=== PATIENT | male | born 1965 ===

== ENCOUNTER 2024-09-28 10:34 | Inpatient (IN) | payer OTHER, SELFPAY ==
[2024-09-28] VITALS (69 sets, daily range): BP systolic 51–220; BP diastolic 39–133; BMI 29.9
[2024-09-28 07:50] LABS: Glucose - Point of Care 97 mg/dl (70-99)
--- NOTE | 2024-09-28 07:51 | ED.GENMED ---
History of Present Illness
General
Chief Complaint: Blood Pressure Problem
Source: ambulance crew and other (alf guards)
Exam Limitations: altered mental status
Time Seen by Provider: 09/28/24 07:47
Nursing documentation reviewed up to this point in time: agreed with
History of Present Illness
History of Present Illness:
59-year-old male presents emergency department due to altered mental status. He was last seen last night. Upon arrival he had a seizure, and bit his tongue.
Past History
Social History
Living: alf
Review of Systems
Review of Systems
Allergies reviewed?: Yes
Unable to obtain full review of systems at this time due to: other (Altered mental status)
All Other Systems: Not applicable
EENT: Reports other (Tongue bleeding)
Neurological: Reports other (Altered mental status, seizures)
Phy Exam
Physical Exam
Physical Exam:
Physical Exam
General: Hypertensive 220/110
Neck: supple. no meningeal signs. normal posterior pharynx
Heart: s1/s2 regular rate and rhythm, no murmur. equal radial
pulses.
HEENT: Pupils equal round reactive to light, EOMI, tongue bleeding
Lungs: no acute respiratory distress. clear bilaterally
Abdomen: normal bowel sounds. not tender. no CVAT
Neuro: Eyes open spontaneously, not following command, moving all extremities
Skin: no rash
Psychiatric: well kept. interactive and cooperative
Extremities: no edema. no calf tenderness. negative homans. good distal pulses
Course
Orders/Labs/Results
Orders:
Orders
09/28/24 Breakfast
NPO
Allow oral meds: No
Allow clear liquids: No
NPO with Ice Chips: No
09/28/24 07:40
Lorazepam [Ativan] 0.5 mg IV NOW STA
09/28/24 07:41
Lorazepam [Ativan] 2 mg .ROUTE .STK-MED ONE
09/28/24 07:43
Electrocardiogram (*1) Urgent
Reason for Study: Hypertension, Benign
09/28/24 07:44
EKG- Treatment ONCE
09/28/24 07:47
CT Head & Neck Angio W/wo IV Urgent
Comment:
Reason For Exam: altered mental status, seizure
CT Head W/o Iv Contrast Urgent
Comment:
Reason For Exam: altered mental status, seizure
Bedside Glucose- Treatment ONCE
Cardiac Monitoring- Treatment ONCE
Pulse Ox/cont/shift [RESP] Stat
Quantity: 1
09/28/24 07:52
Levetiracetam Injectable [Keppra] 1,000 mg IV NOW STA
09/28/24 07:53
Urine Drug Abuse Screen Urgent
09/28/24 07:57
Alcohol Urgent
CPK [Creatine Phosphokinase] Urgent
Complete Blood Count/With Diff Urgent
Comprehensive Metabolic Panel Urgent
Cortisol, Random Urgent
Comment: ADD ON
Folate Urgent
Comment: ADD ON
Magnesium Urgent
PTT Urgent
Prolactin Urgent
Prothrombin Time Urgent
Serum Osmolality Urgent
Comment: ADD ON
TSH Reflex To Free T4 Urgent
Comment: ADD ON
Troponin I Urgent
Vitamin B12 Urgent
Comment: ADD ON
09/28/24 08:43
EEG Routine Routine
Reason for Exam: seizure
09/28/24 08:44
Urine Drug Abuse Screen Routine
MR Brain Without Contrast Routine
Comment:
Reason For Exam: seizure
OK for patient to be off Cardiac Monitoring for MRI: No
Recent pill cam endoscopy?: No
09/28/24 08:56
Add On- LAB Urgent
Tests Added?: TSH with reflex T4, serum osmolality
Urine Sodium Urgent
09/28/24 08:57
CR Chest Portable - 1 View Urgent
Comment:
Reason For Exam: altered mental status
Reason Study Needs to be Portable: Patient Unstable
09/28/24 09:08
3% Sodium Chloride 50 ml [Sodium Chloride 3%] 50 ml IV NOW
09/28/24 09:10
Alcohol Routine
Magnesium Routine
Blood Culture Q30M
SALLY Source: Blood/Venous
Specimen Description:
Blood Culture Q30M
SALLY Source: Blood/Venous
Specimen Description:
09/28/24 09:11
Lactic Acid Q4H
Comment: CANCEL 2nd LACTIC ACID IF 1st LACTIC ACID IS LESS THAN 2
09/28/24 09:20
Basic Metabolic Panel Urgent
09/28/24 09:29
Urine Creatinine Stat
Urine Culture Reflexed from UA [Urinalysis Reflex To Culture] Stat
Urine Sodium Stat
Urine Uric Acid Stat
09/28/24 09:30
Add On- LAB Stat
Tests Added?: cortisol random
09/28/24 09:34
Longoria Catheter [Catheter- Indwelling] As Directed
Reason for insertion: I&O's Critical Care
Assess insertion reason daily.Remove if no longer applicable: Yes
09/28/24 09:37
Naloxone [Narcan] 0.4 mg IV NOW STA
09/28/24 09:43
Naloxone [Narcan] 0.4 mg .ROUTE .STK-MED ONE
Propofol 1,000,000 Mcg/100 ml [Diprivan] 1,000,000 mcg in 100 ml .ROUTE .STK-MED
09/28/24 10:07
Admit/Transfer Patient As Directed
Co-Sign Provider:
Level of Care: Inpatient admission
Assign to:: ICU
Physician / Group: Hospitalist
Diagnosis: hyponatremia seizures
Reason for Hospitalization: hyponatremia seizures
Expected length of stay greater than two midnights?: Yes
ELOS- Estimated Length of Stay in days: 5
I certify the patient meets the requirements for IP care: Yes
PRN Pain Medication Management As Directed
May give lesser potent ordered pain med per pt: Yes
preference::
Protocol:: Medication orders for pain may be administered in a
manner that supports deferring to patient preference
when the pt is:
- Requesting an ordered lesser potent pain medication.
Least to most potent pain medications are defined
as: acetaminophen < NSAID < tramadol < opioids
(morphine, oxycodone, hydromorphone).
- Requesting a lesser dose of the same medication IF
ORDERED.
- Requesting a less intrusive route of administration
if both routes are prescribed by the provider (PO <
IV).
09/28/24 10:08
Code Status As Directed
Resuscitation Status: Full Code
09/28/24 10:12
Add On- LAB Urgent
Tests Added?: B12, Folate, B1 serul level
COVID-19 Antigen Stat
Source: Nasal Swab
Drug Screen, Urine [Urine Drug Abuse Screen] Stat
Date Specimen was Collected: 09/28/24
Time Specimen was Collected: 10:11
Osmolality, Random Urine Stat
Date Specimen was Collected: 09/28/24
Time Specimen was Collected: 10:11
Urinalysis Reflex To Culture Urgent
Date Specimen was Collected: 09/28/24
Time Specimen was Collected: 10:11
Urine Microscopic Reflex Cult Urgent
Influenza A+B Rapid Molecular Stat
SALLY Source: Nasal Swab
Specimen Description:
Precautions As Directed
Type of Precautions: Seizure
09/28/24 10:13
NEPHROLOGY CONSULT Routine
Consulting Provider: Augustin Hartman
Was physician already notified: Yes
Reason for consult: hyponatremia
NEUROLOGY CONSULT Routine
Consulting Provider: Monique Rice
Was physician already notified: Yes
Reason for consult: seizures
09/28/24 10:15
PSYCHIATRY CONSULT Routine
Consulting Provider: Ander Alfonso
Was physician already notified: Yes
Reason for consult: concern for psych-meds induced hyponatremia
09/28/24 10:19
Labetalol HCl [Trandate] 10 mg IV Q6HPRN PRN
09/28/24 10:51
BMP [Basic Metabolic Panel] Stat
Procalcitonin Stat
PCT Algorithmm Indication: Respiratory
09/28/24 11:58
BMP [Basic Metabolic Panel] Q4H
Acetaminophen [Tylenol] 650 mg PO Q4HPRN PRN
Bisacodyl [Dulcolax] 10 mg RECTAL [id number] PRN
Dextrose 5%/Lactringers 1000ML [D5lr] 1,000 ml IV 1,000 mls/hr
Docusate W/Senna [Senokot-S] 1 tablet PO BIDPRN PRN
Ondansetron Injectable [Zofran] 4 mg IV Q8HPRN PRN
Polyethylene Glycol Powder [Miralax] 17 grams PO DAILYPRN PRN
09/28/24 11:58
Activity As Directed
Activity Level: Out of Bed-Early Mobility
Pneumatic Compression Sleeves As Directed
Type: Knee high
Vital Signs As Directed
Frequency: Per unit guidelines
DX Deep Vein Thrombosis Video Routine
09/28/24 12:00
Ampicillin/Sulbactam 3 G [Unasyn] 3 gm 0.9% Sodium Chloride 100 ml [Nss] 100 ml IV Q6H
09/28/24 13:00
Lactic Acid Q4H
Comment: CANCEL 2nd LACTIC ACID IF 1st LACTIC ACID IS LESS THAN 2
09/28/24 15:58
BMP [Basic Metabolic Panel] Q4H
09/28/24 16:00
Thiamine Injection 500 mg 0.9% Sodium Chloride 250 ml [Nss] 250 ml IV Q8
09/28/24 19:58
BMP [Basic Metabolic Panel] Q4H
09/28/24 20:00
Levetiracetam Injectable [Keppra] 500 mg IV Q12
09/28/24 23:58
BMP [Basic Metabolic Panel] Q4H
09/29/24 03:58
BMP [Basic Metabolic Panel] Q4H
09/29/24 06:00
Complete Blood Count/With Diff IN AM
Comprehensive Metabolic Panel IN AM
09/29/24 07:58
BMP [Basic Metabolic Panel] Q4H
09/29/24 11:58
BMP [Basic Metabolic Panel] Q4H
09/29/24 15:58
BMP [Basic Metabolic Panel] Q4H
Abnormal Lab Results
09/28/24 09/28/24 09/28/24
07:57 09:11 10:12
MPV 11.0 H fL
(7.4-10.4)
Abs Immat Gran (auto) 0.1 H 10^3/uL
(0-0.05)
Absolute Neuts (auto) 7.9 H 10^3/uL
(1.4-6.5)
Neutrophils % 77.7 H %
(42.2-75.2)
Lymphocytes % 15.5 L %
(20.5-51.1)
Sodium 115 L* mmol/L
(135-145)
Chloride 75 L mmol/L
(98-107)
BUN 21 H mg/dl
(9-20)
Serum Osmolality 240 L mOsm/kg
(275-300)
Lactic Acid 2.3 H mmol/L
(0.7-2.0)
Creatine Kinase 860 H U/L
(55-170)
Ur Occult Blood Reflex 4+ A
(Negative)
Leukocyte Esterase Rfl Trace A
(Negative)
Urine RBC 16-20 A /HPF
(0-2)
Urine Osmolality 192 L mOsm/kg
(300-900)
09/28/24 07:57
09/28/24 07:57
Vital Signs
Initial and Last Documented VS:
Initial Vital Signs
BP
220/133
09/28/24 07:40
Last Documented Vital Signs
Temp Pulse Resp BP Pulse Ox
94.4 F L 69 17 141/99 94
09/28/24 12:00 09/28/24 11:45 09/28/24 11:45 09/28/24 11:30 09/28/24 11:30
MDM/Problems Addressed
Differential Diagnosis Includes:
Intracranial hemorrhage, CVA, hypertensive emergency, hyponatremia, epileptic seizure disorder
MDM/Problems Addressed:
59-year-old male with seizures induced by hyponatremia. Respiratory status stable. CT head no acute findings. 50 mL bolus of 3% normal saline given in consultation with nephrology, Dr. Hartman. Tongue laceration bleeding controlled. Blood
pressure improved. Admit to ICU. Patient seen by neurology, recommended Eli.
Chronic conditions affecting care: HTN and Other (Sickle cell)
Acute Exacerbation and/or Progression of Chronic Illness: HTN
*Radiology
Radiology exam reviewed: radiology read reviewed (CT head no acute findings, CTA no acute findings, except acute airway aspiration)
*Pulse Oximetry
Patient hypoxic: no
*EKG
Interpreted by ED Provider?: Yes
EKG Intrepretation Date: 09/28/24
EKG Intrepretation Time: 07:45
Interpretation: abnormal
Comparison EKG: no comparison EKG present
Heart Rate: 68
Rate: normal
Rhythm: sinus
Isabella: normal axis
Interval: normal interval
QRS Pattern: left vent hypertrophy
Ischemia: no ischemia
*Preschool Aide Interpretation
Rate: normal
Interpretation: normal
Heart Rate: 78
Rhythm: sinus
*Critical Care Note
Total Time (30-74mins, 75-104mins- exclusive of procedures): 45
comment:
Critical care statement: A total of 45 minutes of critical care time was provided for this patient. This includes management of unstable vital signs, evaluation of the patient at bedside, reviewing the patient's pertinent medical records, discussion
with consultants, review of old EKGs and review of pertinent medical records. This time with separate from time utilized to perform the aforementioned documented procedures
Patient Management
Social determinants of health affecting care: Living situation, Poor outpatient follow-up and Poor social support
Discussion with other providers: Hospitalist and Taker Down (Nephrology, neurology)
Escalation/DeEscalation of care consider admission/obs:
ICU admission indicated
ED Attending Note
-
Portions of this chart may have been created with voice recognition software.� Occasional wrong word or��sound alike� substitutions may have occurred due to the inherent limitations of voice recognition software.
Discharge Plan
Departure
Patient Disposition: Admit
Date of Disposition: 09/28/24
Time of Disposition: 08:58
Admit to: ICU
Presentation/result/management discussed w/ accepting MD/DO: Hospitalist
Patient with high blood pressure during this ER visit?: Yes
Condition: Serious
Discharge Problem:
Acute hyponatremia, Seizure, Acute metabolic encephalopathy, Hypothermia
Interventions
Interventions:
*Risk Screen - Suicide Last Done: 09/28/24 08:43
*General Assessment Last Done: 09/28/24 08:43
*Neglect/Abuse Screening Last Done: 09/28/24 08:43
ED- Fall Risk Assessment Last Done: 09/28/24 08:43
*ED COVID-19 Vaccine History Last Done: 09/28/24 08:43
*Nursing Disposition Last Done: 09/28/24 12:00
ED- Cardiac Assessment Last Done: 09/28/24 08:43
ED- Neurological Assessment Last Done: 09/28/24 08:43
ED- Pulmonary Assessment Last Done: 09/28/24 08:43
Discharge Date and Time
Discharge Date/Time: 09/28/24 12:00
[2024-09-28] MEDS: KEPPRA 1000 MG IV (08:24)
[2024-09-28] MEDS: ATIVAN 0.5 MG IV (08:30)
[2024-09-28 08:31] LABS: % Basophils 0.1 % (0-2); % Eosinophils 0.2 % (0-6); % Immature Granulocytes 0.5 % (0-0.5); % Lymphocytes 15.5 % (20.5-51.1); % Neutrophils 77.7 % (42.2-75.2); Absolute Immature Granulocytes 0.1 10^3/uL (0-0.05); Absolute Lymphocytes 1.6 10^3/uL (1.2-3.4); Absolute Monocytes 0.6 10^3/uL (0.1-0.6); Absolute Neutrophils 7.9 10^3/uL (1.4-6.5); Hematocrit 39.6 % (39.0-52.0); Hemoglobin 13.9 g/dL (13.0-18.0); Mean Corp Hgb Conc. 35.1 g/dL (33.0-37.0); Mean Corpuscular Volume 82.5 fL (80.0-94.0); Nucleated Red Blood Cells % 0 % (-); Platelet Count 133 10^3/uL (130-400); Red Cell Dist. Width 12.9 % (11.5-14.5); White Blood Cell Count 10.1 10^3/uL (4.8-10.8)
[2024-09-28 08:37] LABS: INR 1.08; PT 14.3 Sec (11.4-14.6)
[2024-09-28 08:38] LABS: APTT 29.3 Sec (23.4-35.0)
--- NOTE | 2024-09-28 08:38 | CON.NEURO ---
Consultation
Order
Date of Consultation: 09/28/24
Requesting Provider: Ander Crump DO
Reason for Consult: Seizure
Neurology Consultation Note.
HPI: This is a 59-year-old man who presented to [facility] from [facility] on 09/28/2024 with seizure.
ER VS: 220/133, 78, 14, 33.8 C
EKG: NSR, QTc Int : 448 ms
PDMP: None
Labs: Glucose�97, sodium�115, CK 860
CT head wo contrast-moderate white matter leukoaraiosis in the right parietal lobe.
mar: Lorazepam 0.5 mg iv GIVEN ON 09/28/24 AT 08:30 am.
PMH: Polysubstance addiction, psychotic DO, NOS
PSH: Unknown
SH: Active inmate at [facility]
FH: Unknown
All: Haloperidol
Medications: Abilify 300 mg every 4 weeks IM, Seroquel 100 mg nightly, lisinopril 40 mg daily, benztropine 0.5 mg nightly, amlodipine 10 mg daily
ROS: Left lip laceration
General: In no acute distress. Restrained
Cardio: Regular rate and rhythm. Extremities are without cyanosis or edema.
Neuro:
Mental Status: stuporous, grimaces to does not follow requests. Guards the face on the left but not on the right
Cranial Nerves: Orthophoric primary gaze pupils 2 mm, nonreactive. Corneals�positive bilaterally. No facial weakness.
Motor: Flaccid quadriplegia.
Reflexes: Trace throughout
Sensory: Does not localize or grimace to noxious stimuli
Coordination: No tremors myoclonic movements
Gait: deferred
Assessment and Plan:
I. Likely provoked seizure (hyponatremia)
II. Hypertensive emergency
III. Multifactorial encephalopathy (postictal, vascular, metabolic, toxic)
IV. Severe hypothermia (infectious versus medication induced, less likely ictal).
-Aspiration and seizure precautions.
-please check TSH, free T4, ua, ua cx, ua tox.
-Avoid medications known to lower seizure threshold (antipsychotics)
-avoid NS overcorrection greater than 4-6 mill equivalents in first 24 hours to prevent osmotic demyelination syndrome
-Thiamine 100mg QD IV
-Brain MRI wo riaida
-Routine EEG
-DVT prophylaxis.
I personally reviewed all radiology and labs along with past medical records pertinent to current medical problems. Total time spent in patient care is 60 minutes.
Thank you for allowing us to participate in the care of this patient. We will continue to follow. Please do not hesitate to contact us with any questions or concerns.
Subjective/Objective
Subjective Data
Date of Service: September 28, 2024
Objective Data
Vital Signs
Temp Pulse Resp BP Pulse Ox
33.8 C L 72 13 162/98 100
09/28/24 07:46 09/28/24 08:16 09/28/24 08:16 09/28/24 08:16 09/28/24 08:15
Lab Results
09/28/24 07:57
Patient Allergies
haloperidol [From Haldol] Allergy (Verified 09/28/24 07:45)
Unknown
Vital Signs and Labs
-
Vital Signs and Labs:
Vital Signs
Temp Pulse Resp BP Pulse Ox
33.8 C L 63 12 116/78 99
09/28/24 07:46 09/28/24 08:45 09/28/24 08:45 09/28/24 08:45 09/28/24 08:30
Lab Results
09/28/24 07:57
PT 14.3 Sec (11.4-14.6) 09/28/24 07:57
INR 1.08 09/28/24 07:57
APTT 29.3 Sec (23.4-35.0) 09/28/24 07:57
Sodium 115 mmol/L (135-145) L* 09/28/24 07:57
Potassium 4.0 mmol/L (3.5-5.1) 09/28/24 07:57
BUN 21 mg/dl (9-20) H 09/28/24 07:57
Glucose 70 mg/dl (70-99) 09/28/24 07:57
Calcium 8.5 mg/dl (8.4-10.2) 09/28/24 07:57
Home Medications
-
Home Medications
acetaminophen 325 mg tablet 325 mg PO BIDPRN PRN mild pain 09/28/24
amlodipine 10 mg tablet (Norvasc) 10 mg PO HS 09/28/24
aripiprazole 300 mg suspension, extended rel. intramuscular syringe (Maria Elena Cano) 300 mg IM QMONTH 09/28/24
benztropine 0.5 mg tablet 0.5 mg PO HS 09/28/24
lisinopril 40 mg tablet 40 mg PO HS 09/28/24
quetiapine 100 mg tablet (Seroquel) 100 mg PO HS 09/28/24
therapeutic multivitamin 1 tab PO HS 09/28/24
[2024-09-28 08:39] LABS: ALT (SGPT) 28 U/L (0-50); AST (SGOT) 50 U/L (17-59); Albumin 4.4 g/dl (3.5-5.0); Alcohol < 10 mg/dl; Alkaline Phosphatase 80 U/L (38-126); Blood Urea Nitrogen 21 mg/dl (9-20); Calcium 8.5 mg/dl (8.4-10.2); Carbon Dioxide 26 mmol/L (22-30); Chloride 75 mmol/L (98-107); Creatine Phosphokinase 860 U/L (55-170); Estimated Creatinine Clearance 73 ml/min; Glucose 70 mg/dl (70-99); Magnesium 1.6 mg/dl (1.6-2.3); Sodium 115 mmol/L (135-145); Total Bilirubin 0.8 mg/dl (0.2-1.3); Total Protein 6.9 g/dl (6.3-8.2); eGFR > 60.00
[2024-09-28 08:42] LABS: Troponin I 0.024 ng/ml
--- NOTE | 2024-09-28 09:17 | W.CON.NEPH ---
Consultation
-
Date/Time Consultation Requested: September 28, 2024 9 AM
Date/Time Consultation Performed: September 28, 2024 9:15 AM
Requesting Provider: Dr. Crump
Performing Provider: Dr. Augustin Hartman
Reason for Consultation: Hyponatremia
Medical History
-
Chief Complaint: Altered mental status hyponatremia
History of Present Illness:
59-year-old male presents emergency department due to altered mental status. He was last seen last night. Upon arrival he had a seizure In the emergency room. He is arriving from the group home. Patient is verbally unresponsive does respond to
tactile stimuli as he is likely postictal. Unable to get history secondary to patient's mental status although he is on multiple antipsychotic medications including Seroquel and Abilify.
History is obtained in discussing with the ER nurse, group home guards and chart review.
Patient was seen around 9:20 AM and had a seizure in the ER around 730 to 7:40 AM was treated with Ativan. Is also hypothermic
Past Medical History
As per HPI
Social History
Currently in group home Otherwise unobtainable but according to group home guards no access to alcohol
Family History
Unobtainable as per clinical status
Allergies / Home Medications
Allergy/AdvReac Type Severity Reaction Status Date / Time
haloperidol [From Haldol] Allergy Unknown Verified 09/28/24 07:45
�Medication �Instructions �Recorded �Confirmed �Type
acetaminophen 325 mg tablet 325 mg PO BIDPRN PRN mild pain 09/28/24 09/28/24 History
amlodipine 10 mg tablet (Norvasc) 10 mg PO HS 09/28/24 09/28/24 History
aripiprazole 300 mg suspension, 300 mg IM QMONTH 09/28/24 09/28/24 History
extended rel. intramuscular
syringe (Abilify Maintena)
benztropine 0.5 mg tablet 0.5 mg PO HS 09/28/24 09/28/24 History
lisinopril 40 mg tablet 40 mg PO HS 09/28/24 09/28/24 History
quetiapine 100 mg tablet (Seroquel) 100 mg PO HS 09/28/24 09/28/24 History
therapeutic multivitamin 1 tab PO HS 09/28/24 09/28/24 History
Review of Systems
-
Minimal responsiveness unobtainable with altered mental status
Physical Exam
Vital Signs
Vital Signs
Temp Pulse Resp BP Pulse Ox
92.8 F L 63 12 116/78 99
09/28/24 07:46 09/28/24 08:45 09/28/24 08:45 09/28/24 08:45 09/28/24 08:30
Lab Results
WBC 10.1 10^3/uL (4.8-10.8) 09/28/24 07:57
RBC 4.80 10^6/uL (4.70-6.10) 09/28/24 07:57
Hgb 13.9 g/dL (13.0-18.0) 09/28/24 07:57
Hct 39.6 % (39.0-52.0) 09/28/24 07:57
Plt Count 133 10^3/uL (130-400) 09/28/24 07:57
Sodium 115 mmol/L (135-145) L* 09/28/24 07:57
Potassium 4.0 mmol/L (3.5-5.1) 09/28/24 07:57
Chloride 75 mmol/L (98-107) L 09/28/24 07:57
Carbon Dioxide 26 mmol/L (22-30) 09/28/24 07:57
BUN 21 mg/dl (9-20) H 09/28/24 07:57
Creatinine 1.1 mg/dL (0.7-1.3) 09/28/24 07:57
eGFR > 60.00 09/28/24 07:57
Glucose 70 mg/dl (70-99) 09/28/24 07:57
Calcium 8.5 mg/dl (8.4-10.2) 09/28/24 07:57
Albumin 4.4 g/dl (3.5-5.0) 09/28/24 07:57
Physical Exam
General no acute distress
HEENT no cephalic atraumatic extraocular muscle intact no scleral icterus no JVD neck supple
lungs clear to auscultation bilateral
heart regular S1-S2 positive
abdomen soft nontender positive bowel sounds
extremities no edema pulses present bilateral
Neurologically Responsive to tactile stimulus only
Skin no lesions no abrasions no petechiae
Psych no bizarre behavior
Data Reviewed
-
Radiology: Image Personally Visualized and interpreted
Labs: Labs Reviewed by me
Critical Care Time (in minutes): 31 minutes
Assessment/Plan
-
59-year-old male presents emergency department due to altered mental status. He was last seen last night. Upon arrival he had a seizure In the emergency room. He is arriving from the group home. Patient is verbally unresponsive does respond to
tactile stimuli as he is likely postictal. Unable to get history secondary to patient's mental status although he is on multiple antipsychotic medications including Seroquel and Abilify
Found to have a sodium of 115 renal consult for sodium of 115
Impression:
Hyponatremia 115 on admission
Status post seizure
Psychiatric history
Hypothermic
Plan:
With active seizure on arrival will give 50 mL of 3% saline.
Insert Longoria catheter.
Repeat basic metabolic panel after bolus.
Every 4 BMP.
Strict monitoring of urine output to avoid overcorrection greater than 4-6 mill equivalents in first 24 hours.
Fluid restrict/n.p.o.
Total Time Spent with Patient (in minutes): 31 minutes Critical care time
[2024-09-28 09:41] LABS: Magnesium 1.6 mg/dl (1.6-2.3)
[2024-09-28 09:42] LABS: Lactic Acid 2.3 mmol/L (0.7-2.0)
[2024-09-28 09:43] LABS: Alcohol None Detected
[2024-09-28] MEDS: NARCAN 0.4 MG IV (09:46)
[2024-09-28] MEDS: SODIUM CHLORIDE 3% 50 IV (09:48)
--- NOTE | 2024-09-28 10:16 | HPS.HSE ---
Addendum entered and electronically signed by Kenneth Nguyen MD 09/28/24 15:50:
#Mild R to L mediastinal shift
without signs of pneumothorax on XR
Original Note:
Family Physician
-
Family Physician: Facility [facility]
Chief Complaint
-
seizures
History of Present Illness
59yo M with HTN, psychiatric d/o, incarcerated in [facility] brought 2/2 significant sedation, poor responsiveness and seizures with tongue biting. Found severe hyponatremia. GIven 3% saline. Narcan given in ED- no significant effect but would also be
masked by post-ictal state.
Medical History
Past Medical History
Past Medical History: Reports Other (see HPI)
Past Surgical History: Reports None
Social History
Tobacco: Non-smoker
Alcohol: None
Drug: None
Living: Half-Way
Family History
Family History: Not pertinent
Allergies / Home Medications
Allergies reflects when Allergies were last updated in [facility].
Home Medications with original date entered in [facility]
Allergy/Medication List:
Allergies
Allergy/AdvReac Type Severity Reaction Status Date / Time
haloperidol [From Haldol] Allergy Unknown Verified 09/28/24 07:45
Home Medications
acetaminophen 325 mg tablet 325 mg PO BIDPRN PRN mild pain 09/28/24
amlodipine 10 mg tablet (Norvasc) 10 mg PO HS 09/28/24
aripiprazole 300 mg suspension, extended rel. intramuscular syringe (Abilify Maintena) 300 mg IM QMONTH 09/28/24
benztropine 0.5 mg tablet 0.5 mg PO HS 09/28/24
lisinopril 40 mg tablet 40 mg PO HS 09/28/24
quetiapine 100 mg tablet (Seroquel) 100 mg PO HS 09/28/24
therapeutic multivitamin 1 tab PO HS 09/28/24
Review of Systems
-
Unable to obtain full review of systems at this time due to: Acuity
Physical Exam
Vital Signs
Vital Signs
Temp Pulse Resp BP Pulse Ox
92.8 F L 63 12 116/78 99
09/28/24 07:46 09/28/24 08:45 09/28/24 08:45 09/28/24 08:45 09/28/24 08:30
Physical Exam
General: No Apparent Distress, Comfortable and Other (lethargic)
HEENT: Anicteric, Moist mucous membranes and Other (pinpoint pupils)
Respiratory: Crackles; No Wheezes or Rales
Cardiac: Regular Rhythm; No Bradycardia or Murmur
GI: Soft, Non Tender and Non Distended
Musculoskeletal: No Clubbing, No Cyanosis and No Edema
Skin: Warm; No Dry or Jaundice
Neuro: Nonfocal/grossly intact and Other (lethargic); No Facial Droop
Laboratory Results
-
09/28/24 07:57
Laboratory Results
PT 14.3 Sec (11.4-14.6) 09/28/24 07:57
INR 1.08 09/28/24 07:57
APTT 29.3 Sec (23.4-35.0) 09/28/24 07:57
Lactic Acid 2.3 mmol/L (0.7-2.0) H 09/28/24 09:11
Total Bilirubin 0.8 mg/dl (0.2-1.3) 09/28/24 07:57
AST 50 U/L (17-59) 09/28/24 07:57
ALT 28 U/L (0-50) 09/28/24 07:57
Alkaline Phosphatase 80 U/L (38-126) 09/28/24 07:57
Troponin I 0.024 ng/ml 09/28/24 07:57
Data Reviewed
-
CT Scan: Report Reviewed by me
Lab Data: Labs Reviewed by me
Impression/Plan
-
A/P
#Hyponatremia, severe with seizures
most likely 2/2 psychiatric meds - hold
3%NS and follow BMP q4h
Nephrology follow up
Keppra loaded in ED - will continue
Urine NA, Cr, Osm, Uric acid, UA
seizure precautions
Neprhology consult
#Acute metabolic encephalopathy
significant sedation
most likely post-ictal
watch for respiratory distress and CTA noted acute airway aspiration
CT head without acute hemorrhage or stroke
MRI brain
neurology
Keppra
CTA head without LVO or carotid stenosis
check UDS
NPO
check B12, folate, start thiamine Wernicke protocol
#Hypothermia
#Aspiration, cannot r/o early pneumonia
With no hypoglycemia and no hypotension - unlikely mixedema coma or severe adrenal insufficiency. Complete w/u with TSH and Cortisol
2/2 seizures
Start Unasyn for now
Warming blanket
#Psychiatric d/o
hold meds
Psych consult for further mgmt when patient more awake
#Essential HTN with HTN emergency on admission
labetalol PRN
DVT ppx SCDs
Full code
I have spent at least 78min of critical care time reviewing chart, test results, communication with cosnultants and direct patient care
[2024-09-28 10:22] LABS: Cortisol, Random 52.8 ug/dl; TSH Reflex To Free T4 2.85 uIU/ml (0.47-4.68)
[2024-09-28 10:28] LABS: Osmolality Serum 240 mOsm/kg (275-300)
[2024-09-28 10:32] LABS: Urine Albumin Trace (Neg - Trace); Urine Bilirubin Negative (Negative); Urine Character Slightly Cloudy (Clear); Urine Color Yellow; Urine Glucose Negative (Negative); Urine Ketone Negative (Negative); Urine Leukocyte Trace (Negative); Urine Nitrite Negative (Negative); Urine Occult Blood 4+ (Negative); Urine Specific Gravity 1.005 (<1.030); Urine Urobilinogen Negative (Neg - 1+)
[2024-09-28 10:36] LABS: Osmolality Urine 192 mOsm/kg (300-900)
[2024-09-28 10:39] LABS: COVID-19 Antigen Negative (Negative)
[2024-09-28 10:53] LABS: Amphetamines Negative (Negative); Barbiturates Negative (Negative); Benzodiazepines Negative (Negative); Buprenorphine Negative (Negative); Cocaine Negative (Negative); Marijuana Negative (Negative); Methadone Negative (Negative); Methamphetamines Negative (Negative); Opiates Negative (Negative); Phencyclidine Negative (Negative); Tricyclic Antidepressants Negative (Negative)
--- NOTE | 2024-09-28 11:08 | CON.INTV ---
Consultation
Consultation Request
Date/Time Consultation Requested: 09/28/2024-11 AM
Date/Time Consultation Performed: 09/28/2019 5-12 noon
Requesting Provider: Hospitalist
Performing Provider: Dr. Dobbins
Reason for Consultation: Severe hyponatremia/seizures/critical care management
Medical History
-
Chief Complaint: Mental status changes
History of Present Illness:
59-year-old non-smoking incarcerated male with a history of hypertension and psychiatric disorder presented after seizure with mental status changes found to have severe hyponatremia given 3% saline-supervisor claims consulted for severe hyponatremia,
seizures, critical care management 09/28/2024. Patient has significant mental status changes and review of systems was unreliable.
Past Medical History
Past Medical History: None (Hypertension. Psychiatric disorder. Polysubstance abuse. Incarcerated.)
Social History
Tobacco: Non-smoker
Alcohol: None
Drug: None
Personal: Single
Living: Half-Way
Occupational Exposures: No known asbestos exposure
Environmental Exposures: No known tuberculosis exposure
Family History
Family History: Reviewed & Not Pertinent
Allergies / Home Medications
Allergies
Allergy/AdvReac Type Severity Reaction Status Date / Time
haloperidol [From Haldol] Allergy Unknown Verified 09/28/24 07:45
Home Medications
�Medication �Instructions �Recorded �Confirmed �Last Taken �Type
acetaminophen 325 mg tablet 325 mg PO BIDPRN PRN mild pain 09/28/24 09/28/24 Unknown History
amlodipine 10 mg tablet (Norvasc) 10 mg PO HS 09/28/24 09/28/24 Unknown History
aripiprazole 300 mg suspension, 300 mg IM QMONTH 09/28/24 09/28/24 09/23/24 History
extended rel. intramuscular
syringe (Maria Elena Terrella)
benztropine 0.5 mg tablet 0.5 mg PO HS 09/28/24 09/28/24 Unknown History
lisinopril 40 mg tablet 40 mg PO HS 09/28/24 09/28/24 Unknown History
quetiapine 100 mg tablet (Seroquel) 100 mg PO HS 09/28/24 09/28/24 Unknown History
therapeutic multivitamin 1 tab PO HS 09/28/24 09/28/24 Unknown History
Review of Systems
-
Unable to Obtain full review of systems at this time due to: Other (Per HPI)
Vitals / Labs / Diagnostic Testing
Vital Signs
Temp Pulse Resp BP Pulse Ox
92.8 F L 63 12 116/78 99
09/28/24 07:46 09/28/24 08:45 09/28/24 08:45 09/28/24 08:45 09/28/24 08:30
Lab Data
09/28/24 07:57
Laboratory Results
09/28/24
07:57
PT 14.3
INR 1.08
APTT 29.3
Microbiology
09/28/24 10:12 Nasal Swab Influenza Types A & B (MARY ALICE) - Final
Negative for Influenza A & B, NAAT
Negative results must be combined with clinical observations
and patient history.
Nucleic Acid Amplification test (NAAT)performed on the
[employer] platform.
Diagnostic Testing:
Physical Exam
-
Exam:
Well-nourished and well-developed in no apparent distress
HEENT-atraumatic, normocephalic
Neck-supple, no JVD, no bruit, significant oral secretions
Heart-regular rate and rhythm-no murmurs, rubs or gallops
Chest-clear to auscultation, no wheezes, crackles
Back-no tenderness
Abdomen-soft, nontender, nondistended, no hepatosplenomegaly
Extremities-no cyanosis, clubbing, edema and good peripheral pulses
Integument-intact, no rashes, lesions or ecchymosis
Neurologically not alert, not oriented not moving extremities
Assessment
-
59-year-old non-smoking incarcerated male with a history of hypertension and psychiatric disorder presented after seizure with mental status changes found to have severe hyponatremia given 3% saline-supervisor claims consulted for severe hyponatremia,
seizures, critical care management 09/28/2024.
Severe hyponatremia with subsequent seizures on psychiatric medications-serum sodium 115
Status post seizure-provoked from hyponatremia
Metabolic encephalopathy
Hypothermia
Aspiration-possible pneumonia related to it-CT chest with mild secretions right side of the trachea layering dependent portion right mainstem bronchus and moderate secretions bronchus intermedius
Hypertensive emergency-blood pressure 220/133
Lactic acidosis
Right hemidiaphragm elevation-mild
Conditions present prior to admission:
Hypertension.
Psychiatric [id number] Abilify, Seroquel
Polysubstance abuse
Incarcerated.
Plan
Patient will be admitted to medical intensive care unit with severe symptomatic hyponatremia
Supplemental oxygen as needed
Monitor end-tidal CO2
Monitor for respiratory depression and need for intubation
Intubated mechanically ventilated if necessary
Aspiration precautions
Nebulizers if needed-currently not bronchospastic
Aspiration precautions-suspect aspiration event-note CT head and neck angiogram-CT chest portion with retained secretions
Follow serum sodium level closely
3% saline-cautious administration
Goal correction 8 mEq/liter in the first 24 hours
Monitor neurologic status closely-rapid correction can rarely leads to osmotic demyelination syndrome
Nephrology evaluation ongoing-correspondence reviewed
Diuretics and potential use of Samsca per nephrology
Check TSH
Check cortisol
Check urine osmolarity and sodium
Neurology evaluation-correspondence reviewed
Thiamine initiated
Brain MRI with gadolinium pending
EEG pending
Keppra provided
Ativan as needed
Check cultures
Follow chest x-ray
Empiric antibiotics-Unasyn initiated
Monitor blood pressure closely
Antihypertensives per nephrology
Nicardipine if needed
DVT prophylaxis recommended
Early nutrition once mental status improves
Early mobilization
Critical care statement: A total of 65 minutes of critical care time was provided for this patient today. This includes management of unstable vital signs, evaluation of the patient at bedside, reviewing the patient's pertinent medical records
including radiographs, microbiology, laboratory evaluations, and discussion with primary team, consultants, pharmacy, charge nurse, critical care nursing, and respiratory therapy.
Diagnostic data:
Chest x-ray 09/28/2024-mild right to left mediastinal shift, moderate elevation right hemidiaphragm
CT head 09/28/2024-no acute intracranial hemorrhage or transcortical infarct, moderate white matter leukoaraiosis in the right parietal lobe
CT head neck angiogram 09/28/2024-acute airway aspiration, no evidence for vertebral artery occlusion or dissection, no evidence for large vessel intracranial stenosis or occlusion
Data Reviewed
-
EKG: Report reviewed by me
Radiology: Report reviewed by me
CT Scan: Image personally visualized and interpreted and Report reviewed by me
Medical Tests (Nuc Med, Echo etc): Report reviewed by me
Labs: Labs reviewed by me
Old Records: Reviewed
Critical Care Time (in minutes): 65
[2024-09-28 11:13] LABS: Blood Urea Nitrogen 20 mg/dl (9-20); Calcium 7.9 mg/dl (8.4-10.2); Carbon Dioxide 26 mmol/L (22-30); Chloride 78 mmol/L (98-107); Estimated Creatinine Clearance 89 ml/min; Glucose 68 mg/dl (70-99); Potassium 3.7 mmol/L (3.5-5.1); Sodium 111 mmol/L (135-145); eGFR > 60.00
[2024-09-28 11:25] LABS: Urine Amorphous Seen
[2024-09-28 11:26] LABS: Urine Red Blood Cell 16-20 /HPF (0-2)
[2024-09-28 11:46] LABS: Procalcitonin < 0.05 ng/ml (0.0-0.25)
--- NOTE | 2024-09-28 12:10 | PTCARENOTE ---
Pt arrived from ED shackled to [facility] (formerly [facility]3] with 2 guards, RN, Monitored. Eyes opened, moaning, non-verbal, not following commands. Pupils pinpoint and reactive. Drooling blood tinged oral secretions. Pt with blood in his mouth from laceration on his
tongue seen near the tip of his tongue and on the left side. Good peripheral pulses, no edema. Left AC#20g protective catheter and right FA#20g protective catheter both flushed and patent with blood return. CHG bath given. Breath sounds coarse
posteriorly, gurgly intermittently. RA pulse ox 97%. +BSX4. NPO. Tongue swollen. Warming blanket as ordered for Core temp 95.6. Indwelling albarran catheter with punch colored urine with clots noted. Stat lock changed to prevent tugging. Upon
completing admission assessment he was noted to have a seizure @ approximately 1233 lasting about 30 seconds. He had rhythmic right facial twitching, upward gaze, HR as high as 107, then ventricular bigeminy in the 70's, desaturated to 50% on RA, 6
liters ETCO2 nasal cannula applied. He was postictal, sonorous with no gag & flaccid. Dr. Dobbins, Dr. Nguyen and Dr. Hartman notified. Ativan administered. Multiple 3% sodium Chloride orders in the NOV. Awaiting further clarification from
Patrick and Dr. Hartman. Safe environment maintained. Aspiration precautions maintained.
[2024-09-28 12:16] LABS: Folate 12.7 ng/ml (2.76-20); Vitamin B12 556 pg/ml (239-931)
[2024-09-28] MEDS: SODIUM CHLORIDE 3% 250 IV (12:25)
[2024-09-28] MEDS: ATIVAN 2 MG IV (12:40)
[2024-09-28] MEDS: UNASYN IV ×3 (12:54→23:31)
--- NOTE | 2024-09-28 13:09 | PTCARENOTE ---
Clarification on sodium chloride bags and drip rates with pharmacy, Dr. Hartman & Dr. Nguyen. Verified IVF to be infusing. Currently D5LR @ 1000ml/hr ordered, will hold as ordered form Dr. Nguyen. Size 32 righ5t nare nasal trumpet inserted
for airway protection, ETCO2 19-25, Dr. Dobbins aware. Sonorous since seizure @ 1233 w/ Right facial twitching, groaning, drooling bloody secretions, diminished respirations with desaturation 50% on RA, HR 107, lasting for no more than 30 seconds.
Remains unresponsive & sonorous at this time. Pharmacy obtaining correct sodium chloride infusion/bolus. Left FA#18 protective catheter placed.
[2024-09-28 13:12] LABS: Glucose - Point of Care 76 mg/dl (70-99)
--- NOTE | 2024-09-28 13:15 | W.PN.UPDATE ---
Addendum entered and electronically signed by Kenneth Nguyen MD 09/28/24 15:57:
Urine sodium and osmolarity low - suspect that patient has polydipsia-induced hyponatremia
Original Note:
Update Note
Progress Note Update
with worsening hyponatremia- switch thiamine to IM injections to avoid dilution with NS
[2024-09-28 13:28] LABS: Lactic Acid 2.4 mmol/L (0.7-2.0)
[2024-09-28] MEDS: SODIUM CHLORIDE 3% 100 IV (13:28)
--- NOTE | 2024-09-28 13:30 | CON.INTV ---
Consultation
Consultation Request
Date/Time Consultation Requested: 09/28/2024,10:41
Date/Time Consultation Performed: 09/28/2024,13:32
Requesting Provider: Kenneth Nguyen
Performing Provider: Alin Nicole
Reason for Consultation: Severe hyponatremia with Seizures
Medical History
-
Chief Complaint: Seizures and change in mental status
History of Present Illness:
Patient is a 59-year-old male coming from skilled nursing, past medical history of polysubstance use disorder, essential hypertension, and psychiatric disorder who was brought to the emergency after seizures associated with tongue bite and change in mental
status.He did not respond to naloxone in ER, and his blood sugar level was 70. His workup showed severe hyponatremia of 115, received 3% hypertonic saline boluses in the ER, fresh BMP pending.Patient unconscious and unable to provide any history.
[employer] consultation for severe hyponatremia, seizures and declining mental status on 09/28/2024
Past Medical History
Past Medical History: HTN, Psychiatric and Other (Substance)
Social History
Tobacco: Non-smoker
Alcohol: None
Drug: None
Personal: Single
Living: Care Home
Employment: Other (Patient unable to provide history)
Family History
Family History: Unable to Obtain
Allergies / Home Medications
Allergies
Allergy/AdvReac Type Severity Reaction Status Date / Time
haloperidol [From Haldol] Allergy Unknown Verified 09/28/24 07:45
Home Medications
�Medication �Instructions �Recorded �Confirmed �Last Taken �Type
acetaminophen 325 mg tablet 325 mg PO BIDPRN PRN mild pain 09/28/24 09/28/24 Unknown History
amlodipine 10 mg tablet (Norvasc) 10 mg PO HS 09/28/24 09/28/24 Unknown History
aripiprazole 300 mg suspension, 300 mg IM QMONTH 09/28/24 09/28/24 09/23/24 History
extended rel. intramuscular
syringe (Abilify Maintena)
benztropine 0.5 mg tablet 0.5 mg PO 09/28/24 09/28/24 Unknown History
lisinopril 40 mg tablet 40 mg PO HS 09/28/24 09/28/24 Unknown History
quetiapine 100 mg tablet (Seroquel) 100 mg PO HS 09/28/24 09/28/24 Unknown History
therapeutic multivitamin 1 tab PO HS 09/28/24 09/28/24 Unknown History
Review of Systems
-
Unable to Obtain full review of systems at this time due to: Other (Patient unconscious)
Vitals / Labs / Diagnostic Testing
Vital Signs
Temp Pulse Resp BP Pulse Ox
94.4 F L 69 17 141/99 94
09/28/24 12:00 09/28/24 11:45 09/28/24 11:45 09/28/24 11:30 09/28/24 11:30
Lab Data
09/28/24 07:57
Laboratory Results
09/28/24
07:57
PT 14.3
INR 1.08
APTT 29.3
Microbiology
09/28/24 10:12 Nasal Swab Influenza Types A & B (MARY ALICE) - Final
Negative for Influenza A & B, NAAT
Negative results must be combined with clinical observations
and patient history.
Nucleic Acid Amplification test (NAAT)performed on the
[employer] platform.
Diagnostic Testing:
Physical Exam
-
HEENT: Normocephalic and Other (Tongue bite wound on lateral side of tongue)
Cardiovascular: S1/S2, Regular Rhythm and Other (Tachycardia)
Respiratory: Other (Gurgling sounds in throat, harsh vesicular breathing with coarse rhonchi)
GI: Soft, Non Distended and Normal Bowel Sounds
Neurology: Other (GCS 3/15, patient unconscious)
Skin: Warm
General: Other
Assessment
-
Impression
Patient is a 59-year-old male coming from skilled nursing,with past medical history of polysubstance use disorder, essential hypertension, and psychiatric disorder who was brought to the emergency after seizures associated with tongue bite and change in
mental status.He did not respond to naloxone in ER, and his blood sugar level was 70. His workup showed severe hyponatremia of 115, received 3% hypertonic saline boluses in the ER, fresh BMP pending.Patient unconscious and unable to provide any
history. [employer] consultation for severe hyponatremia, seizures and declining mental status on 09/28/2024
Assessment
Severe symptomatic hyponatremia of 115, with seizures associated with tongue bite
Hypothermia, Temperature 94.4
Metabolic encephalopathy secondary to hyponatremia/postictal phase/hypothermia
Aspiration event -CT chest with mild secretions right side of the trachea layering dependent portion right mainstem bronchus and moderate secretions bronchus intermedius
Hypertensive emergency with evident endorgan damage
Conditions present prior to admission:
Essential hypertension.
Unknown psychiatric disorder-on Abilify and Seroquel
Polysubstance abuse
Incarcerated.
Plan
Severe symptomatic hyponatremia, resulting in seizures associated with tongue bite
Supplemental oxygen as needed
Patient has labored breathing, gurgling sounds audible, follow ABG
Intubation may be necessary
CT chest indicates a possible aspiration event
Aspiration precautions
Maintain oxygen saturation, follow ABGs, assess intubation needs closely
Frequent BMP, to monitor sodium levels closely
Cautious administration of 3% hypertonic saline to avoid rapid correction as that can lead to osmotic demyelination syndrome, frequent neuro checkups to avoid
Recommend 8 mEq/L correction in 24 hours
Neurology consultation
Nephrology consultation appreciated -diuretics and potential use of Samsca per nephrology
Hypothermia
TSH and serum cortisol within normal limits
Total leukocyte count within normal limits
Empiric Unasyn started
Blood cultures pending
Seizures
No prior history of seizures
Could be secondary to hyponatremia
CT scan of head-mild white matter leukoaraiosis
CTA neck-bilateral severe tortuousity of internal carotid arteries
Brain MRI with gadolinium pending
EEG pending
Keppra 500 mg 12 hourly
Ativan as needed
Hypertensive emergency
Blood pressure is running high with a peak of 225/113 on presentation
Continue to monitor blood pressure closely
DVT prophylaxis sequential compression devices
N.p.o. for now, advance diet as tolerated
No prior history of cardiac disease, EKG done in ER shows QT interval of 448 ms
Breathing on 5 L oxygen, no prior history of pulmonary disease
Full code
Diagnostic data:
Chest x-ray 09/28/2024-mild right to left mediastinal shift, moderate elevation right hemidiaphragm
CT head 09/28/2024-no acute intracranial hemorrhage or transcortical infarct, moderate white matter leukoaraiosis in the right parietal lobe
CT head neck angiogram 09/28/2024-acute airway aspiration, no evidence for vertebral artery occlusion or dissection, no evidence for large vessel intracranial stenosis or occlusion
[2024-09-28 13:34] LABS: Blood Urea Nitrogen 19 mg/dl (9-20); Carbon Dioxide 27 mmol/L (22-30); Chloride 75 mmol/L (98-107); Estimated Creatinine Clearance 73 ml/min; Glucose 73 mg/dl (70-99); Potassium 3.7 mmol/L (3.5-5.1); Sodium 111 mmol/L (135-145); eGFR > 60.00
--- NOTE | 2024-09-28 13:39 | PTCARENOTE ---
Dr. Rice notified via TT of the seizure @ 1233 with desaturation. She is aware he received Ativan IVP at that time and 6 liters nasal cannula applied. Orders obtained.
[2024-09-28 13:45] LABS: Urine Albumin 2+ (Neg - Trace); Urine Bilirubin Negative (Negative); Urine Character Very Cloudy (Clear); Urine Color Red; Urine Glucose Negative (Negative); Urine Ketone Negative (Negative); Urine Leukocyte Trace (Negative); Urine Nitrite Negative (Negative); Urine Occult Blood 4+ (Negative); Urine Specific Gravity 1.005 (<1.030); Urine Urobilinogen Negative (Neg - 1+)
--- NOTE | 2024-09-28 13:57 | EEGC.RPT ---
Continuous EEG Report
Recording
Start Date of Data Reviewed: 09/28/24
Done with Video Recording: Yes
Electrocardiogram: Unremarkable
Report
TECHNICAL REMARKS:��This is a technically satisfactory eighteen channel record employing 21 disc electrodes applied according to a measured international 10-20 electrode placement system.��There were no significant technical difficulties.��The study
was done on a [employer] System.
�
CLINICAL HISTORY: This is a�59-year-old man with severe hyponatremia and seizure. This study was requested to look for epileptiform abnormalities.
STUDY DURATION:� 27 min,�46 secs
MEDICATIONS: Keppra, Ativan
REPORT: �At the onset of the EEG, the patient is stuporous. The background activity consists of 54-6 Hz, impersistent, posteriorly dominant, moderate amplitude, symmetric, and rhythmic activity. Continuous generalized, 2-3 Hz, 30-50 uV at times
sharply contoured polymorphic delta activity was seen.� Stepwise intermittent photic stimulation(1-31 hz) did not induce additional abnormalities. Hyperventilation was not performed. Drowsiness is characterized by low amplitude mixed frequency
activity, decreased eye blinking, and muscle artifact. No epileptiform activity was seen. Excessive beta activity was present.
�
IMPRESSION: �This is an abnormal EEG recorded in altered mental status due to a moderate-to severe generalized slowing. This finding indicates diffuse cerebral dysfunction, nonspecific in terms of etiology.�
�
[2024-09-28 14:10] LABS: Amphetamines Negative (Negative); Barbiturates Negative (Negative); Benzodiazepines Negative (Negative); Buprenorphine Negative (Negative); Cocaine Negative (Negative); Marijuana Negative (Negative); Methadone Negative (Negative); Methamphetamines Negative (Negative); Opiates Negative (Negative); Phencyclidine Negative (Negative); Tricyclic Antidepressants Negative (Negative)
[2024-09-28 14:12] LABS: Urine Squamous Cell 0-2 /LPF (Few)
[2024-09-28 14:13] LABS: Urine Red Blood Cell >100 /HPF (0-2)
[2024-09-28 14:18] LABS: Phosphorus 2.6 mg/dl (2.5-4.5)
[2024-09-28 14:24] LABS: Urine Sodium 18 mmol/L (30-90)
[2024-09-28] MEDS: CEREBYX 132 MG IV (14:39)
--- NOTE | 2024-09-28 15:00 | PTCARENOTE ---
PICC currently being placed by VAT team. Dr. Hartman placed orders for Hypertonic Sodium chloride. BMP's to follow.
[2024-09-28] MEDS: MAGNESIUM SULFATE 102 GRAMS IV (15:26)
[2024-09-28 15:44] LABS: Urine Uric Acid 10.1 mg/dl
[2024-09-28] MEDS: KCL 160 MEQ IV (15:45)
--- NOTE | 2024-09-28 15:55 | PTCARENOTE ---
Notified care team that he is unabl to secure his airway. He has no gag with deep oral suction. Desaturation to 88% with ETCo2 19-24. Dr. Dobbins to the bedside. Intubated with #8ETT secured 25cm on the right, Anesthesia noted the tongue lacerations
and blood on his tongue. AC 18/450/.10/+5. Orders obtained for sedation, restraints and follow up ABG.
[2024-09-28] MEDS: SODIUM CHLORIDE 3% 500 IV (16:00)
--- NOTE | 2024-09-28 16:08 | W.PN.ANESINT ---
Anesthesia Intubation Note
- Intubation Note
Intubation Note:
Diagnosis: respiratory distress
Blade: glidescope
Tube Size: 8.0
Depth: 24 cm at lip
Side Taped: right
Drugs Used: propofol- 100 mg, succs- 100 mg , phenylephrine- 200 mcg
Grade View: 1
EtCO2 Present: yes
Atraumatic: yes
Attempts: 1
Insertion Start and Stop Time: 15:58-16:03
SaO2 Pre: 95
SaO2 Post: 100
Glidescope Used: yes
Other Airway Adjustments: no
Pre-Oxygenated: yes
Portable Chest X-Ray: yes
RSI: yes
Suctioned: yes
Bilateral Breath Sounds Confirmed: yes
Vent Settings:
Settings per ___Attending Physician
[2024-09-28 16:46] LABS: B.E. 0.5 mmol/L; HCO3 24.6 mmol/L (21-28); PCO2 37 mmHg (35-48); PO2 281 mmHg (83-108); pH 7.43 (7.35-7.45)
[2024-09-28 16:47] LABS: Lactic Acid 0.9 mmol/L (0.7-2.0)
[2024-09-28] MEDS: THIAMINE INJECTION 200 MG IV ×2 (16:55→23:31)
--- NOTE | 2024-09-28 16:59 | CS.PSYCHR ---
Consult Summary - Psychiatry
-
Pt is a 59 yo male, brought from [facility] due to change in mental status since last night. Pt had seizure shortly after arrival to the ED, found to have hyponatremia, with sodium level 115 at 8am, 111 at 1 pm. Pt seen after admission to the ICU, not
responsive, with labored respirations, had to be intubated. Psychotropic medications being held due to concern for hyponatremia. Pt given IV Ativan and started on Keppra post-seizure.
Psych Hx: unspecified psychotic disorder, Rx Abilify Maintena long-acting injection 300 mg IM Q month (last injection unknown), Seroquel 100 mg HS, Cogentin 0.5 mg HS
SH: hx of polysubstance use; from [facility]
MSE: unable to interview, unresponsive, then had to be intubated
Imp: Unspecified Psychotic d/o
Encephalopathy due to Hyponatremia, leading to seizure, possibly related to psychotropic medications
Rec: Will follow and assess further when pt able to interview; agree with holding off Seroquel and Cogentin for now
Will follow
[2024-09-28 17:01] LABS: Blood Urea Nitrogen 21 mg/dl (9-20); Calcium 7.8 mg/dl (8.4-10.2); Carbon Dioxide 28 mmol/L (22-30); Chloride 75 mmol/L (98-107); Estimated Creatinine Clearance 61 ml/min; Glucose 130 mg/dl (70-99); Potassium 4.2 mmol/L (3.5-5.1); Sodium 109 mmol/L (135-145); Triglycerides 34 mg/dl (10-149); eGFR > 60.00
[2024-09-28] MEDS: ATROPINE SULFATE 1% DROPS 1 DROP SL (17:51)
--- NOTE | 2024-09-28 19:20 | PTCARENOTE ---
Clarified with Dr. Nguyen frequency of BMP's. Will obtain Q2H and send one now as ordered.
--- NOTE | 2024-09-28 19:24 | PTCARENOTE ---
TT'dby Dr. Garcia to obtain BMP's Q3H. Dr. Nguyen notified.
[2024-09-28] MEDS: KEPPRA 500 MG IV (19:41)
[2024-09-28 19:54] LABS: Blood Urea Nitrogen 22 mg/dl (9-20); Carbon Dioxide 25 mmol/L (22-30); Chloride 77 mmol/L (98-107); Estimated Creatinine Clearance 73 ml/min; Glucose 92 mg/dl (70-99); Potassium 4.6 mmol/L (3.5-5.1); Sodium 111 mmol/L (135-145); eGFR > 60.00
[2024-09-28] MEDS: LEVOPHED 258 MG IV (20:13)
--- NOTE | 2024-09-28 20:22 | PTCARENOTE ---
Pt bladder scan completed approx 19:20, >247ml. Flushed with 20cc NSS, urine flowing--punch colored with small clots. Repeat bladder scan completed now, 4ml residual. Urine continues to be punch colored w/ clots.
[2024-09-28 20:26] LABS: Prolactin 6.1 ng/ml (3.7-17.9)
--- NOTE | 2024-09-28 20:45 | PTCARENOTE ---
Received pt from previous RN. Pt nonverbal, eyes open, does not follow commands, lethargic/drowsy. NSR w/ PVCs on the monitor. ETT #8 23 @ lip repositioned to the left side. AC settings 18/450/60%/5, O2 sat 100%, lungs coarse. [place] in place, temp
sensing, hygiene provided. 3% NaCl infusing @ 30 ml/hr. Levo bag switched to levo DC in NS (see worklist). Prop gtt (see worklist). Right DL PICC. CHG bath provided. Q2T provided. SCDs in place. Two guards @ bedside. Safe environment maintained.
[2024-09-28 23:09] LABS: Blood Urea Nitrogen 23 mg/dl (9-20); Calcium 7.8 mg/dl (8.4-10.2); Carbon Dioxide 24 mmol/L (22-30); Chloride 78 mmol/L (98-107); Estimated Creatinine Clearance 67 ml/min; Glucose 85 mg/dl (70-99); Potassium 4.9 mmol/L (3.5-5.1); Sodium 111 mmol/L (135-145); eGFR > 60.00
[2024-09-29] VITALS (13 sets, daily range): BP systolic 82–131; BP diastolic 53–90; BMI 27.9
[2024-09-29] MEDS: SUBLIMAZE 50 MCG IV ×2 (00:22→18:10)
--- NOTE | 2024-09-29 00:32 | PTCARENOTE ---
BMP provided Q3 (see labs). AC settings 18/450/40%/5, O2 sat 100%. Systems reviewed, no new changes in assessment. See worklist for gtts. Safe environment maintained.
[2024-09-29] MEDS: DIPRIVAN 100 IV ×3 (00:50→18:37)
--- NOTE | 2024-09-29 00:57 | W.PN.UPDATE ---
Update Note
Progress Note Update
Procedure Note: Arterial Line�
� Left Wrist Arrow 20 (11/17)�
Diagnosis:��Seizure, hyponatremia
IV Line Comments: Uneventful Procedure�
Kelby's test completed pre-procedure: Yes�
A-Line Comments: Sterile technique as per standard protocol, Ultrasound guided insertion�
Functioning A-line in situ: Yes�
A-line Insertion Start Time:0040��
A-line in at:��0045
[2024-09-29 02:08] LABS: Blood Urea Nitrogen 24 mg/dl (9-20); Calcium 7.6 mg/dl (8.4-10.2); Carbon Dioxide 24 mmol/L (22-30); Chloride 81 mmol/L (98-107); Estimated Creatinine Clearance 57 ml/min; Glucose 81 mg/dl (70-99); Potassium 4.8 mmol/L (3.5-5.1); Sodium 114 mmol/L (135-145); eGFR 57.54
--- NOTE | 2024-09-29 02:19 | PTCARENOTE ---
Per Dr. Hartman 3% NaCl gtt can be stopped if Na is 114. On recent blood work Na 114. ICU MEDICAL OFFICE WORKER Garcia notified, 3% NaCl gtt on hold.
[2024-09-29] MEDS: ATROPINE SULFATE 1% DROPS 1 DROP SL ×2 (04:18→20:00)
[2024-09-29 04:35] LABS: B.E. 0.3 mmol/L; HCO3 23.1 mmol/L (21-28); PCO2 31 mmHg (35-48); PO2 203 mmHg (83-108); pH 7.48 (7.35-7.45)
[2024-09-29 04:51] LABS: % Basophils 0.1 % (0-2); % Immature Granulocytes 0.3 % (0-0.5); % Monocytes 5.6 % (1.7-9.3); Absolute Lymphocytes 1.5 10^3/uL (1.2-3.4); Absolute Monocytes 0.6 10^3/uL (0.1-0.6); Absolute Neutrophils 8.3 10^3/uL (1.4-6.5); Hematocrit 32.1 % (39.0-52.0); Hemoglobin 11.7 g/dL (13.0-18.0); Mean Corp Hgb Conc. 36.4 g/dL (33.0-37.0); Mean Corpuscular Volume 79.7 fL (80.0-94.0); Mean Platelet Volume 10.5 fL (7.4-10.4); Nucleated Red Blood Cells % 0 % (-); Platelet Count 115 10^3/uL (130-400); Red Blood Cell Count 4.03 10^6/uL (4.70-6.10); White Blood Cell Count 10.4 10^3/uL (4.8-10.8)
[2024-09-29 05:13] LABS: ALT (SGPT) 22 U/L (0-50); AST (SGOT) 38 U/L (17-59); Albumin 3.1 g/dl (3.5-5.0); Alkaline Phosphatase 68 U/L (38-126); Blood Urea Nitrogen 25 mg/dl (9-20); Calcium 7.9 mg/dl (8.4-10.2); Carbon Dioxide 22 mmol/L (22-30); Chloride 81 mmol/L (98-107); Glucose 80 mg/dl (70-99); Magnesium 1.8 mg/dl (1.6-2.3); Potassium 4.7 mmol/L (3.5-5.1); Sodium 113 mmol/L (135-145); Total Bilirubin 0.9 mg/dl (0.2-1.3); Total Protein 5.4 g/dl (6.3-8.2)
--- NOTE | 2024-09-29 05:15 | PTCARENOTE ---
3% NaCl gtt turned back on for Na of 113, ICU COMPOSITION FLOOR SETTER Garcia notified.
[2024-09-29] MEDS: UNASYN IV ×3 (05:19→18:01)
[2024-09-29 05:25] LABS: Estimated Creatinine Clearance 55 ml/min; eGFR > 60.00
[2024-09-29] MEDS: MIRALAX TUBE (07:18)
[2024-09-29] MEDS: KEPPRA 500 MG IV (07:36)
[2024-09-29] MEDS: THIAMINE INJECTION 200 MG IV ×2 (07:36→15:36)
--- NOTE | 2024-09-29 07:44 | W.PN.INTV ---
Today's Communication / Plan
Recommendations
3% saline
Convert to normal saline
Follow serum sodium closely
Continue antibiotics
Follow radiographically
Not a spontaneous breathing trial candidate yet
CT head noted-no acute intracranial abnormalities
Follow neurologic status closely
Assessment
-
59-year-old non-smoking incarcerated male with a history of hypertension and psychiatric disorder presented after seizure with mental status changes found to have severe hyponatremia given 3% saline-senior assistant manager consulted for severe hyponatremia,
seizures, critical care management 09/28/2024.
Severe hyponatremia with subsequent seizures on psychiatric medications-serum sodium 115
Status post seizure-provoked from hyponatremia
Metabolic encephalopathy
Hypothermia
Aspiration-possible pneumonia related to it-CT chest with mild secretions right side of the trachea layering dependent portion right mainstem bronchus and moderate secretions bronchus intermedius
Hypertensive emergency-blood pressure 220/133
Lactic acidosis
Right hemidiaphragm elevation-mild
Conditions present prior to admission:
Hypertension.
Psychiatric [id number]-EWK-sy Abilify, Seroquel
Polysubstance abuse
Incarcerated.
Plan
Patient remains critically ill on a ventilator and pressors
Patient intubated-ventilator settings reviewed
Pulmonary airway pressures reviewed
Follow ABG
Adjust ventilator-decrease minute ventilation
Spontaneous breathing trial once neurologic status improves
Follow radiographically
VAP prevention protocol
Nebulizers if needed-currently not bronchospastic
Chest x-ray 09/29/2024-no obvious infiltrates yet
Follow serum sodium level closely
3% saline-cautious administration
Goal correction 4-6 mEq/liter in the first 24 hours
Monitor neurologic status closely-rapid correction can rarely leads to osmotic demyelination syndrome
Nephrology evaluation ongoing-correspondence reviewed
Diuretics and potential use of Samsca per nephrology
TSH
Cortisol
Check urine osmolarity and sodium
Neurology evaluation-correspondence reviewed
Thiamine initiated
Brain MRI with gadolinium pending
EEG 09/28/2024 without obvious seizure activity
Repeat EEG 09/29/[address] head 09/29/2024-no acute intracranial abnormalities
Keppra provided
Ativan as needed
Cultures reviewed
Empiric antibiotics-Unasyn initiated
Monitor blood pressure closely
Antihypertensives per nephrology
Nicardipine if needed
Now requiring pressors-wean norepinephrine as needed
DVT prophylaxis recommended
GI prophylaxis-hypotensive on the ventilator-pantoprazole
Nutrition-nasogastric feedings to begin 09/29/2024
Bedside range of motion
Critical care statement: A total of 45 minutes of critical care time was provided for this patient today. This includes management of unstable vital signs, evaluation of the patient at bedside, reviewing the patient's pertinent medical records
including radiographs, ventilator management, sepsis management, pressor management, microbiology, laboratory evaluations, and discussion with primary team, consultants, pharmacy, charge nurse, critical care nursing, and respiratory therapy.
Diagnostic data:
Chest x-ray 09/28/2024-mild right to left mediastinal shift, moderate elevation right hemidiaphragm
CT head 09/28/2024-no acute intracranial hemorrhage or transcortical infarct, moderate white matter leukoaraiosis in the right parietal lobe
CT head neck angiogram 09/28/2024-acute airway aspiration, no evidence for vertebral artery occlusion or dissection, no evidence for large vessel intracranial stenosis or occlusion
Subjective Dataa
Subjective Data
Date of Service:
Date of Service: September 29, 2024
Chief Complaint: Long Term Acute Care Registered Nurse Follow Up, Pulmonary Follow Up and Vent Management Follow Up
Subjective:
Patient is sedated on a ventilator and review of systems was unobtainable, mild amount of secretions,
Review of Systems
General: Other (Per HPI)
Objective Data
Data Reviewed
Vital Signs / I&O / Oxygen:
Vital Signs
Temp Pulse Resp BP Pulse Ox
97.2 F 59 18 105/72 100
09/29/24 04:00 09/29/24 06:15 09/29/24 06:15 09/29/24 04:00 09/29/24 06:15
Intake and Output
09/28/24 09/29/24 09/30/24
06:59 06:59 06:59
Intake Total 1742.2 / 1742.2
Output Total 1761.0 / 1761.0
Balance -18.8 / -18.8
SaO2 [A/C] 100
SaO2 100
Nasal Cannula flow liters per 6
minute
Physical Exam
General: Respiratory Distress (n) and Comfortable
HEENT: Normocephalic, Anicteric and Moist Mucous Membranes
Cardiovascular: Regular Rhythm and Murmur
Respiratory: Wheeze (n), Crackles, Rhonchi, Non-Labored Respirations, Accessory Resp Muscle Use (n) and Stridor (n)
GI: Soft, Non Distended and Non Tender
Neurology: Unresponsive (Sedated on a ventilator)
Skin: Warm, Good Color, Cyanosis (n), Jaundice and Rash (n)
Labs/Micro/Reports
Lab Data
09/29/24 04:23
Laboratory Results
09/28/24 09/28/24 09/28/24
07:57 16:05 16:38
PT 14.3
INR 1.08
APTT 29.3
pH Cancelled 7.43
pCO2 Cancelled 37
pO2 Cancelled 281 H
HCO3 Cancelled 24.6
O2 Delivery Level Cancelled Not Reportable
09/29/24
04:23
PT
INR
APTT
pH 7.48 H
pCO2 31 L
pO2 203 H
HCO3 23.1
O2 Delivery Level
Microbiology
09/28/24 10:12 Nasal Swab Influenza Types A & B (MARY ALICE) - Final
Negative for Influenza A & B, NAAT
Negative results must be combined with clinical observations
and patient history.
Nucleic Acid Amplification test (NAAT)performed on the
[employer] platform.
[2024-09-29 07:53] LABS: Creatine Phosphokinase 298 U/L (55-170)
--- NOTE | 2024-09-29 08:16 | PTCARENOTE ---
Received pt @ change of shift; intubated/sedated w b/l soft limb and 4 rails restraints- see flow sheet. Upon assessment, pt. does not open eyes spont or follow commands. R pupil pinpoint and L pupil 3mm, both sluggishly reactive.
Weak/inconsistent cough/gag reflex; corneal reflex present. Neuro MD, Dr. Rice, made aware of above findings. Further orders received; 20 min EEG in progress @ this time and plan for Head CT after EEG completion. Prop/levo/3 % saline infusing
via R DL PICC- see MAR/flow sheet [facility] guards x2 present @ bedside. Safe environment maintained.
[2024-09-29 08:21] LABS: Blood Urea Nitrogen 26 mg/dl (9-20); Calcium 7.7 mg/dl (8.4-10.2); Carbon Dioxide 23 mmol/L (22-30); Chloride 83 mmol/L (98-107); Glucose 77 mg/dl (70-99); Potassium 4.5 mmol/L (3.5-5.1); Sodium 114 mmol/L (135-145)
--- NOTE | 2024-09-29 08:21 | W.PN.HOSP.TC ---
Addendum entered and electronically signed by Kenneth Nguyen MD 09/29/24 12:17:
#Zen
with hyponatremia -mgmt as per nephro
pressure support
Original Note:
Today's Communication/Plan
-
see PN
Assessment / Plan
Assessment / Plan
59yo M with HTN, psychiatric d/o, incarcerated in [facility] brought 2/2 significant sedation, poor responsiveness and seizures with tongue biting. Found severe hyponatremia.
A/P
#Hyponatremia, severe with seizures
most likely 2/2 psychiatric meds - hold
3%NS and follow BMP q4h
Nephrology follow up: target 4-6mml/L improvement over 24h, cont q3h BMP
Keppra loaded in ED - will continue
Urine NA, Cr, Osm, Uric acid, UA
seizure precautions
Neprhology consult
#Acute hypoxic respiratory failure
2/2 significant lethargy with hyponatremia
Intubated on 09/28/24
[employer]er [employer] Head for vent mgmt and sedation mgmt
#Acute metabolic encephalopathy
significant sedation
most likely post-ictal abd severe hyponatremia
CT head without acute hemorrhage or stroke on admisiion
MRI brain
neurology
Keppra/dilantin
EEG with generalized slowness
Ativam PRN, Propofol drip while intubated for seiszures
CTA head without LVO or carotid stenosis
UDS Neg
B12, folate WNL
started thiamine with Wernicke protocol pedning B1 level
#Hypothermia - concern for brain stem damage with hyponatremia
#Aspiration, cannot r/o early pneumonia
With no hypoglycemia and no hypotension - unlikely mixedema coma or severe adrenal insufficiency. Complete w/u with TSH and Cortisol
2/2 seizures
Unasyn
Warming blanket
TSH and cortisol WNL
#mild thrombocytopenia
unclear reason, might be reactive. No heparin product given on admission
#Mild R to L mediastinal shift
without signs of pneumothorax on XR
#Psychiatric d/o
hold meds
Psych consult for further mgmt when patient more awake
#Essential HTN with HTN emergency on admission
labetalol PRN
DVT ppx SCDs (with stroke w//U)
Full code
I have spent at least 58min of critical care time reviewing chart, test results, communication with cosnultants and direct patient care
Anticipated Discharge: > 48 hours
Subjective/Interval History
-
Date of Service: September 29, 2024
Objective Data
-
Labs:
Laboratory Results
09/28/24 09/28/24 09/28/24
21:09 22:28 22:35
WBC
Hgb
Hct
Plt Count
HCO3
Sodium Cancelled Cancelled 111 L*
Potassium Cancelled Cancelled 4.9
Chloride Cancelled Cancelled 78 L
Carbon Dioxide Cancelled Cancelled 24
BUN Cancelled Cancelled 23 H
Creatinine Cancelled Cancelled 1.2
Glucose Cancelled Cancelled 85
Calcium Cancelled Cancelled 7.8 L
Total Bilirubin
AST
ALT
Alkaline Phosphatase
09/29/24 09/29/24 09/29/24
01:33 04:23 04:23
WBC 10.4
Hgb 11.7 L
Hct 32.1 L
Plt Count 115 L
HCO3 23.1
Sodium 114 L* 113 L* Cancelled
Potassium 4.8 4.7
Chloride 81 L
Carbon Dioxide 24
BUN 24 H
Creatinine 1.4 H
Glucose 81
Calcium 7.6 L
Total Bilirubin
AST
ALT
Alkaline Phosphatase
01/14/25 01/14/25 01/14/25
04:23 04:23 04:23
WBC
Hgb
Hct
Plt Count
HCO3
Sodium
Potassium Cancelled
Chloride 81 L Cancelled
Carbon Dioxide 22 Cancelled
BUN 25 H
Creatinine
Glucose
Calcium
Total Bilirubin
AST
ALT
Alkaline Phosphatase
09/29/24 09/29/24 09/29/24
04:23 04:23 04:23
WBC
Hgb
Hct
Plt Count
HCO3
Sodium
Potassium
Chloride
Carbon Dioxide
BUN Cancelled
Creatinine 1.3 Cancelled
Glucose 80 Cancelled
Calcium 7.9 L
Total Bilirubin
AST
ALT
Alkaline Phosphatase
09/29/24 09/29/24 09/29/24
04:23 07:32 10:30
WBC
Hgb
Hct
Plt Count
HCO3
Sodium Pending Pending
Potassium Pending Pending
Chloride Pending Pending
Carbon Dioxide Pending Pending
BUN Pending Pending
Creatinine Pending Pending
Glucose Pending Pending
Calcium Cancelled Pending Pending
Total Bilirubin 0.9
AST 38
ALT 22
Alkaline Phosphatase 68
09/29/24 09/29/24 09/29/24
13:30 16:30 19:30
WBC
Hgb
Hct
Plt Count
HCO3
Sodium Pending Pending Pending
Potassium Pending Pending Pending
Chloride Pending Pending Pending
Carbon Dioxide Pending Pending Pending
BUN Pending Pending Pending
Creatinine Pending Pending Pending
Glucose Pending Pending Pending
Calcium Pending Pending Pending
Total Bilirubin
AST
ALT
Alkaline Phosphatase
09/29/24
22:30
WBC
Hgb
Hct
Plt Count
HCO3
Sodium Pending
Potassium Pending
Chloride Pending
Carbon Dioxide Pending
BUN Pending
Creatinine Pending
Glucose Pending
Calcium Pending
Total Bilirubin
AST
ALT
Alkaline Phosphatase
Vital Signs:
Vital Signs
Temp Pulse Resp BP Pulse Ox
96.8 F L 59 18 105/72 100
09/29/24 08:01 09/29/24 06:15 09/29/24 06:15 09/29/24 04:00 09/29/24 08:16
I&O
09/28/24 09/29/24 09/30/24
06:59 06:59 06:59
Intake Total 1742.2 / 1781.7 82.8 / 82.8
Output Total 1761.0 / 1911.0 180 / 180
Balance -18.8 / -129.3 -97.2 / -97.2
Review of Systems
-
Unable to obtain full review of systems at this time due to: Patient Intubation
Physical Exam
-
General: Intubated
HEENT: Other (Anisocoria)
Respiratory: Clear to Auscultation
Cardiac: Regular Rhythm
GI: Soft and Nondistended
Musculoskeletal: No Clubbing, No Cyanosis and No Edema
Neuro: Sedated
Psych: Calm
--- NOTE | 2024-09-29 10:00 | PTCARENOTE ---
Pt. transported via bed to CT for Head CT and back to rm [id number], no events on transport. Neurology, Dr. Rice to bedside post CT scan. Pupils pinpoint/sluggish upon neuro assessment. Plan to keep on propofol 24 hour from time of initiation. D/T
neurology plan, no SAT/SBT initiated. Complete hygiene provided and pt. repositioned per protocol.
--- NOTE | 2024-09-29 10:00 | EEGC.RPT ---
Continuous EEG Report
Recording
End Date of Data Reviewed: 09/29/24
Done with Video Recording: Yes
Electrocardiogram: Unremarkable
Report
TECHNICAL REMARKS:��This is a technically satisfactory eighteen channel record employing 21 disc electrodes applied according to a measured international 10-20 electrode placement system.��There were no significant technical difficulties.��The study
was done on a siXis System.
�
CLINICAL HISTORY: This is a�59-year-old man with severe hyponatremia and recurrent seizures. This study was requested to look for epileptiform abnormalities.
STUDY DURATION:� 22 min,�35 secs
MEDICATIONS: Keppra, Propofol, Phenytoin
REPORT: �At the onset of the EEG, the patient is comatose. The background activity consists of 12-14 Hz, impersistent, posteriorly dominant, moderate amplitude, symmetric, and rhythmic activity. Continuous generalized, 2-3 Hz slowing with
intermittent generalized attenuation lasting from 1 to 2 seconds is present.� Stepwise intermittent photic stimulation(1-31 hz) does not induce additional abnormalities. Excessive predominantly central beta activity is present.� No epileptiform
activity is seen.
�
IMPRESSION: �This is an abnormal EEG recorded in comatose state due to severe generalized slowing and excessive beta activity indicative of severe diffuse cerebral dysfunction, nonspecific in terms of etiology. No epileptiform abnormalities are
seen.
--- NOTE | 2024-09-29 10:08 | W.PN.NEURO.1 ---
Today's Communication / Plan
-
.
Subjective/Objective
Subjective Data
Neurology follow-up note
24-hour events: Patient had generalized tonic-clonic seizure with associated desaturation at 1233 pm yesterday. Received 2 mg of IV Ativan at 1240 pm and was loaded with fosphenytoin. Mr. Zamorano was intubated for airway protection and started
on propofol.
Repeat EEG *09/29/2024)-generalized slowing, excessive beta activity and intermittent attenuation with no epileptiform abnormalities.
The patient continues to be hypothermic, hyponatremic requiring norepinephrine.
CT head without contrast (09/29/2023)�no acute abnormalities.
Labs: CK2 298, sodium�114,, normal TFTs.
PMH: polysubstance addiction, HTN, psychotic DO, NOS
PSH: Unknown
SH: Active inmate at [facility]
FH: Unknown
All: Haloperidol
ROS: unable
General: Intubated, sedated
Cardio: Regular rate and rhythm. Extremities are without cyanosis or edema.
Neuro:
Mental Status: Comatose
Cranial Nerves: Orthophoric primary gaze, pupils 2 mm, nonreactive. Corneals�positive bilaterally. No facial weakness.
Motor: Flaccid quadriplegia.
Reflexes: 0/2, plantar response�mute
Sensory: Does not l grimace to noxious stimuli
Coordination: No tremors myoclonic movements
Gait: deferred
Assessment and Plan:
I. Likely provoked seizures from severe hyponatremia
II. Multifactorial encephalopathy (metabolic, toxic)
III. Iatrogenic SIADH
-Aspiration and seizure precautions.
-Continue Keppra 750 mg every 12 hours and phenytoin 100 mg every 8 hours
-Please check corrected Dilantin level
-Continue thiamine
-Brain MRI wo iraida when able
-DVT prophylaxis.
I personally reviewed all radiology and labs along with past medical records pertinent to current medical problems. Total time spent in patient care is 40minutes.
Thank you for allowing us to participate in the care of this patient. We will continue to follow. Please do not hesitate to contact us with any questions or concerns.
Objective Data
Vital Signs
Temp Pulse Resp BP Pulse Ox
36.0 C L 59 18 105/72 100
09/29/24 08:01 09/29/24 06:15 09/29/24 06:15 09/29/24 04:00 09/29/24 09:40
Lab Results
09/29/24 04:23
PT 14.3 Sec (11.4-14.6) 09/28/24 07:57
INR 1.08 09/28/24 07:57
APTT 29.3 Sec (23.4-35.0) 09/28/24 07:57
Sodium 114 mmol/L (135-145) L* 09/29/24 07:32
Potassium 4.5 mmol/L (3.5-5.1) 09/29/24 07:32
BUN 26 mg/dl (9-20) H 09/29/24 07:32
Glucose 77 mg/dl (70-99) 09/29/24 07:32
Calcium 7.7 mg/dl (8.4-10.2) L 09/29/24 07:32
Phosphorus 2.6 mg/dl (2.5-4.5) 09/28/24 13:03
Vitamin B12 556 pg/ml (239-931) 09/28/24 07:57
Ur Buprenorphine Cancelled 09/28/24 13:22
Ur Buprenorphine Negative (Negative) 09/28/24 13:22
Patient Allergies
haloperidol [From Haldol] Allergy (Verified 09/28/24 07:45)
Unknown
Vital Signs and Labs
-
Vital Signs and Labs:
Vital Signs
Temp Pulse Resp BP Pulse Ox
36.0 C L 59 18 105/72 100
09/29/24 08:01 09/29/24 06:15 09/29/24 06:15 09/29/24 04:00 09/29/24 09:40
Lab Results
09/29/24 04:23
PT 14.3 Sec (11.4-14.6) 09/28/24 07:57
INR 1.08 09/28/24 07:57
APTT 29.3 Sec (23.4-35.0) 09/28/24 07:57
Sodium 114 mmol/L (135-145) L* 09/29/24 07:32
Potassium 4.5 mmol/L (3.5-5.1) 09/29/24 07:32
BUN 26 mg/dl (9-20) H 09/29/24 07:32
Glucose 77 mg/dl (70-99) 09/29/24 07:32
Calcium 7.7 mg/dl (8.4-10.2) L 09/29/24 07:32
Phosphorus 2.6 mg/dl (2.5-4.5) 09/28/24 13:03
Vitamin B12 556 pg/ml (239-931) 09/28/24 07:57
Ur Buprenorphine Cancelled 09/28/24 13:22
Ur Buprenorphine Negative (Negative) 09/28/24 13:22
Medications
-
Medications:
Generic Name Dose Route Start Last Admin
Trade Name Freq PRN Reason Stop Dose Admin
Acetaminophen 650 mg 09/28/24 11:58
Acetaminophen 325 Mg Tablet PO 10/26/24 11:57
Q4HPRN PRN
mild pain/OLIVEROS/temp> 100.4F
Atropine Sulfate 0 drop 09/28/24 17:08 09/29/24 04:18
Atropine Sulfate 1% (Ophthalmic Drops) Droptainer SL 10/26/24 17:07 1 drop
Q4HPRN PRN Administration
excess oral secretions
Bisacodyl 10 mg 09/28/24 11:58
Bisacodyl 10 Mg Rectal Suppository RECTAL 10/26/24 11:57
[id number] PRN
constipation
Fentanyl Citrate 50 mcg 09/28/24 15:57 09/29/24 00:22
Fentanyl (50 Mcg/Ml) 100 Mcg/2 Ml Ampul IV 10/12/24 15:56 50 mcg
[id number] PRN Administration
see protocol
Protocol
Ampicillin Sodium/Sulbactam 120 mls @ 240 mls/hr 09/28/24 12:00 09/29/24 05:19
Sodium 3 gm/ Sodium Chloride IV 120 mls
Q6H LIZZETTE Administration
Fentanyl Citrate 1,000 mcg in 100 mls @ 0 mls/hr 09/28/24 16:00
Sublimaze IV
PER PROTOCOL LIZZETTE
Protocol
Per Protocol
Propofol 1,000,000 mcg in 100 mls @ 0 mls/hr 09/28/24 16:00 09/29/24 08:48
Diprivan IV 100 mls
PER PROTOCOL LIZZETTE Administration
Protocol
Per Protocol
Norepinephrine Bitartrate 8 mg 258 mls @ 0 mls/hr 09/28/24 20:00 09/28/24 20:13
/ Sodium Chloride IV 258 mls
PER PROTOCOL LIZZETTE Administration
Protocol
Per Protocol
Labetalol HCl 10 mg 09/28/24 10:19
Labetalol Hcl 5 Mg/1 Ml (20 Mg/4 Ml) Injection IV 10/26/24 10:18
Q6HPRN PRN
SBP>180 or DBP>105
Levetiracetam 750 mg 09/29/24 10:00
Levetiracetam (100 Mg/Ml) 500 Mg/5 Ml Vial IV 10/26/24 09:59
Q12 LIZZETTE
Lorazepam 2 mg 09/28/24 12:35 09/28/24 12:40
Lorazepam 2 Mg/Ml Vial IV 10/26/24 12:34 2 mg
Q4HPRN PRN Administration
seizures
Ondansetron HCl 4 mg 09/28/24 11:58
Ondansetron 4 Mg/2 Ml Vial IV 10/26/24 11:57
Q8HPRN PRN
nausea and vomiting
Phenytoin Sodium 100 mg 09/29/24 10:00
Phenytoin (50 Mg/ Ml) 100 Mg/2 Ml Vial IV 10/27/24 09:59
TID LIZZETTE
Polyethylene Glycol 17 grams 09/28/24 11:58
Polyethylene Glycol Powder 17 Grams Packet PO 10/26/24 11:57
DAILYPRN PRN
constipation
Polyethylene Glycol 17 grams 09/29/24 08:00 09/29/24 07:18
Polyethylene Glycol Powder 17 Grams Packet TUBE 10/27/24 07:59 Not Given
DAILY LIZZETTE
Senna/Docusate Sodium 1 tablet 09/28/24 11:58
Docusate W/Senna (Aurea-Colace) Tablet PO 10/26/24 11:57
BIDPRN PRN
constipation
Sodium Chloride 0 flush 09/28/24 13:00
Sodium Chloride 0.9% (Flush) Syringe IV 10/26/24 12:59
PER PROTOCOL LIZZETTE
Sodium Chloride 0 ml 09/28/24 13:00
Sodium Chloride 0.9% (Preservative Free) 10 Ml Vial IV 10/26/24 12:59
PRN PRN
IV Lorazepam dilution
Protocol
Thiamine HCl 200 mg 09/28/24 16:00 09/29/24 07:36
Thiamine (100 Mg/Ml) 2 Ml Vial IV 09/30/24 08:01 200 mg
Q8 LIZZETTE Administration
Home Medications
-
Home Medications
acetaminophen 325 mg tablet 325 mg PO BIDPRN PRN mild pain 09/28/24
amlodipine 10 mg tablet (Norvasc) 10 mg PO HS 09/28/24
aripiprazole 300 mg suspension, extended rel. intramuscular syringe (Maria Elena Cano) 300 mg IM QMONTH 09/28/24
benztropine 0.5 mg tablet 0.5 mg PO 09/28/24
lisinopril 40 mg tablet 40 mg PO 09/28/24
quetiapine 100 mg tablet (Seroquel) 100 mg PO 09/28/24
therapeutic multivitamin 1 tab PO 09/28/24
[2024-09-29 10:25] LABS: Estimated Creatinine Clearance 47 ml/min; Magnesium 1.8 mg/dl (1.6-2.3); Phosphorus 3.7 mg/dl (2.5-4.5); eGFR 52.97
--- NOTE | 2024-09-29 10:56 | W.PN.NEPH.PH ---
Today's Communication / Plan
-
Continue with 3% for now pending blood work
Assessment/Plan
-
59-year-old male presents emergency department due to altered mental status. He was last seen last night. Upon arrival he had a seizure In the emergency room. He is arriving from the [facility]. Patient is verbally unresponsive does respond to
tactile stimuli as he is likely postictal. Unable to get history secondary to patient's mental status although he is on multiple antipsychotic medications including Seroquel and Abilify
Found to have a sodium of 115 renal consult for sodium of 115
Impression:
Hyponatremia 115 decreased down to 109 on admission
Status post seizure
Psychiatric history
Hypothermic
Plan:
Patient intubated since last night
Longoria catheter.
Nonoliguric on 3% saline
Every 4 BMP.
Strict monitoring of urine output to avoid overcorrection greater than 4-6 mill equivalents in first 24 hours.
. Current sodium 114 correcting appropriately
Urine sodium less than 18 with urine osm 196 in the setting of hypotension and hypothermia and MARGARETTE now with a creatinine of 1.5
Continue 3% for now likely switch over to normal saline at a more aggressive rate pending next set of blood work
Total Time Spent with Patient (in minutes): 31
-
-
Date of Service: September 29, 2024
CC / HPI / ROS
-
Chief Complaint:
Altered mental status and hypotension presenting with
History of Present Illness:
Hyponatremia at 115 on admission decreased down to 109 requiring mechanical ventilation mild pressor support and hypothermic
Review of Systems:
Nonoliguric
Unobtainable
Labs
-
Labs:
WBC 10.4 10^3/uL (4.8-10.8) 09/29/24 04:23
RBC 4.03 10^6/uL (4.70-6.10) L 09/29/24 04:23
Hgb 11.7 g/dL (13.0-18.0) L 09/29/24 04:23
Hct 32.1 % (39.0-52.0) L 09/29/24 04:23
Plt Count 115 10^3/uL (130-400) L 09/29/24 04:23
eGFR 52.97 09/29/24 07:32
Phosphorus 3.7 mg/dl (2.5-4.5) 09/29/24 07:32
Albumin 3.1 g/dl (3.5-5.0) L 09/29/24 04:23
Physical Exam
-
Vital Signs:
Vital Signs
Temp Pulse Resp BP Pulse Ox
95.3 F L 59 18 105/72 100
09/29/24 10:00 09/29/24 06:15 09/29/24 06:15 09/29/24 04:00 09/29/24 09:40
Respiratory:: Bilateral: Coarse
Abdomen:: Soft
Bowel Sounds:: Normal
Extremity Edema:: None: Bilateral:
Longoria Catheter: Yes
[2024-09-29] MEDS: DILANTIN 100 MG IV ×3 (11:10→21:06)
--- NOTE | 2024-09-29 11:38 | W.PN.INTV ---
Documented by User: Karel Henderson MD, Resident 09/29/24 12:15
Today's Communication / Plan
Recommendations
Start tube feeding
Keep monitoring BMP
Aspiration and seizure precautions
Assessment
-
Impression
Patient is a 59-year-old male coming from [place],with past medical history of polysubstance use disorder, essential hypertension, and psychiatric disorder who was brought to the emergency after seizures associated with tongue bite and change in
mental status.He did not respond to naloxone in ER, and his blood sugar level was 70. His workup showed severe hyponatremia of 115, received 3% hypertonic saline boluses in the ER, sodium levels around 113-115 since admission despite multiple
boluses of hypertonic saline.Patient unconscious and unable to provide any history. Utility Plant Operative consultation for severe hyponatremia, seizures and declining mental status on 09/28/2024
Assessment
Severe symptomatic hyponatremia of 115, with seizures associated with tongue bite
Hypothermia, Temperature 94.4
Metabolic encephalopathy secondary to hyponatremia/postictal phase/hypothermia
Aspiration event -CT chest with mild secretions right side of the trachea layering dependent portion right mainstem bronchus and moderate secretions bronchus intermedius
Hypertensive emergency with evident endorgan damage
Conditions present prior to admission:
Essential hypertension.
Unknown psychiatric disorder-on Abilify and Seroquel
Polysubstance abuse
Incarcerated.
Plan
Severe symptomatic hyponatremia, resulting in seizures associated with tongue bite
Patient received multiple 3% hypertonic saline boluses
Sodium levels around 113,on admission it dropped down to 109
On target,4-6meq rise in first 24hrs
BMP every 4hrs
Switch to normal saline following fresh BMP as per Nephro
Urine sodium less than 18 with urine osm 196 in the setting of hypotension and hypothermia and MARGARETTE now with a creatinine of 1.5
Nephrology consult appreciated-following the patient
Patient needed intubation last night,as per Abgs patient's arterial blood gas show ph of 7.48 with carbon dioxide of 31,vent settings changed to a lower RR of 14
Tracheal aspirate shows Many WBC
Rare Squamous Epithelial Cells
Few Mixed Bacterial Morphotypes
Hypothermia
TSH and serum cortisol within normal limits
Total leukocyte count within normal limits
Hypothermia with hyponatremia and fluctuating blood pressures,altered mental status-brainstem damage?
Empiric Unasyn started
Blood cultures preliminary report shows no growth in 24hours
Seizures
No prior history of seizures
Likely provoked by hyponatremia
CT scan of head-mild white matter leukoaraiosis
CTA neck-bilateral severe tortuousity of internal carotid arteries
Brain MRI with gadolinium pending-when able
EEG 09/28-an abnormal EEG recorded in altered mental status due to a moderate-to severe generalized slowing. This finding indicates diffuse cerebral dysfunction, nonspecific in terms of etiology.�
09/29-generalized slowing, excessive beta activity and intermittent attenuation with no epileptiform abnormalities.
CK2 298, sodium�114,B12, folate WNL,UDS Neg
Neuro consult apprec-Aspiration and seizure precautions.
-Continue Keppra 750 mg every 12 hours and phenytoin 100 mg every 8 hours
Hypertensive emergency
Blood pressure is running high with a peak of 225/113 on presentation
On labetalol PRN
Patient had a drop in blood pressure yesterday
Continue to monitor blood pressure closely
DVT prophylaxis sequential compression devices
Plan to do tube feeding and have a envelope machine operator consult
No prior history of cardiac disease, EKG done in ER shows QT interval of 448 ms
On Ventilator,with vent settings,rate 14,Vt 450,peep5,Fio2 40
Respiratory rate decreased on vent for alkalotic ph on abgs
Full code
Diagnostic data:
Chest x-ray 09/28/2024-mild right to left mediastinal shift, moderate elevation right hemidiaphragm
CT head 09/28/2024-no acute intracranial hemorrhage or transcortical infarct, moderate white matter leukoaraiosis in the right parietal lobe
CT head neck angiogram 09/28/2024-acute airway aspiration, no evidence for vertebral artery occlusion or dissection, no evidence for large vessel intracranial stenosis or occlusion
Subjective Dataa
Subjective Data
Date of Service:
Date of Service: September 29, 2024
Chief Complaint: [employer] Operative Follow Up and Pulmonary Follow Up
Subjective:
Patient is sedated and on ventilator,still hyponatremia,had hematuria with clots yesterday possibly due to foleys,post manipulation drained 1 liter of urine
Review of Systems
General: Unobtainable - Sedation
Objective Data
Data Reviewed
Vital Signs / I&O / Oxygen:
Vital Signs
Temp Pulse Resp BP Pulse Ox
95.7 F L 59 18 105/72 100
09/29/24 11:00 09/29/24 06:15 09/29/24 06:15 09/29/24 04:00 09/29/24 11:10
Intake and Output
09/28/24 09/29/24 09/30/24
06:59 06:59 06:59
Intake Total 1742.2 / 1781.7 216.4 / 216.4
Output Total 1761.0 / 1911.0 1150 / 1150
Balance -18.8 / -129.3 -933.6 / -933.6
SaO2 [A/C] 100
SaO2 100
Nasal Cannula flow liters per 6
minute
Physical Exam
HEENT: Other (Pinpoint pupils) and Other (On ventilator,tongue bite)
Cardiovascular: S1-S2 and Regular Rhythm
Respiratory: Clear, ET Tube (On Ventilator,with vent settings,rate 14,Vt 450,peep5,Fio2 40) and Other
GI: Soft, Non Distended and Normal Bowel Sounds
Neurology: Other (sedated)
Skin: Warm and Dry
Labs/Micro/Reports
Lab Data
09/29/24 04:23
Laboratory Results
09/28/24 09/28/24 09/29/24
16:05 16:38 04:23
pH Cancelled 7.43 7.48 H
pCO2 Cancelled 37 31 L
pO2 Cancelled 281 H 203 H
HCO3 Cancelled 24.6 23.1
O2 Delivery Level Cancelled Not Reportable
Microbiology
09/29/24 08:10 Tracheal Aspirate Gram Stain - Preliminary
09/28/24 09:10 Blood/Venous Blood Culture - Preliminary
No Growth in 24 hours- Final report to follow
09/28/24 09:10 Blood/Venous Blood Culture - Preliminary
No Growth in 24 hours- Final report to follow
09/28/24 10:12 Nasal Swab Influenza Types A & B (MARY ALICE) - Final
Negative for Influenza A & B, NAAT
Negative results must be combined with clinical observations
and patient history.
Nucleic Acid Amplification test (NAAT)performed on the
[employer] platform.

Documented by User: Alin Dobbins MD 09/30/24 07:39
Assessment
-
Impression
Patient is a 59-year-old male coming from alf,with past medical history of polysubstance use disorder, essential hypertension, and psychiatric disorder who was brought to the emergency after seizures associated with tongue bite and change in
mental status.He did not respond to naloxone in ER, and his blood sugar level was 70. His workup showed severe hyponatremia of 115, received 3% hypertonic saline boluses in the ER, sodium levels around 113-115 since admission despite multiple
boluses of hypertonic saline.Patient unconscious and unable to provide any history. [employer] consultation for severe hyponatremia, seizures and declining mental status on 09/28/2024
Assessment
Severe symptomatic hyponatremia of 115, with seizures associated with tongue bite
Hypothermia, Temperature 94.4
Metabolic encephalopathy secondary to hyponatremia/postictal phase/hypothermia
Aspiration event -CT chest with mild secretions right side of the trachea layering dependent portion right mainstem bronchus and moderate secretions bronchus intermedius
Hypertensive emergency with evident endorgan damage
Conditions present prior to admission:
Essential hypertension.
Unknown psychiatric disorder-on Abilify and Seroquel
Polysubstance abuse
Incarcerated.
Plan
Severe symptomatic hyponatremia, resulting in seizures associated with tongue bite
Patient received multiple 3% hypertonic saline boluses
Sodium levels around 113,on admission it dropped down to 109
On target,4-6meq rise in first 24hrs
BMP every 4hrs
Switch to normal saline following fresh BMP as per Nephro
Urine sodium less than 18 with urine osm 196 in the setting of hypotension and hypothermia and MARGARETTE now with a creatinine of 1.5
Nephrology consult appreciated-following the patient
Patient needed intubation last night,as per Abgs patient's arterial blood gas show ph of 7.48 with carbon dioxide of 31,vent settings changed to a lower RR of 14
Tracheal aspirate shows Many WBC
Rare Squamous Epithelial Cells
Few Mixed Bacterial Morphotypes
Hypothermia
TSH and serum cortisol within normal limits
Total leukocyte count within normal limits
Hypothermia with hyponatremia and fluctuating blood pressures,altered mental status-brainstem damage?
Empiric Unasyn started
Blood cultures preliminary report shows no growth in 24hours
Seizures
No prior history of seizures
Likely provoked by hyponatremia
CT scan of head-mild white matter leukoaraiosis
CTA neck-bilateral severe tortuousity of internal carotid arteries
Brain MRI with gadolinium pending-when able
EEG 09/28-an abnormal EEG recorded in altered mental status due to a moderate-to severe generalized slowing. This finding indicates diffuse cerebral dysfunction, nonspecific in terms of etiology.�
09/29-generalized slowing, excessive beta activity and intermittent attenuation with no epileptiform abnormalities.
CK2 298, sodium�114,B12, folate WNL,UDS Neg
Neuro consult apprec-Aspiration and seizure precautions.
-Continue Keppra 750 mg every 12 hours and phenytoin 100 mg every 8 hours
Hypertensive emergency
Blood pressure is running high with a peak of 225/113 on presentation
On labetalol PRN
Patient had a drop in blood pressure yesterday
Continue to monitor blood pressure closely
DVT prophylaxis sequential compression devices
Plan to do tube feeding and have a envelope machine operator consult
No prior history of cardiac disease, EKG done in ER shows QT interval of 448 ms
On Ventilator,with vent settings,rate 14,Vt 450,peep5,Fio2 40
Respiratory rate decreased on vent for alkalotic ph on abgs
Full code
I reviewed this patients case independently and in conjunction with the resident. I personally examined the patient. Patient's complex medical history, laboratory evaluations, events over the last 24 hours, radiographs, microbiological data were
all personally reviewed.
Agree with documented assessment and plan
Alin Dobbins MD, [facility], [facility]
Diagnostic data:
Chest x-ray 09/28/2024-mild right to left mediastinal shift, moderate elevation right hemidiaphragm
CT head 09/28/2024-no acute intracranial hemorrhage or transcortical infarct, moderate white matter leukoaraiosis in the right parietal lobe
CT head neck angiogram 09/28/2024-acute airway aspiration, no evidence for vertebral artery occlusion or dissection, no evidence for large vessel intracranial stenosis or occlusion
[2024-09-29 11:45] LABS: Dilantin 18.7 ug/ml (10-20)
[2024-09-29 11:55] LABS: Blood Urea Nitrogen 28 mg/dl (9-20); Calcium 7.5 mg/dl (8.4-10.2); Carbon Dioxide 25 mmol/L (22-30); Chloride 85 mmol/L (98-107); Glucose 80 mg/dl (70-99); Potassium 4.3 mmol/L (3.5-5.1); Sodium 117 mmol/L (135-145)
[2024-09-29] MEDS: NSS (PRESERVATIVE FREE) 10 ML IV (12:15)
[2024-09-29] MEDS: PROTONIX IV 40 MG IV (12:15)
[2024-09-29] MEDS: NSS 1000 IV (12:15)
--- NOTE | 2024-09-29 12:30 | PTCARENOTE ---
Critical sodium- 117 relayed to Nephrology, Dr. Hartman. 3% saline d/c'd per orders and NSS @ 80mL/hr initiated- see MAR. Next BMP check 1600 per orders.
[2024-09-29 12:38] LABS: Estimated Creatinine Clearance 42 ml/min; eGFR 45.58
--- NOTE | 2024-09-29 12:49 | CM ---
CM following re: discharge planning.
Reviewed pt's chart, met wit pt. Two guards at bedside.
Pt is a 59 year old male, admitted with primary dx of Severe symptomatic hyponatremia of 115, with seizures associated with tongue bite. Pt intubated yesterday, remains intubated, continue supportive care.
Pt is from [facility] and a plan is to return back to [facility] when medically stable.
[facility] nursing report: [phone]
Discharge instructions fax: [phone]
D/C plan: return back to [facility] when medically stable.
[2024-09-29] MEDS: HEPARIN 5000 UNITS SC (15:36)
[2024-09-29 16:24] LABS: Blood Urea Nitrogen 29 mg/dl (9-20); Calcium 7.7 mg/dl (8.4-10.2); Carbon Dioxide 23 mmol/L (22-30); Chloride 88 mmol/L (98-107); Glucose 72 mg/dl (70-99); Potassium 4.2 mmol/L (3.5-5.1); Sodium 119 mmol/L (135-145)
[2024-09-29 16:31] LABS: Estimated Creatinine Clearance 47 ml/min; eGFR 52.97
--- NOTE | 2024-09-29 17:00 | PTCARENOTE ---
Adilene fair inserted and secured @ 65cm; placement confirmed w x-ray. Received further orders from RD to start TF. Osmolite 1.2 @ 20mL/hr w out H20 flush started @ 1430. Critical sodium relayed to Nephrology; remains on NSS @ 80mL/hr. Urine
output increasing, >200mL/hr; urine remains bloody w clots. Remains intubated and sedated on prop/levo gtts- see flow sheets. [facility] guards x2 remains @ bedside. Repositioned per protocol. Safe environment maintained.
[2024-09-29 19:08] LABS: Osmolality Urine 95 mOsm/kg (300-900)
[2024-09-29 19:19] LABS: Urine Sodium < 5 mmol/L (30-90)
[2024-09-29 19:25] LABS: Blood Urea Nitrogen 29 mg/dl (9-20); Calcium 7.9 mg/dl (8.4-10.2); Carbon Dioxide 23 mmol/L (22-30); Chloride 90 mmol/L (98-107); Estimated Creatinine Clearance 44 ml/min; Glucose 68 mg/dl (70-99); Potassium 4.1 mmol/L (3.5-5.1); Sodium 121 mmol/L (135-145); eGFR 49.02
[2024-09-29 19:40] LABS: Osmolality Serum 263 mOsm/kg (275-300)
[2024-09-29] MEDS: DEXTROSE 50% SYRINGE 12.5 GRAMS IV (19:40)
[2024-09-29] MEDS: 0.45%NACL 1000 IV (20:18)
[2024-09-29 20:31] LABS: Glucose - Point of Care 100 mg/dl (70-99)
--- NOTE | 2024-09-29 20:40 | PTCARENOTE ---
Labs collected at 18:58. Na = 121, glucose 68. See flowsheet for further lab results. NSS d/c'd, 1/2 NSS started at 125ml/hr. 1/2amp D50 given, fingerstick glucose 100.
[2024-09-29] MEDS: KEPPRA 750 MG IV (20:45)
[2024-09-29 23:32] LABS: Blood Urea Nitrogen 27 mg/dl (9-20); Calcium 7.7 mg/dl (8.4-10.2); Carbon Dioxide 25 mmol/L (22-30); Chloride 95 mmol/L (98-107); Estimated Creatinine Clearance 44 ml/min; Glucose 86 mg/dl (70-99); Potassium 3.8 mmol/L (3.5-5.1); Sodium 126 mmol/L (135-145); eGFR 49.02
[2024-09-30] VITALS (8 sets, daily range): BP systolic 72–166; BP diastolic 55–88; BMI 26.9
[2024-09-30] MEDS: D5W 1000 IV ×3 (00:10→04:39)
[2024-09-30] MEDS: DDAVP 50.5 MCG IV (00:10)
[2024-09-30] MEDS: ATROPINE SULFATE 1% DROPS 1 DROP SL (00:18)
[2024-09-30] MEDS: THIAMINE INJECTION 200 MG IV ×2 (01:01→09:18)
[2024-09-30] MEDS: HEPARIN 5000 UNITS SC ×4 (01:01→23:28)
[2024-09-30] MEDS: UNASYN IV ×5 (01:01→23:28)
--- NOTE | 2024-09-30 01:26 | PTCARENOTE ---
23:00 Na = 126. Per nephrology and [employer] SPECIALIST, DDAVP and x2L D5W 1000ml/hr. DDAVP given as ordered. 2nd liter D5W infusing now. Levophed titrated off, MAP 65-78.
[2024-09-30 03:36] LABS: Hematocrit 28.5 % (39.0-52.0); Hemoglobin 10.3 g/dL (13.0-18.0); Mean Corp Hgb Conc. 36.1 g/dL (33.0-37.0); Mean Corpuscular Hgb 29.9 pg (27.0-31.0); Mean Corpuscular Volume 82.6 fL (80.0-94.0); Red Blood Cell Count 3.45 10^6/uL (4.70-6.10); Red Cell Dist. Width 13.4 % (11.5-14.5)
[2024-09-30 03:37] LABS: Mean Platelet Volume 10.7 fL (7.4-10.4); Platelet Count 80 10^3/uL (130-400)
[2024-09-30 03:44] LABS: Blood Urea Nitrogen 25 mg/dl (9-20); Calcium 7.4 mg/dl (8.4-10.2); Carbon Dioxide 24 mmol/L (22-30); Chloride 93 mmol/L (98-107); Estimated Creatinine Clearance 47 ml/min; Glucose 92 mg/dl (70-99); Magnesium 2.2 mg/dl (1.6-2.3); Phosphorus 3.2 mg/dl (2.5-4.5); Potassium 3.8 mmol/L (3.5-5.1); Sodium 125 mmol/L (135-145); eGFR 52.97
--- NOTE | 2024-09-30 04:01 | W.PN.UPDATE ---
Update Note
Progress Note Update
09/29/24
1900- RN updated that patient had increased urine output 500cc/hr x 2 hours. Stat labs sent: bmp, serum osmolality, urine osmolality, and urine sodium.
1930- Na 121, results and increased urinary output communicated to Dr. Hartman, school physical therapist. Recommendations received: IVF 1/2 NSS at 125cc/hr and recheck labs in 4 hours.
2340- Labs results, Na 126 and urine output approximately 300cc/hr, communicated to Dr. Hartman, school physical therapist. Recommendations received: DDAVP 2mcg IV and 2L D5W to be given over the next 2 hours. Continue to follow q4H BMP to trend sodium.
09/30/24
0400- Lab results Na, 125 and urine output approximately 100cc/hr, communicated to Dr. Hartman, school physical therapist. Recommendations received: IVF D5W at 75cc/hr.
[2024-09-30] MEDS: DIPRIVAN 100 IV ×2 (04:05→23:24)
[2024-09-30] MEDS: LEVOPHED 250 IV ×2 (05:15→23:42)
--- NOTE | 2024-09-30 07:35 | W.PN.INTV ---
Today's Communication / Plan
Recommendations
Wean FiO2
Spontaneous breathing trial once neurologic status improves
Sedation vacations
Brain MRI when able
Slow sodium correction
Assessment
-
59-year-old non-smoking incarcerated male with a history of hypertension and psychiatric disorder presented after seizure with mental status changes found to have severe hyponatremia given 3% saline-substance abuse prevention coordinator consulted for severe hyponatremia,
seizures, critical care management 09/28/2024.
Severe hyponatremia with subsequent seizures on psychiatric medications-serum sodium 115
Status post seizure-provoked from hyponatremia
Metabolic encephalopathy
Hypothermia
Aspiration-possible pneumonia related to it-CT chest with mild secretions right side of the trachea layering dependent portion right mainstem bronchus and moderate secretions bronchus intermedius
Hypertensive emergency-blood pressure 220/133
Lactic acidosis
Right hemidiaphragm elevation-mild
Conditions present prior to admission:
Hypertension.
Psychiatric psavvtli-XUI-eq Abilify, Seroquel
Polysubstance abuse
Incarcerated.
Plan
Continues to be critically ill on a ventilator, sedated and on pressors
Patient intubated-ventilator settings reviewed
Pulmonary airway pressures reviewed
Monitor ABG
Adjust ventilator-decrease minute ventilation
Spontaneous breathing trial once neurologic status improves
Follow radiographically
VAP prevention protocol
Nebulizers if needed-currently not bronchospastic
Chest x-ray 09/29/2024-no obvious infiltrates yet
Chest x-ray 09/30/2024-no pneumothorax, no new abnormalities
Follow serum sodium level closely-currently 123
3% saline-cautious administration
Goal correction 4-6 mEq/liter in the first 24 hours with subsequent slow reversal
Desmopressin provided 09/29/2024-monitor hourly urine output
Monitor neurologic status closely-rapid correction can rarely leads to osmotic demyelination syndrome
Nephrology evaluation ongoing-correspondence reviewed
Diuretics and potential use of Samsca per nephrology
TSH-normal 2.85
Cortisol-random 52.8
Urine osmolarity and sodium noted
Neurology evaluation-correspondence reviewed
Thiamine initiated
Brain MRI with gadolinium pending-unable to obtain at this point
EEG 09/28/2024 without obvious seizure activity
Repeat EEG 09/29/[address] head 09/29/2024-no acute intracranial abnormalities
Keppra provided
Ativan as needed
Cultures reviewed
Empiric antibiotics-Unasyn initiated
Monitor blood pressure closely
Antihypertensives per nephrology
Nicardipine if needed
Now requiring pressors-wean norepinephrine as needed
Monitor hemoglobin-currently 10.3
Transfuse if needed
PPI
DVT prophylaxis recommended-on heparin subcu
GI prophylaxis-hypotensive on the ventilator-on pantoprazole
Nutrition-nasogastric feedings to begin 09/29/2024
Bedside range of motion
Critical care statement: A total of 50 minutes of critical care time was provided for this patient today. This includes management of unstable vital signs, evaluation of the patient at bedside, reviewing the patient's pertinent medical records
including radiographs, ventilator management, sepsis management, pressor management, microbiology, laboratory evaluations, and discussion with primary team, consultants, pharmacy, charge nurse, critical care nursing, and respiratory therapy.
Diagnostic data:
Chest x-ray 09/28/2024-mild right to left mediastinal shift, moderate elevation right hemidiaphragm
CT head 09/28/2024-no acute intracranial hemorrhage or transcortical infarct, moderate white matter leukoaraiosis in the right parietal lobe
CT head neck angiogram 09/28/2024-acute airway aspiration, no evidence for vertebral artery occlusion or dissection, no evidence for large vessel intracranial stenosis or occlusion
Subjective Dataa
Subjective Data
Date of Service:
Date of Service: September 30, 2024
Chief Complaint: Mold Shifter Follow Up, Pulmonary Follow Up and Vent Management Follow Up
Subjective:
Sedated on a ventilator, no increase secretions, review of systems unobtainable
Review of Systems
General: Other (Per HPI)
Objective Data
Data Reviewed
Vital Signs / I&O / Oxygen:
Vital Signs
Temp Pulse Resp BP Pulse Ox
97.2 F 61 14 84/60 100
09/30/24 07:27 09/30/24 07:15 09/30/24 07:15 09/30/24 04:00 09/30/24 07:15
Intake and Output
09/29/24 09/30/24 10/01/24
06:59 06:59 06:59
Intake Total 1742.2 / 1781.7 4120.3 / 4120.3
Output Total 1761.0 / 1911.0 6585 / 6585
Balance -18.8 / -129.3 -2464.7 / -2464.7
SaO2 [A/C] 100
SaO2 100
Nasal Cannula flow liters per 6
minute
Physical Exam
General: Respiratory Distress (n) and Comfortable
HEENT: Normocephalic, Anicteric and Moist Mucous Membranes
Cardiovascular: Regular Rhythm and Murmur
Respiratory: Wheeze (n), Crackles, Rhonchi, Non-Labored Respirations, Accessory Resp Muscle Use (n), Stridor (n) and ET Tube
GI: Soft, Non Distended and Non Tender
Neurology: Unresponsive (Sedated on a ventilator)
Skin: Warm, Good Color, Cyanosis (n), Jaundice and Rash (n)
Labs/Micro/Reports
Lab Data
09/30/24 03:05
Microbiology
09/29/24 08:10 Tracheal Aspirate Gram Stain - Preliminary
09/28/24 09:10 Blood/Venous Blood Culture - Preliminary
No Growth in 24 hours- Final report to follow
09/28/24 09:10 Blood/Venous Blood Culture - Preliminary
No Growth in 24 hours- Final report to follow
09/28/24 10:12 Nasal Swab Influenza Types A & B (MARY ALICE) - Final
Negative for Influenza A & B, NAAT
Negative results must be combined with clinical observations
and patient history.
Nucleic Acid Amplification test (NAAT)performed on the
[employer] platform.
--- NOTE | 2024-09-30 08:00 | PTCARENOTE ---
Assumed care of patient. Pt rec'd sedated on ventilator. Restrained bilaterally. Pupils 1/sluggish. Makes no purposeful movements...does not follow commands. S1 S2 reg w/ sinus josefina...1st degree AVB/BBC/prolonged QT. Weak PP. +1 LLE. Heels
elevated on pillows. #8ETT 23 cm center lip...current vent settings: 14/450/+5/40%...sats 100%. Lungs clear but diminished. Suctioned orally for thick clear white secretions. Right nare dhf w/ osmo 1.2 @ 40ml/hr and no water flushes. Abdomen
round...+BS. Temp sensing albarran draining blood tinged yellow urine w/ sediment and small clots. Skin intact and warm. Left radial tod..flushed and zeroed. Right DL PICC w/ IVF's, levophed, and diprivan infusing...see interventions. Peripheral
INT's capped. VS documented. On jules shirley..see documentation. Right ankle shackle noted...dry and intact silicone border dressings around ankles prophylactically. Safe environment confirmed. Will continue to monitor closely.
--- NOTE | 2024-09-30 08:00 | W.PN.NEPH.PH ---
Today's Communication / Plan
-
Following electrolytes closely
Assessment/Plan
-
59-year-old male presents emergency department due to altered mental status. He was last seen last night. Upon arrival he had a seizure In the emergency room. He is arriving from the shelter. Patient is verbally unresponsive does respond to
tactile stimuli as he is likely postictal. Unable to get history secondary to patient's mental status although he is on multiple antipsychotic medications including Seroquel and Abilify
Found to have a sodium of 115 renal consult for sodium of 115
Impression:
Hyponatremia 115 decreased down to 109 on admission
Status post seizure
Psychiatric history
Hypothermic
Plan:
Patient intubated since last night
Longoria catheter.
Nonoliguric on 3% saline
Every 4 BMP.
Strict monitoring of urine output to avoid overcorrection greater than 4-6 mill equivalents in first 24 hours.
. Current sodium 114 correcting appropriately
Urine sodium less than 18 with urine osm 196 in the setting of hypotension and hypothermia and MARGARETTE now with a creatinine of 1.5
Received DDAVP last evening (2mcg IV)following rapid polyuria and serum sodium correction with associated polyuria now greater than 6 L
Maintained on D5W at 70 cc/h for hypoglycemia and rapid serum sodium correction
Following serum sodium levels closely
Low urine osmolality of 95 consistent with polydipsia
Most recent serum sodium level 125
Patient critically ill with rapid fluctuating serum sodium levelsm hemodynamic instability and remains intubated
Total Time Spent with Patient (in minutes): 31 minutes critical care
-
-
Date of Service: September 30, 2024
CC / HPI / ROS
-
Chief Complaint:
Altered mental status and hypotension presenting with
History of Present Illness:
Hyponatremia at 115 on admission decreased down to 109 requiring mechanical ventilation mild pressor support and hypothermic
Serum sodium level now up to 125 following polyuria last evening and received 2 mcg IV DDAVP
Remains hemodynamically labile on pressors
Hypoglycemia overnight
Review of Systems:
Nonoliguric >6 liters
Unobtainable
Intubated
Labs
-
Labs:
WBC 6.0 10^3/uL (4.8-10.8) 09/30/24 03:05
RBC 3.45 10^6/uL (4.70-6.10) L 09/30/24 03:05
Hgb 10.3 g/dL (13.0-18.0) L 09/30/24 03:05
Hct 28.5 % (39.0-52.0) L 09/30/24 03:05
Plt Count 80 10^3/uL (130-400) L D 09/30/24 03:05
eGFR 52.97 09/30/24 03:05
Phosphorus 3.2 mg/dl (2.5-4.5) 09/30/24 03:05
Phosphorus Cancelled 09/30/24 03:05
Albumin 3.1 g/dl (3.5-5.0) L 09/29/24 04:23
Physical Exam
-
Vital Signs:
Vital Signs
Temp Pulse Resp BP Pulse Ox
97.2 F 61 14 84/60 100
09/30/24 07:27 09/30/24 07:15 09/30/24 07:15 09/30/24 04:00 09/30/24 07:15
Cardiovascular:: Regular rate and rhythm
Respiratory:: Bilateral: Coarse
Abdomen:: Soft
Bowel Sounds:: Normal
Extremity Edema:: None: Bilateral:
Longoria Catheter: Yes
Other Findings::
General intubated ,sedated
[2024-09-30] MEDS: KEPPRA 750 MG IV ×2 (09:03→20:19)
[2024-09-30] MEDS: PROTONIX IV 40 MG IV (09:13)
[2024-09-30] MEDS: NSS (PRESERVATIVE FREE) 10 ML IV (09:13)
[2024-09-30] MEDS: DILANTIN 100 MG IV ×3 (09:14→23:28)
[2024-09-30] MEDS: MIRALAX 17 GRAMS TUBE (09:20)
[2024-09-30] MEDS: ATROPINE SULFATE 1% DROPS 2 DROP SL (09:20)
[2024-09-30 09:53] LABS: B.E. 0.1 mmol/L; HCO3 23.8 mmol/L (21-28); O2 Saturation % 99.6 % (94-98); PCO2 35 mmHg (35-48); PO2 151 mmHg (83-108); pH 7.44 (7.35-7.45)
--- NOTE | 2024-09-30 09:57 | W.PN.NEURO.1 ---
Today's Communication / Plan
-
.
Subjective/Objective
Subjective Data
Date of Service: September 30, 2024
Neurology follow-up note
24-hour events: Continues to be hypothermic on propofol. No recurrent seizures
Labs: Platelets�80, hemoglobin�10, sodium�126, creatinine�1.5, corrected Dilantin level�17.6��g/mL
PMH: polysubstance addiction, HTN, psychotic DO, NOS
PSH: unknown
SH: active inmate at [facility]
FH: Unknown
All: Haloperidol
ROS: unable
General: Intubated, sedated
Cardio: Regular rate and rhythm. Extremities are without cyanosis or edema.
Neuro:
Mental Status: Comatose. RR=vent
Cranial Nerves: Orthophoric primary gaze, pupils 2 mm, nonreactive. Gag, oculocephalics, corneals�neg bilaterally. No facial weakness.
Motor: Flaccid quadriplegia.
Reflexes: 0/2, plantar response�mute
Sensory: Does not l grimace to noxious stimuli
Coordination: No tremors myoclonic movements
Gait: deferred
Assessment and Plan:
I. Likely provoked seizures from severe hyponatremia
II. Multifactorial encephalopathy (metabolic, toxic)
III. Iatrogenic SIADH
-Aspiration and seizure precautions.
-Continue Keppra 750 mg every 12 hours and phenytoin 100 mg every 8 hours
-Continue thiamine
-Brain MRI wo iraida when able
-DVT prophylaxis.
I personally reviewed all radiology and labs along with past medical records pertinent to current medical problems. Total time spent in patient care is 35 minutes.
Thank you for allowing us to participate in the care of this patient. We will continue to follow. Please do not hesitate to contact us with any questions or concerns
Objective Data
Vital Signs
Temp Pulse Resp BP Pulse Ox
36.2 C 61 14 84/60 100
09/30/24 07:27 09/30/24 07:15 09/30/24 07:15 09/30/24 04:00 09/30/24 07:58
Lab Results
09/30/24 03:05
PT 14.3 Sec (11.4-14.6) 09/28/24 07:57
INR 1.08 09/28/24 07:57
APTT 29.3 Sec (23.4-35.0) 09/28/24 07:57
Sodium 125 mmol/L (135-145) L 09/30/24 03:05
Potassium 3.8 mmol/L (3.5-5.1) 09/30/24 03:05
BUN 25 mg/dl (9-20) H 09/30/24 03:05
Glucose 92 mg/dl (70-99) 09/30/24 03:05
Calcium 7.4 mg/dl (8.4-10.2) L 09/30/24 03:05
Phosphorus 3.2 mg/dl (2.5-4.5) 09/30/24 03:05
Phosphorus Cancelled 09/30/24 03:05
Vitamin B12 556 pg/ml (239-931) 09/28/24 07:57
Ur Buprenorphine Cancelled 09/28/24 13:22
Ur Buprenorphine Negative (Negative) 09/28/24 13:22
Patient Allergies
haloperidol [From Haldol] Allergy (Verified 09/28/24 07:45)
Unknown
Vital Signs and Labs
-
Vital Signs and Labs:
Vital Signs
Temp Pulse Resp BP Pulse Ox
36.4 C 64 12 166/88 100
09/30/24 15:19 09/30/24 14:45 09/30/24 14:45 09/30/24 12:00 09/30/24 15:13
Lab Results
09/30/24 03:05
PT 14.3 Sec (11.4-14.6) 09/28/24 07:57
INR 1.08 09/28/24 07:57
APTT 29.3 Sec (23.4-35.0) 09/28/24 07:57
Sodium 126 mmol/L (135-145) L 09/30/24 16:24
Potassium 3.9 mmol/L (3.5-5.1) 09/30/24 16:24
BUN 22 mg/dl (9-20) H 09/30/24 16:24
Glucose 90 mg/dl (70-99) 09/30/24 16:24
Calcium 7.5 mg/dl (8.4-10.2) L 09/30/24 16:24
Phosphorus 3.2 mg/dl (2.5-4.5) 09/30/24 03:05
Phosphorus Cancelled 09/30/24 03:05
Vitamin B12 556 pg/ml (239-931) 09/28/24 07:57
Ur Buprenorphine Cancelled 09/28/24 13:22
Ur Buprenorphine Negative (Negative) 09/28/24 13:22
Medications
-
Medications:
Generic Name Dose Route Start Last Admin
Trade Name Freq PRN Reason Stop Dose Admin
Acetaminophen 650 mg 09/28/24 11:58
Acetaminophen 325 Mg Tablet PO 10/26/24 11:57
Q4HPRN PRN
mild pain/OLIVEROS/temp> 100.4F
Atropine Sulfate 0 drop 09/28/24 17:08 09/30/24 09:20
Atropine Sulfate 1% (Ophthalmic Drops) Droptainer SL 10/26/24 17:07 2 drop
Q4HPRN PRN Administration
excess oral secretions
Bisacodyl 10 mg 09/28/24 11:58
Bisacodyl 10 Mg Rectal Suppository RECTAL 10/26/24 11:57
[id number] PRN
constipation
Dextrose 12.5 grams 09/29/24 19:36
Dextrose 50% (0.5 Grams/Ml) 50 Ml Syringe IV 10/27/24 19:35
[id number] PRN
hypoglycemia
Protocol
Fentanyl Citrate 50 mcg 09/28/24 15:57 09/30/24 17:01
Fentanyl (50 Mcg/Ml) 100 Mcg/2 Ml Ampul IV 10/12/24 15:56 50 mcg
[id number] PRN Administration
see protocol
Protocol
Glucagon 1 mg 09/29/24 19:36
Glucagon 1 Mg Vial IM 10/27/24 19:35
PRN PRN
hypoglycemia
Protocol
Heparin Sodium 5,000 units 09/29/24 16:00 09/30/24 16:54
Heparin 5,000 Units/Ml 1 Ml Vial SC 10/27/24 15:59 5,000 units
Q8 LIZZETTE Administration
Ampicillin Sodium/Sulbactam 120 mls @ 240 mls/hr 09/28/24 12:00 09/30/24 17:02
Sodium 3 gm/ Sodium Chloride IV 120 mls
Q6H LIZZETTE Administration
Fentanyl Citrate 1,000 mcg in 100 mls @ 0 mls/hr 09/28/24 16:00
Sublimaze IV
PER PROTOCOL LIZZETTE
Protocol
Per Protocol
Propofol 1,000,000 mcg in 100 mls @ 0 mls/hr 09/28/24 16:00 09/30/24 04:05
Diprivan IV 100 mls
PER PROTOCOL LIZZETTE Administration
Protocol
Per Protocol
Norepinephrine Bitartrate 4 mg in 250 mls @ 0 mls/hr 09/30/24 04:15 09/30/24 05:15
Levophed IV 250 mls
PER PROTOCOL LIZZETTE Administration
Protocol
Per Protocol
Labetalol HCl 10 mg 09/28/24 10:19
Labetalol Hcl 5 Mg/1 Ml (20 Mg/4 Ml) Injection IV 10/26/24 10:18
Q6HPRN PRN
SBP>180 or DBP>105
Levetiracetam 750 mg 09/29/24 20:00 09/30/24 09:03
Levetiracetam (100 Mg/Ml) 500 Mg/5 Ml Vial IV 10/27/24 19:59 750 mg
Q12 LIZZETTE Administration
Lorazepam 2 mg 09/28/24 12:35 09/28/24 12:40
Lorazepam 2 Mg/Ml Vial IV 10/26/24 12:34 2 mg
Q4HPRN PRN Administration
seizures
Ondansetron HCl 4 mg 09/28/24 11:58
Ondansetron 4 Mg/2 Ml Vial IV 10/26/24 11:57
Q8HPRN PRN
nausea and vomiting
Pantoprazole Sodium 40 mg 09/29/24 12:00 09/30/24 09:13
Pantoprazole Sodium 40 Mg/10 Ml Vial IV 10/27/24 11:59 40 mg
DAILY LIZZETTE Administration
Phenytoin Sodium 100 mg 09/29/24 10:00 09/30/24 16:50
Phenytoin (50 Mg/ Ml) 100 Mg/2 Ml Vial IV 10/27/24 09:59 100 mg
TID LIZZETTE Administration
Polyethylene Glycol 17 grams 09/28/24 11:58
Polyethylene Glycol Powder 17 Grams Packet PO 10/26/24 11:57
DAILYPRN PRN
constipation
Polyethylene Glycol 17 grams 09/29/24 08:00 09/30/24 09:20
Polyethylene Glycol Powder 17 Grams Packet TUBE 10/27/24 07:59 17 grams
DAILY LIZZETTE Administration
Senna/Docusate Sodium 1 tablet 09/28/24 11:58
Docusate W/Senna (Aurea-Colace) Tablet PO 10/26/24 11:57
BIDPRN PRN
constipation
Sodium Chloride 0 flush 09/28/24 13:00
Sodium Chloride 0.9% (Flush) Syringe IV 10/26/24 12:59
PER PROTOCOL LIZZETTE
Sodium Chloride 0 ml 09/28/24 13:00
Sodium Chloride 0.9% (Preservative Free) 10 Ml Vial IV 10/26/24 12:59
PRN PRN
IV Lorazepam dilution
Protocol
Sodium Chloride 10 ml 09/29/24 12:00 09/30/24 09:13
Sodium Chloride 0.9% (Preservative Free) 10 Ml Vial IV 10/27/24 11:59 10 ml
DAILY LIZZETTE Administration
Home Medications
-
Home Medications
acetaminophen 325 mg tablet 325 mg PO BIDPRN PRN mild pain 09/28/24
amlodipine 10 mg tablet (Norvasc) 10 mg PO HS Blood Pressure 09/28/24
aripiprazole 300 mg suspension, extended rel. intramuscular syringe (Sharonnasra Maintena) 300 mg IM QMONTH Mental Health/Anxiety 09/28/24
benztropine 0.5 mg tablet 0.5 mg PO HS Neurological Condition 09/28/24
lisinopril 40 mg tablet 40 mg PO HS Blood Pressure 09/28/24
quetiapine 100 mg tablet (Seroquel) 100 mg PO HS Mental Health/Anxiety 09/28/24
therapeutic multivitamin 1 tab PO HS Supplement 09/28/24
[2024-09-30 10:41] LABS: Blood Urea Nitrogen 25 mg/dl (9-20); Calcium 7.4 mg/dl (8.4-10.2); Carbon Dioxide 25 mmol/L (22-30); Chloride 93 mmol/L (98-107); Estimated Creatinine Clearance 55 ml/min; Glucose 92 mg/dl (70-99); Sodium 125 mmol/L (135-145); eGFR > 60.00
--- NOTE | 2024-09-30 10:52 | W.PN.INTV ---
Documented by User: Karel Henderson MD, Resident 09/30/24 11:21
Today's Communication / Plan
Recommendations
Give sedation breaks
Spontaneous breathing trial
BMP q4H
Assessment
-
Impression
Patient is a 59-year-old male coming from al[place],with past medical history of polysubstance use disorder, essential hypertension, and psychiatric disorder who was brought to the emergency after seizures associated with tongue bite and change in
mental status.
His workup showed severe hyponatremia of 109, received 3% hypertonic saline boluses in the ER, sodium levels increased appropirately by 4-6meq in first 24hrs.Patient developed polyuria and rapid increase in sodium after that. Suspicion of Arginine
vasopressin deficiency given patient's response to desmopressin.
Brainstem damage??
Assessment
Hyponatremia-improving
Hypothermia, Temperature 97.2-still using bear hugger
Arginine vasopressor deficiency?
Multifactorial encephalopathy sec to sepsis/brainstem damage?/Hyponatremia
Aspiration event -CT chest with mild secretions right side of the trachea layering dependent portion right mainstem bronchus and moderate secretions bronchus intermedius
Hypertensive emergency with evident endorgan damage
Plan
Severe symptomatic hyponatremia-Improving/Arginine vasopressor deficiency?
Patient's sodium levels were 109 on admission,corrected appropirately by 4-6meq in first 24 hrs
Started to rise more aggressively t0 121 and then 125 next day
Nephrology consult appreciated-Shifted from 0.9% NS to half normal saline and is now on 5% dextrose water to help with stabilizing sodium levels
[id number]
Workup showed,Dec serum osm(275),dec urine osm (95), dec urinary sodium suggesting water intoxication,continue to follow-up with Nephrology
Urine output 100ml per hour now
Mechanical ventilation
Patient is on ventilator
Preliminary results from tracheal aspirate shows gram negative bacilli
Plan to decrease Fio2
Give sedation breaks and work way towards Spontaneous breathing trials
Hypothermia
TSH and serum cortisol within normal limits
Total leukocyte count within normal limits
Hypothermia with hyponatremia and fluctuating blood pressures,altered mental status-brainstem damage?
Empiric Unasyn started
Blood cultures preliminary report shows no growth in 48hours
Multifactorial encephalopathy sec to sepsis/brainstem damage?/Hyponatremia
No prior history of seizures
Hyponatremia,hypothermia,polyuria responsive to vasopressin,pinpoint pupils----brainstem involvement?
CT scan of head-mild white matter leukoaraiosis
CTA neck-bilateral severe tortuousity of internal carotid arteries
Brain MRI with gadolinium pending-when able
EEG 09/28-an abnormal EEG recorded in altered mental status due to a moderate-to severe generalized slowing. This finding indicates diffuse cerebral dysfunction, nonspecific in terms of etiology.�
09/29-generalized slowing, excessive beta activity and intermittent attenuation with no epileptiform abnormalities.
CK2 298, sodium�114,B12, folate WNL,UDS Neg
Neuro consult apprec-Aspiration and seizure precautions.
Brain MRI-can do when possible to answer rapid drop in sodium and AVD
Hypertensive emergency
Blood pressure is running high with a peak of 225/113 on admission
On labetalol PRN
Patient is currently on vasopressors/4mcg-wean as able
Other medical conditions
Essential hypertension.
Unknown psychiatric disorder-on Abilify and Seroquel
Polysubstance abuse
Incarcerated.
DVT prophylaxis sequential compression devices
Nutrition consult appreciated-On tube feeds 60ml/hr(osmolite1.2)
No prior history of cardiac disease, EKG done in ER shows QT interval of 448 ms
On Ventilator,with vent settings,rate 14,Vt 450,peep5,Fio2 40
Respiratory rate decreased on vent for alkalotic ph on abgs
Full code
Subjective Dataa
Subjective Data
Date of Service:
Date of Service: September 30, 2024
Chief Complaint: Stock Dealer Follow Up, Pulmonary Follow Up and Vent Management Follow Up
Subjective:
Patient is sedated and on vasopressors
Review of Systems
General: Unobtainable - Sedation
Objective Data
Data Reviewed
Vital Signs / I&O / Oxygen:
Vital Signs
Temp Pulse Resp BP Pulse Ox
97.2 F 61 14 84/60 100
09/30/24 07:27 09/30/24 07:15 09/30/24 07:15 09/30/24 04:00 09/30/24 07:58
Intake and Output
09/29/24 09/30/24 10/01/24
06:59 06:59 06:59
Intake Total 1742.2 / 1781.7 4120.3 / 4120.3
Output Total 1761.0 / 1911.0 6585 / 6585
Balance -18.8 / -129.3 -2464.7 / -2464.7
SaO2 [A/C] 100
SaO2 100
Nasal Cannula flow liters per 6
minute
Physical Exam
General: Other (Patient sedated, and on tube feedings)
HEENT: Normocephalic and Other (Tongue bite wound)
Cardiovascular: S1-S2 and Regular Rhythm
Respiratory: Other (On Mechanical ventilation, Vent settings, RR 14, Peep 5, Fio2 20, vt 450)
GI: Soft, Non Distended and Normal Bowel Sounds
Neurology: Unresponsive (Sedated on a ventilator)
Skin: Warm and Good Color
Labs/Micro/Reports
Lab Data
09/30/24 03:05
Laboratory Results
09/30/24
09:38
pH 7.44
pCO2 35
pO2 151 H
HCO3 23.8
O2 Delivery Level Unk
Microbiology
09/28/24 09:10 Blood/Venous Blood Culture - Preliminary
No Growth in 48 hours- Final report to follow
09/28/24 09:10 Blood/Venous Blood Culture - Preliminary
No Growth in 48 hours- Final report to follow
09/29/24 08:10 Tracheal Aspirate Respiratory Culture - Preliminary
Gram negative bacilli
09/29/24 08:10 Tracheal Aspirate Gram Stain - Preliminary
09/28/24 16:24 Nose MRSA Screen - Final
No Methicillin Resistant Staphylococcus aureus isolated.
09/28/24 10:12 Nasal Swab Influenza Types A & B (MARY ALICE) - Final
Negative for Influenza A & B, NAAT
Negative results must be combined with clinical observations
and patient history.
Nucleic Acid Amplification test (NAAT)performed on the
[employer] platform.

Documented by User: Alin Dobbins MD 09/30/24 12:54
Assessment
-
Impression
Patient is a 59-year-old male coming from alf,with past medical history of polysubstance use disorder, essential hypertension, and psychiatric disorder who was brought to the emergency after seizures associated with tongue bite and change in
mental status.
His workup showed severe hyponatremia of 109, received 3% hypertonic saline boluses in the ER, sodium levels increased appropirately by 4-6meq in first 24hrs.Patient developed polyuria and rapid increase in sodium after that. Suspicion of Arginine
vasopressin deficiency given patient's response to desmopressin.
Brainstem damage??
Assessment
Hyponatremia-improving
Hypothermia, Temperature 97.2-still using bear hugger
Arginine vasopressor deficiency?
Multifactorial encephalopathy sec to sepsis/brainstem damage?/Hyponatremia
Aspiration event -CT chest with mild secretions right side of the trachea layering dependent portion right mainstem bronchus and moderate secretions bronchus intermedius
Hypertensive emergency with evident endorgan damage
Plan
Severe symptomatic hyponatremia-Improving/Arginine vasopressor deficiency?
Patient's sodium levels were 109 on admission,corrected appropirately by 4-6meq in first 24 hrs
Started to rise more aggressively t0 121 and then 125 next day
Nephrology consult appreciated-Shifted from 0.9% NS to half normal saline and is now on 5% dextrose water to help with stabilizing sodium levels
[id number]
Workup showed,Dec serum osm(275),dec urine osm (95), dec urinary sodium suggesting water intoxication,continue to follow-up with Nephrology
Urine output 100ml per hour now
Mechanical ventilation
Patient is on ventilator
Preliminary results from tracheal aspirate shows gram negative bacilli
Plan to decrease Fio2
Give sedation breaks and work way towards Spontaneous breathing trials
Hypothermia
TSH and serum cortisol within normal limits
Total leukocyte count within normal limits
Hypothermia with hyponatremia and fluctuating blood pressures,altered mental status-brainstem damage?
Empiric Unasyn started
Blood cultures preliminary report shows no growth in 48hours
Multifactorial encephalopathy sec to sepsis/brainstem damage?/Hyponatremia
No prior history of seizures
Hyponatremia,hypothermia,polyuria responsive to vasopressin,pinpoint pupils----brainstem involvement?
CT scan of head-mild white matter leukoaraiosis
CTA neck-bilateral severe tortuousity of internal carotid arteries
Brain MRI with gadolinium pending-when able
EEG 09/28-an abnormal EEG recorded in altered mental status due to a moderate-to severe generalized slowing. This finding indicates diffuse cerebral dysfunction, nonspecific in terms of etiology.�
09/29-generalized slowing, excessive beta activity and intermittent attenuation with no epileptiform abnormalities.
CK2 298, sodium�114,B12, folate WNL,UDS Neg
Neuro consult apprec-Aspiration and seizure precautions.
Brain MRI-can do when possible to answer rapid drop in sodium and AVD
Hypertensive emergency
Blood pressure is running high with a peak of 225/113 on admission
On labetalol PRN
Patient is currently on vasopressors/4mcg-wean as able
Other medical conditions
Essential hypertension.
Unknown psychiatric disorder-on Abilify and Seroquel
Polysubstance abuse
Incarcerated.
DVT prophylaxis sequential compression devices
Nutrition consult appreciated-On tube feeds 60ml/hr(osmolite1.2)
No prior history of cardiac disease, EKG done in ER shows QT interval of 448 ms
On Ventilator,with vent settings,rate 14,Vt 450,peep5,Fio2 40
Respiratory rate decreased on vent for alkalotic ph on abgs
Full code
I reviewed this patients case independently and in conjunction with the resident. I personally examined the patient. Patient's complex medical history, laboratory evaluations, events over the last 24 hours, radiographs, microbiological data were
all personally reviewed.
Agree with documented assessment and plan
Alin Dobbins MD, FCCP, DABSM
--- NOTE | 2024-09-30 12:00 | PTCARENOTE ---
No major changes in physical assessment. Weaning levophed and diprivan gtts per orders. Oral care done q4h...previous tongue lacerations noted.
--- NOTE | 2024-09-30 12:23 | CM ---
CM following re: discharge planning.
Reviewed pt's chart, met wit pt. Two guards at bedside.
Per Rounds meeting, pt remains intubated, continue supportive care.
Pt is from [facility] and a plan is to return back to [facility] when medically stable.
[facility] nursing report: [phone]
Discharge instructions fax: [phone]
D/C plan: return back to [facility] when medically stable.
[2024-09-30 12:28] LABS: Blood Urea Nitrogen 24 mg/dl (9-20); Calcium 7.7 mg/dl (8.4-10.2); Carbon Dioxide 25 mmol/L (22-30); Chloride 93 mmol/L (98-107); Estimated Creatinine Clearance 55 ml/min; Glucose 97 mg/dl (70-99); Potassium 4.1 mmol/L (3.5-5.1); Sodium 123 mmol/L (135-145); eGFR > 60.00
--- NOTE | 2024-09-30 15:24 | W.PN.UPDATE ---
Update Note
Progress Note Update
patient admitted for a change in mental status, then had a sz and went on to have another. he required intubaton and remains intubated. i will try again tomorrow to speak with him ; hopefully he will have been extubated by then. spoke to nursing.
he is being weaned at this point from the vent and it is going okay but he is not communicative. attempted to call the [facility] to see if i could get any further information about mr gates. i did speak to a nurse at that
facility who opened his chart and told me he has hx of hypertension r/o dm knee pain w gait dysfunction. he takes abilify maintenna monthly 300mg q 4 wks the last shot 09/20 next due 10/21. he also takes cogentin o,5 mg q seroquel 100 q hs and
lisinopril 40 mg q day. he was dx with 'bipolar, schizophrenia and ptsd' he was seen at the [facility] for his medical care. he has been in the [facility] since april. he is there for [employer]. 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
hx sz to the [facility]'s knowledge. nothing documented in his chart re seizures. as stated will try again tomorrow to see him. he does not need po abilify given that he had injection of maintenna. would hold off on seroquel at this point. will assess
re need for cogentin when i speak w him.
--- NOTE | 2024-09-30 16:00 | PTCARENOTE ---
Pt remains intubated....on CPAP 5/PSV 10/35% wean since 1400. Sats 98-100%. Diprivan gtt off since 1300. Pt occasionally opens eyes...does not follow commands. No purposeful movements noted. Will maintain pt on CPAP/PSV until 8pm or as long as
pt is comfortable (per ). Kofi silvagger remains off. Will continue to monitor closely.
[2024-09-30 16:48] LABS: Blood Urea Nitrogen 22 mg/dl (9-20); Calcium 7.5 mg/dl (8.4-10.2); Carbon Dioxide 26 mmol/L (22-30); Chloride 95 mmol/L (98-107); Estimated Creatinine Clearance 55 ml/min; Glucose 90 mg/dl (70-99); Potassium 3.9 mmol/L (3.5-5.1); Sodium 126 mmol/L (135-145); eGFR > 60.00
[2024-09-30] MEDS: SUBLIMAZE 50 MCG IV ×3 (17:01→23:22)
--- NOTE | 2024-09-30 17:22 | W.PN.HOSP.TC ---
Today's Communication/Plan
-
Assessment / Plan
Assessment / Plan
Gen-intubated and sedated
HEENT-NC, AT, anicteric, pupils equal
Neck-supple
CV-reg, no M, +S1/S2
Lungs-mechanical breath sounds B/L
Abd-soft, NT, ND
Musculoskeletal-mild edema bilateral upper and lower extremities, no deformity
Skin-warm and dry
Neuro-sedated, no tremor
Psych-unable to assess
59yo M with HTN, psychiatric d/o, incarcerated in [facility] brought 2/2 significant sedation, poor responsiveness and seizures with tongue biting. Found severe hyponatremia.
A/P
#Hyponatremia, severe with seizures
-most likely 2/2 psychiatric meds which are being held
-Serum sodium levels improving, currently off IV fluids
-Nephrology follow up, cont frequent BMP
-Keppra loaded in ED - will continue
-seizure precautions
#Acute hypoxic respiratory failure
-2/2 significant lethargy with hyponatremia
-Intubated on 09/28/24
-Property Accountant for vent mgmt and sedation mgmt
#Acute metabolic encephalopathy
-most likely post-ictal abd severe hyponatremia
-significant sedation with plan for sedation vacation today to assess mental status
-CT head without acute hemorrhage or stroke on admisiion
-MRI brain when able
-Keppra/dilantin
-EEG with generalized slowness
-Ativam PRN, Propofol drip while intubated for seizures
-UDS Neg
-B12, folate WNL
#Hypothermia:
- concern for brain stem damage with hyponatremia
-Warming blanket
-TSH and cortisol WNL
#Aspiration pneumonia:
-Continue antibiotic treatment with Unasyn
#mild thrombocytopenia
-unclear reason, might be reactive. No heparin product given on admission
#Mild R to L mediastinal shift
-without signs of pneumothorax on XR
#Psychiatric d/o
-hold meds
-Evaluated by psych, recommend holding off on Seroquel at this point, will reassess when patient more awake
#Essential HTN with HTN emergency on admission
-Blood pressure labile, requiring vasopressors
-labetalol PRN
DVT ppx SCDs (with stroke w//U)
Full code
I have spent at least 58min of critical care time reviewing chart, test results, communication with cosnultants and direct patient care
Anticipated Discharge: > 48 hours
Subjective/Interval History
-
Date of Service: September 30, 2024
Mr. Zamorano was seen and examined in the ICU this morning. He remains intubated and sedated.
Objective Data
-
Labs:
Laboratory Results
09/30/24 09/30/24 09/30/24
08:26 09:38 11:55
HCO3 23.8
Sodium 125 L 123 L
Potassium 4.0 4.1
Chloride 93 L 93 L
Carbon Dioxide 25 25
BUN 25 H 24 H
Creatinine 1.3 1.3
Glucose 92 97
Calcium 7.4 L 7.7 L
09/30/24 09/30/24
16:24 20:00
HCO3
Sodium 126 L Pending
Potassium 3.9 Pending
Chloride 95 L Pending
Carbon Dioxide 26 Pending
BUN 22 H Pending
Creatinine 1.3 Pending
Glucose 90 Pending
Calcium 7.5 L Pending
Vital Signs:
Vital Signs
Temp Pulse Resp BP Pulse Ox
97.5 F 64 12 166/88 100
09/30/24 15:19 09/30/24 14:45 09/30/24 14:45 09/30/24 12:00 09/30/24 15:13
I&O
09/29/24 09/30/24 10/01/24
06:59 06:59 06:59
Intake Total 1742.2 / 1781.7 4120.3 / 4212.3 538.85 / 538.85
Output Total 1761.0 / 1911.0 6585 / 6685 425 / 425
Balance -18.8 / -129.3 -2464.7 / -2472.7 113.85 / 113.85
Review of Systems
-
Unable to obtain full review of systems at this time due to: Patient Intubation
Physical Exam
-
General: Intubated
[2024-09-30 20:46] LABS: Blood Urea Nitrogen 22 mg/dl (9-20); Calcium 7.7 mg/dl (8.4-10.2); Carbon Dioxide 28 mmol/L (22-30); Chloride 95 mmol/L (98-107); Estimated Creatinine Clearance 55 ml/min; Glucose 83 mg/dl (70-99); Potassium 4.1 mmol/L (3.5-5.1); Sodium 128 mmol/L (135-145); eGFR > 60.00
--- NOTE | 2024-09-30 21:00 | W.PN.UPDATE ---
Update Note
Progress Note Update
09/30/24
2029- Dr. Abrams, edge gluer, updated on bmp Na result 128, urine output 400cc. Recommendations received if Na >132, than initiate D5W at 70cc/hr and continue to trend BMP q4H.
--- NOTE | 2024-09-30 21:37 | PTCARENOTE ---
Pt received at 19:00, intubated/no sedation. Approx 20:00, pt agitated, restless, and asynchronous on the vent. PRN fentanyl given and effective. Pt opens eyes to voice, not following commands, pupils 1 and sluggish. + corneal and cough,
delayed/inconsistent gag reflex. SR with 1st degree AVB, BBB, prolonged QT. Palpable pulses, +1 LE edema. #8 ETT @ 23cm, repositioned from R to L. AC 14/450/35%/+5. Breath sounds diminished t/o. Small amount of thick yellow/white secretions via ETT,
oral secretions clear/occasionally blood tinged--copious amounts. + bowel sounds, no BM noted at this time. DHT in place with TF at goal rate. [place] in place, draining yellow/blood tinged, sediment, blood clots. B/L ankles with foam dressings for
protection. Safe environment maintained, pt repositioned.
[2024-09-30] MEDS: ATIVAN 2 MG IV (23:23)
--- NOTE | 2024-09-30 23:36 | PTCARENOTE ---
Pt with RASS +3, agitated, restless, kicking legs. Fentanyl and ativan PRN given and effective, propofol restarted.
[2024-10-01] VITALS (11 sets, daily range): BP systolic 85–160; BP diastolic 59–94; BMI 26.5
[2024-10-01 00:31] LABS: Vitamin B1, Whole Blood 104 nmol/L (70-180)
[2024-10-01 00:55] LABS: Blood Urea Nitrogen 22 mg/dl (9-20); Calcium 7.9 mg/dl (8.4-10.2); Carbon Dioxide 26 mmol/L (22-30); Chloride 98 mmol/L (98-107); Estimated Creatinine Clearance 59 ml/min; Glucose 81 mg/dl (70-99); Potassium 4.1 mmol/L (3.5-5.1); Sodium 130 mmol/L (135-145); eGFR > 60.00
[2024-10-01] MEDS: SUBLIMAZE 50 MCG IV ×2 (05:01→21:30)
[2024-10-01] MEDS: UNASYN IV ×3 (05:18→17:49)
[2024-10-01 05:30] LABS: Blood Urea Nitrogen 21 mg/dl (9-20); Calcium 7.9 mg/dl (8.4-10.2); Carbon Dioxide 27 mmol/L (22-30); Chloride 99 mmol/L (98-107); Estimated Creatinine Clearance 59 ml/min; Glucose 124 mg/dl (70-99); Potassium 3.9 mmol/L (3.5-5.1); Sodium 130 mmol/L (135-145); Triglycerides 78 mg/dl (10-149); eGFR > 60.00
[2024-10-01 05:47] LABS: Hematocrit 31.6 % (39.0-52.0); Hemoglobin 10.9 g/dL (13.0-18.0); Mean Corp Hgb Conc. 34.5 g/dL (33.0-37.0); Mean Platelet Volume 10.8 fL (7.4-10.4); Platelet Count 94 10^3/uL (130-400); Red Blood Cell Count 3.76 10^6/uL (4.70-6.10); Red Cell Dist. Width 13.9 % (11.5-14.5); White Blood Cell Count 5.9 10^3/uL (4.8-10.8)
[2024-10-01 06:33] LABS: HCO3 26.5 mmol/L (21-28); O2 Saturation % 99.7 % (94-98); PCO2 40 mmHg (35-48); PO2 131 mmHg (83-108); pH 7.43 (7.35-7.45)
--- NOTE | 2024-10-01 07:48 | W.PN.INTV ---
Today's Communication / Plan
Recommendations
Spontaneous breathing trial
Check ABG
Wean pressors
Antibiotics
Antiepileptics
Correcting hyponatremia
Assessment
-
59-year-old non-smoking incarcerated male with a history of hypertension and psychiatric disorder presented after seizure with mental status changes found to have severe hyponatremia given 3% saline-application engineer consulted for severe hyponatremia,
seizures, critical care management 09/28/2024.
Severe hyponatremia with subsequent seizures on psychiatric medications-serum sodium 115
Status post seizure-provoked from hyponatremia
Ventilator dependent respiratory failure
Intubated 09/28/2024
Extubated
Metabolic encephalopathy
Hypothermia
Aspiration-possible pneumonia related to it-CT chest with mild secretions right side of the trachea layering dependent portion right mainstem bronchus and moderate secretions bronchus intermedius
Hypertensive emergency-blood pressure 220/133
Lactic acidosis
Right hemidiaphragm elevation-mild
Conditions present prior to admission:
Hypertension.
Psychiatric pihwmyvd-EPR-jy Abilify, Seroquel
Polysubstance abuse
Incarcerated.
Plan
Remains critically ill on a ventilator
Patient intubated-ventilator settings reviewed
Pulmonary airway pressures reviewed
Attempt spontaneous breathing trial
Follow ABG
Hope to extubate in the next 24 hours
Follow radiographically
VAP prevention continues per protocol
Nebulizers if needed-currently not bronchospastic
Chest x-ray 09/29/2024-no obvious infiltrates yet
Chest x-ray 09/30/2024-no pneumothorax, no new abnormalities
Chest x-ray 10/01/2024-interval increase in the left mid to lower lung field opacifications likely from atelectasis
Follow serum sodium level closely-currently 130-slowly corrected
3% saline-cautious administration
Goal correction 4-6 mEq/liter in the first 24 hours with subsequent slow reversal
Desmopressin provided 09/29/2024-monitor hourly urine output
Monitor neurologic status closely-rapid correction can rarely leads to osmotic demyelination syndrome
Nephrology evaluation ongoing-correspondence reviewed
TSH-normal 2.85
Cortisol-random 52.8
Urine osmolarity and sodium noted
Neurology evaluation-correspondence reviewed
Thiamine initiated
Brain MRI with gadolinium pending-unable to obtain at this point
EEG 09/28/2024 without obvious seizure activity
Repeat EEG 09/29/2024 without obvious seizure activity
Repeat CT head 09/29/2024-no acute intracranial abnormalities
Keppra continues
Ativan as needed
Cultures reviewed
Sputum/tracheal aspirate 09/29/2024-Citrobacter and Pseudomonas
Empiric antibiotics-Unasyn initiated
Monitor blood pressure closely
Antihypertensives per nephrology
Nicardipine if needed
Now requiring pressors-wean norepinephrine as needed
Monitor hemoglobin-currently 10.3
Transfuse if needed
PPI
DVT prophylaxis recommended-on heparin subcu
GI prophylaxis-hypotensive on the ventilator-on pantoprazole
Nutrition-nasogastric feedings to begin 09/29/2024
Bedside range of motion
Critical care statement: A total of 45 minutes of critical care time was provided for this patient today. This includes management of unstable vital signs, evaluation of the patient at bedside, reviewing the patient's pertinent medical records
including radiographs, ventilator management, sepsis management, pressor management, microbiology, laboratory evaluations, and discussion with primary team, consultants, pharmacy, charge nurse, critical care nursing, and respiratory therapy.
Diagnostic data:
Chest x-ray 09/28/2024-mild right to left mediastinal shift, moderate elevation right hemidiaphragm
CT head 09/28/2024-no acute intracranial hemorrhage or transcortical infarct, moderate white matter leukoaraiosis in the right parietal lobe
CT head neck angiogram 09/28/2024-acute airway aspiration, no evidence for vertebral artery occlusion or dissection, no evidence for large vessel intracranial stenosis or occlusion
Subjective Dataa
Subjective Data
Date of Service:
Date of Service: October 01, 2024
Chief Complaint: Assistant Plant Manager Follow Up, Pulmonary Follow Up and Vent Management Follow Up
Subjective:
Tolerated spontaneous breathing trial yesterday, some agitation, more alert, no seizures, mild secretions, unable to obtain review of systems
Review of Systems
General: Other (Per HPI)
Objective Data
Data Reviewed
Vital Signs / I&O / Oxygen:
Vital Signs
Temp Pulse Resp BP Pulse Ox
96.7 F L 60 14 113/75 100
10/01/24 05:21 10/01/24 01:30 10/01/24 01:30 10/01/24 00:00 10/01/24 04:00
Intake and Output
09/30/24 10/01/24 10/02/24
06:59 06:59 06:59
Intake Total 4120.3 / 4212.3 887.05 / 887.05
Output Total 6585 / 6685 3785 / 3785
Balance -2464.7 / -2472.7 -2897.95 / -2897.95
SaO2 [CPAP/PSV] 100
SaO2 [A/C] 100
SaO2 100
Nasal Cannula flow liters per 6
minute
Physical Exam
General: Respiratory Distress (n), Comfortable and Other (Patient sedated, and on tube feedings)
HEENT: Normocephalic, Anicteric and Other (Tongue bite wound)
Cardiovascular: Regular Rhythm
Respiratory: Wheeze (n), Crackles, Rhonchi, Non-Labored Respirations, Accessory Resp Muscle Use (n), Stridor (n) and ET Tube
GI: Soft, Non Distended and Normal Bowel Sounds
Neurology: Awake, Alert, No Motor Deficits and Lethargic (Sedated on the ventilator)
Skin: Warm, Good Color, Cyanosis (n), Jaundice (n) and Rash (n)
Labs/Micro/Reports
Lab Data
10/01/24 04:44
Laboratory Results
09/30/24 10/01/24
09:38 06:17
pH 7.44 7.43
pCO2 35 40
pO2 151 H 131 H
HCO3 23.8 26.5
O2 Delivery Level Unk
Microbiology
09/28/24 09:10 Blood/Venous Blood Culture - Preliminary
No Growth in 48 hours- Final report to follow
09/28/24 09:10 Blood/Venous Blood Culture - Preliminary
No Growth in 48 hours- Final report to follow
09/29/24 08:10 Tracheal Aspirate Respiratory Culture - Preliminary
Gram negative bacilli
09/29/24 08:10 Tracheal Aspirate Gram Stain - Preliminary
09/28/24 16:24 Nose MRSA Screen - Final
No Methicillin Resistant Staphylococcus aureus isolated.
09/28/24 10:12 Nasal Swab Influenza Types A & B (MARY ALICE) - Final
Negative for Influenza A & B, NAAT
Negative results must be combined with clinical observations
and patient history.
Nucleic Acid Amplification test (NAAT)performed on the
[employer] platform.
--- NOTE | 2024-10-01 08:06 | W.PN.NEPH.PH ---
Today's Communication / Plan
-
Sodium at 130
Remains intubated on tube feed with no free water flush
Assessment/Plan
-
59-year-old male presents emergency department due to altered mental status. He was last seen last night. Upon arrival he had a seizure In the emergency room. [facility]. Patient is verbally unresponsive does respond to
tactile stimuli as he is likely postictal. Unable to get history secondary to patient's mental status although he is on multiple antipsychotic medications including Seroquel and Abilify
Found to have a sodium of 115 renal consult for sodium of 115
Impression:
Hyponatremia 115 decreased down to 109 on admission
Status post seizure
Psychiatric history
Hypothermic
Plan:
Longoria catheter. ~3500cc
Now on tube feeds no free water flush
Every 8hr BMP
Strict monitoring of urine output to avoid overcorrection greater than 4-6 mill equivalents in first 24 hours.
Current sodium 130 correcting appropriately
Urine sodium less than 18 with urine osm 196 in the setting of hypotension and hypothermia and MARGARETTE now with a creatinine of 1.5
Following serum sodium levels closely
Low urine osmolality of 95 consistent with polydipsia
Patient critically ill with rapid fluctuating serum sodium levelsm hemodynamic instability and remains intubated
Total Time Spent with Patient (in minutes): 31
-
-
Date of Service: October 01, 2024
CC / HPI / ROS
-
Chief Complaint:
Altered mental status and hypotension presenting with
History of Present Illness:
Hyponatremia at 115 on admission now up to 130
Remains in today
Hemodynamically
Review of Systems:
Nonoliguric >3.5 liters
Unobtainable
Intubated
Labs
-
Labs:
WBC 5.9 10^3/uL (4.8-10.8) 10/01/24 04:44
RBC 3.76 10^6/uL (4.70-6.10) L 10/01/24 04:44
Hgb 10.9 g/dL (13.0-18.0) L 10/01/24 04:44
Hct 31.6 % (39.0-52.0) L 10/01/24 04:44
Plt Count 94 10^3/uL (130-400) L 10/01/24 04:44
eGFR > 60.00 10/01/24 04:44
Phosphorus 3.2 mg/dl (2.5-4.5) 09/30/24 03:05
Phosphorus Cancelled 09/30/24 03:05
Albumin 3.1 g/dl (3.5-5.0) L 09/29/24 04:23
Physical Exam
-
Vital Signs:
Vital Signs
Temp Pulse Resp BP Pulse Ox
96.7 F L 60 14 113/75 100
10/01/24 05:21 10/01/24 01:30 10/01/24 01:30 10/01/24 00:00 10/01/24 07:53
Cardiovascular:: Regular rate and rhythm
Respiratory:: Bilateral: Coarse
Abdomen:: Soft
Bowel Sounds:: Normal
Extremity Edema:: None: Bilateral:
Longoria Catheter: Yes
Other Findings::
General intubated ,sedated
[2024-10-01] MEDS: HEPARIN 5000 UNITS SC ×2 (08:11→15:27)
[2024-10-01] MEDS: NSS (PRESERVATIVE FREE) 10 ML IV (08:11)
[2024-10-01] MEDS: PROTONIX IV 40 MG IV (08:11)
[2024-10-01] MEDS: MIRALAX 17 GRAMS TUBE (08:11)
[2024-10-01] MEDS: DILANTIN 100 MG IV ×3 (08:12→21:31)
[2024-10-01] MEDS: KEPPRA 750 MG IV ×2 (08:12→19:40)
--- NOTE | 2024-10-01 10:28 | W.PN.UPDATE ---
Update Note
Progress Note Update
patient remains intubated. psych will try to see him again tomorrow. would continue to hold off on psych meds. he does have martin peña on board not due until october 21 (this injection is given monthly generally)
--- NOTE | 2024-10-01 11:10 | W.PN.INTV ---
Documented by User: Karel Henderson MD, Resident 10/01/24 11:29
Today's Communication / Plan
Recommendations
Wean off vasopressors
Spontaneous breathing trial
Temperature charting
Non-urgent echocardiography
MRI brain-when able
Assessment
-
Impression
Patient is a 59-year-old male coming from residential,with past medical history of polysubstance use disorder, essential hypertension, and psychiatric disorder who was brought to the emergency after seizures associated with tongue bite and change in
mental status.
Requiring ICU for symptomatic hyponatremia,hypothermia and vent needs.
Suspicion of Arginine vasopressin deficiency given patient's response to desmopressin.
Brainstem damage??
Assessment
Hyponatremia
Hypothermia
Arginine vasopressor deficiency?
Multifactorial encephalopathy sec to sepsis/brainstem damage?/Hyponatremia
Aspiration event -CT chest with mild secretions right side of the trachea layering dependent portion right mainstem bronchus and moderate secretions bronchus intermedius
Hypertensive emergency with evident endorgan damage
Plan
Severe symptomatic hyponatremia-Improving/Arginine vasopressor deficiency?
Patient's sodium levels were 109 on admission,corrected appropirately by 4-6meq in first 24 hrs
Started to rise more aggressively t0 121 and then 125 next day
Nephrology consult appreciated-Shifted from 0.9% NS to half normal saline and is now on 5% dextrose water to help with stabilizing sodium levels
[id number]
Workup showed,Dec serum osm(275),dec urine osm (95), dec urinary sodium suggesting water intoxication,continue to follow-up with Nephrology
Urine output stabilized now
No further vasopressin was needed
Following serum sodium levels closely
Ya=562 today
BMP every 8 hours
Mechanical ventilation
Patient is on ventilator
Results from tracheal aspirate show Pseudomonas-based on clinical correlation-will hold on starting antibiotics for Pseudomonas at this time
Give sedation breaks and work way towards Spontaneous breathing trials
Plan to give SBT
Hypothermia
Maintaining core temperature in last 24hrs-off bear hugger-continue temperature charting
TSH and serum cortisol within normal limits
Total leukocyte count within normal limits
Hypothermia with hyponatremia and fluctuating blood pressures,altered mental status-brainstem damage?
Empiric Unasyn started-4th day today
Blood cultures preliminary report shows no growth in 72 hours
Multifactorial encephalopathy sec to sepsis/brainstem damage?/Hyponatremia
No prior history of seizures
Hyponatremia,hypothermia,polyuria responsive to vasopressin,pinpoint pupils----brainstem involvement?
CT scan of head-mild white matter leukoaraiosis
CTA neck-bilateral severe tortuousity of internal carotid arteries
Brain MRI with gadolinium pending-Will do when able
EEG 09/28-an abnormal EEG recorded in altered mental status due to a moderate-to severe generalized slowing. This finding indicates diffuse cerebral dysfunction, nonspecific in terms of etiology.�
09/29-generalized slowing, excessive beta activity and intermittent attenuation with no epileptiform abnormalities.
CK2 298, sodium�114,B12, folate WNL,UDS Neg
Neuro consult apprec-Aspiration and seizure precautions.
Hypertensive emergency
Blood pressure was running high with a peak of 225/113 on admission
On labetalol PRN
Patient has been on vasopressors,wean off today and check pressures
EKG shows poor progression of R-wave and fulfills LVH criteria,Non urgent echocardiography
Other medical conditions
Essential hypertension.
Unknown psychiatric disorder-on Abilify and Seroquel
Polysubstance abuse
Incarcerated.
DVT prophylaxis sequential compression devices
Nutrition consult appreciated-On tube feeds 60ml/hr(osmolite1.2)
No prior history of cardiac disease, EKG done in ER shows QT interval of 448 ms
On Ventilator,with vent settings,rate 14,Vt 450,peep5,Fio2 40
Respiratory rate decreased on vent for alkalotic ph on abgs
Full code
Subjective Dataa
Subjective Data
Date of Service:
Date of Service: October 01, 2024
Chief Complaint: Tip Bander Follow Up, Pulmonary Follow Up and Vent Management Follow Up
Subjective:
Gave sedation breaks yesterday afternoon,and also today in the morning.Patient grimacing and raising eyebrows although still sedated and intubated
Review of Systems
General: Unobtainable - Sedation
Objective Data
Data Reviewed
Vital Signs / I&O / Oxygen:
Vital Signs
Temp Pulse Resp BP Pulse Ox
96.1 F L 66 15 130/81 100
10/01/24 08:57 10/01/24 10:15 10/01/24 10:15 10/01/24 08:00 10/01/24 10:59
Intake and Output
09/30/24 10/01/24 10/02/24
06:59 06:59 06:59
Intake Total 4120.3 / 4212.3 887.05 / 964.65 395.2 / 395.2
Output Total 6585 / 6685 3785 / 3785 285 / 285
Balance -2464.7 / -2472.7 -2897.95 / -2820.35 110.2 / 110.2
SaO2 [CPAP/PSV] 100
SaO2 [A/C] 100
SaO2 100
Nasal Cannula flow liters per 6
minute
Physical Exam
General: Other (Patient sedated, intubated and on tube feedings) and Other (Bilateral pedal edema)
HEENT: Normocephalic and Other (Tongue bite wound, Bilateral pinpoint pupils)
Cardiovascular: S1-S2, Regular Rhythm and Other (No rubs or murmur)
Respiratory: Non-Labored Respirations, ET Tube and Other (mechanical breath sounds)
GI: Soft, Non Distended and Normal Bowel Sounds
Neurology: Other (Responsive to tactile stimulation,grimacing and raising eyebrows)
Skin: Warm and Good Color
Labs/Micro/Reports
Lab Data
10/01/24 04:44
10/01/24 20:00
Laboratory Results
10/01/24
06:17
pH 7.43
pCO2 40
pO2 131 H
HCO3 26.5
O2 Delivery Level
Microbiology
09/28/24 09:10 Blood/Venous Blood Culture - Preliminary
No Growth in 72 hours- Final report to follow
09/28/24 09:10 Blood/Venous Blood Culture - Preliminary
No Growth in 72 hours- Final report to follow
09/29/24 08:10 Tracheal Aspirate Respiratory Culture - Preliminary
Citrobacter youngae
Pseudomonas aeruginosa
09/29/24 08:10 Tracheal Aspirate Gram Stain - Preliminary
09/28/24 16:24 Nose MRSA Screen - Final
No Methicillin Resistant Staphylococcus aureus isolated.
09/28/24 10:12 Nasal Swab Influenza Types A & B (MARY ALICE) - Final
Negative for Influenza A & B, NAAT
Negative results must be combined with clinical observations
and patient history.
Nucleic Acid Amplification test (NAAT)performed on the
[employer] platform.

Documented by User: Alin Dobbins MD 10/01/24 12:57
Assessment
-
Impression
Patient is a 59-year-old male coming from residential,with past medical history of polysubstance use disorder, essential hypertension, and psychiatric disorder who was brought to the emergency after seizures associated with tongue bite and change in
mental status.
Requiring ICU for symptomatic hyponatremia,hypothermia and vent needs.
Suspicion of Arginine vasopressin deficiency given patient's response to desmopressin.
Brainstem damage??
Assessment
Hyponatremia
Hypothermia
Arginine vasopressor deficiency?
Multifactorial encephalopathy sec to sepsis/brainstem damage?/Hyponatremia
Aspiration event -CT chest with mild secretions right side of the trachea layering dependent portion right mainstem bronchus and moderate secretions bronchus intermedius
Hypertensive emergency with evident endorgan damage
Plan
Severe symptomatic hyponatremia-Improving/Arginine vasopressor deficiency?
Patient's sodium levels were 109 on admission,corrected appropirately by 4-6meq in first 24 hrs
Started to rise more aggressively t0 121 and then 125 next day
Nephrology consult appreciated-Shifted from 0.9% NS to half normal saline and is now on 5% dextrose water to help with stabilizing sodium levels
[id number]
Workup showed,Dec serum osm(275),dec urine osm (95), dec urinary sodium suggesting water intoxication,continue to follow-up with Nephrology
Urine output stabilized now
No further vasopressin was needed
Following serum sodium levels closely
Xg=351 today
BMP every 8 hours
Mechanical ventilation
Patient is on ventilator
Results from tracheal aspirate show Pseudomonas-based on clinical correlation-will hold on starting antibiotics for Pseudomonas at this time
Give sedation breaks and work way towards Spontaneous breathing trials
Plan to give SBT
Hypothermia
Maintaining core temperature in last 24hrs-off bear hugger-continue temperature charting
TSH and serum cortisol within normal limits
Total leukocyte count within normal limits
Hypothermia with hyponatremia and fluctuating blood pressures,altered mental status-brainstem damage?
Empiric Unasyn started-4th day today
Blood cultures preliminary report shows no growth in 72 hours
Multifactorial encephalopathy sec to sepsis/brainstem damage?/Hyponatremia
No prior history of seizures
Hyponatremia,hypothermia,polyuria responsive to vasopressin,pinpoint pupils----brainstem involvement?
CT scan of head-mild white matter leukoaraiosis
CTA neck-bilateral severe tortuousity of internal carotid arteries
Brain MRI with gadolinium pending-Will do when able
EEG 01/13-an abnormal EEG recorded in altered mental status due to a moderate-to severe generalized slowing. This finding indicates diffuse cerebral dysfunction, nonspecific in terms of etiology.�
09/29-generalized slowing, excessive beta activity and intermittent attenuation with no epileptiform abnormalities.
CK2 298, sodium�114,B12, folate WNL,UDS Neg
Neuro consult apprec-Aspiration and seizure precautions.
Hypertensive emergency
Blood pressure was running high with a peak of 225/113 on admission
On labetalol PRN
Patient has been on vasopressors,wean off today and check pressures
EKG shows poor progression of R-wave and fulfills LVH criteria,Non urgent echocardiography
Other medical conditions
Essential hypertension.
Unknown psychiatric disorder-on Abilify and Seroquel
Polysubstance abuse
Incarcerated.
DVT prophylaxis sequential compression devices
Nutrition consult appreciated-On tube feeds 60ml/hr(osmolite1.2)
No prior history of cardiac disease, EKG done in ER shows QT interval of 448 ms
On Ventilator,with vent settings,rate 14,Vt 450,peep5,Fio2 40
Respiratory rate decreased on vent for alkalotic ph on abgs
Full code
I reviewed this patients case independently and in conjunction with the resident. I personally examined the patient. Patient's complex medical history, laboratory evaluations, events over the last 24 hours, radiographs, microbiological data were
all personally reviewed.
Agree with documented assessment and plan
Alin Dobbins MD, FCCP, DAB
--- NOTE | 2024-10-01 11:42 | W.PN.NEURO.1 ---
Today's Communication / Plan
-
.
Subjective/Objective
Subjective Data
Date of Service: October 01, 2024
Neurology follow-up note.
24-hour events: Continues to be hypothermic, off propofol, Levophed and fentanyl. Received lorazepam 2 mg IV on 09/30/24 at 23:23. No recurrent seizures
Labs: Na-130, platelets�94. Brain MRI is pending.
PMH: polysubstance addiction, HTN, psychotic DO, NOS
PSH: unknown
SH: active inmate at [facility]
FH: Unknown
All: Haloperidol
ROS: unable
General: Intubated, restrained
Cardio: Regular rate and rhythm. Extremities are without cyanosis or edema.
Neuro:
Mental Status: Opens eyes to tactile stimuli. Does not attempt to follow requests.
Cranial Nerves: Orthophoric primary gaze, pupils 2 mm, nonreactive. Positive gag, corneals.
Motor: Flaccid quadriplegia.
Reflexes: 0/2, plantar response�mute
Sensory: Does not grimace to noxious stimuli
Coordination: No tremors myoclonic movements
Gait: deferred
Assessment and Plan:
I. Likely provoked seizures from severe hyponatremia
II. Multifactorial encephalopathy (metabolic, toxic), improved
III. Severe hyponatremia
-Aspiration and seizure precautions.
-Continue Keppra 750 mg every 12 hours and phenytoin 100 mg every 8 hours
-Continue thiamine
-Brain MRI wo iraida when able
-DVT prophylaxis.
I personally reviewed all radiology and labs along with past medical records pertinent to current medical problems. Total time spent in patient care is 35 minutes.
Thank you for allowing us to participate in the care of this patient. We will continue to follow. Please do not hesitate to contact us with any questions or concerns
Objective Data
Vital Signs
Temp Pulse Resp BP Pulse Ox
35.6 C L 66 15 130/81 100
10/01/24 08:57 10/01/24 10:15 10/01/24 10:15 10/01/24 08:00 10/01/24 10:59
Lab Results
10/01/24 04:44
10/01/24 20:00
PT 14.3 Sec (11.4-14.6) 09/28/24 07:57
INR 1.08 09/28/24 07:57
APTT 29.3 Sec (23.4-35.0) 09/28/24 07:57
Sodium Cancelled 10/01/24 20:00
Potassium Cancelled 10/01/24 20:00
BUN Cancelled 10/01/24 20:00
Glucose Cancelled 10/01/24 20:00
Calcium Cancelled 10/01/24 20:00
Phosphorus 3.2 mg/dl (2.5-4.5) 09/30/24 03:05
Phosphorus Cancelled 09/30/24 03:05
Whole Bld Vitamin B1 104 nmol/L (70-180) 09/28/24 10:53
Vitamin B12 556 pg/ml (239-931) 09/28/24 07:57
Ur Buprenorphine Cancelled 09/28/24 13:22
Ur Buprenorphine Negative (Negative) 09/28/24 13:22
Patient Allergies
haloperidol [From Haldol] Allergy (Verified 09/28/24 07:45)
Unknown
Vital Signs and Labs
-
Vital Signs and Labs:
Vital Signs
Temp Pulse Resp BP Pulse Ox
35.6 C L 66 15 130/81 100
10/01/24 08:57 10/01/24 10:15 10/01/24 10:15 10/01/24 08:00 10/01/24 10:59
Lab Results
10/01/24 04:44
10/01/24 20:00
PT 14.3 Sec (11.4-14.6) 09/28/24 07:57
INR 1.08 09/28/24 07:57
APTT 29.3 Sec (23.4-35.0) 09/28/24 07:57
Sodium Cancelled 10/01/24 20:00
Potassium Cancelled 10/01/24 20:00
BUN Cancelled 10/01/24 20:00
Glucose Cancelled 10/01/24 20:00
Calcium Cancelled 10/01/24 20:00
Phosphorus 3.2 mg/dl (2.5-4.5) 09/30/24 03:05
Phosphorus Cancelled 09/30/24 03:05
Whole Bld Vitamin B1 104 nmol/L (70-180) 09/28/24 10:53
Vitamin B12 556 pg/ml (239-931) 09/28/24 07:57
Ur Buprenorphine Cancelled 09/28/24 13:22
Ur Buprenorphine Negative (Negative) 09/28/24 13:22
Medications
-
Medications:
Generic Name Dose Route Start Last Admin
Trade Name Freq PRN Reason Stop Dose Admin
Acetaminophen 650 mg 09/28/24 11:58
Acetaminophen 325 Mg Tablet PO 10/26/24 11:57
Q4HPRN PRN
mild pain/OLIVEROS/temp> 100.4F
Atropine Sulfate 0 drop 09/28/24 17:08 09/30/24 09:20
Atropine Sulfate 1% (Ophthalmic Drops) Droptainer SL 10/26/24 17:07 2 drop
Q4HPRN PRN Administration
excess oral secretions
Bisacodyl 10 mg 09/28/24 11:58
Bisacodyl 10 Mg Rectal Suppository RECTAL 10/26/24 11:57
[id number] PRN
constipation
Dextrose 12.5 grams 09/29/24 19:36
Dextrose 50% (0.5 Grams/Ml) 50 Ml Syringe IV 10/27/24 19:35
[id number] PRN
hypoglycemia
Protocol
Fentanyl Citrate 50 mcg 09/28/24 15:57 10/01/24 05:01
Fentanyl (50 Mcg/Ml) 100 Mcg/2 Ml Ampul IV 10/12/24 15:56 50 mcg
[id number] PRN Administration
see protocol
Protocol
Glucagon 1 mg 09/29/24 19:36
Glucagon 1 Mg Vial IM 10/27/24 19:35
PRN PRN
hypoglycemia
Protocol
Heparin Sodium 5,000 units 09/29/24 16:00 10/01/24 08:11
Heparin 5,000 Units/Ml 1 Ml Vial SC 10/27/24 15:59 5,000 units
Q8 LIZZETTE Administration
Ampicillin Sodium/Sulbactam 120 mls @ 240 mls/hr 09/28/24 12:00 10/01/24 05:18
Sodium 3 gm/ Sodium Chloride IV 10/03/24 06:29 120 mls
Q6H LIZZETTE Administration
Propofol 1,000,000 mcg in 100 mls @ 0 mls/hr 09/28/24 16:00 09/30/24 23:24
Diprivan IV 100 mls
PER PROTOCOL LIZZETTE Administration
Protocol
Per Protocol
Norepinephrine Bitartrate 4 mg in 250 mls @ 0 mls/hr 09/30/24 04:15 09/30/24 23:42
Levophed IV 250 mls
PER PROTOCOL LIZZETTE Administration
Protocol
Per Protocol
Labetalol HCl 10 mg 09/28/24 10:19
Labetalol Hcl 5 Mg/1 Ml (20 Mg/4 Ml) Injection IV 10/26/24 10:18
Q6HPRN PRN
SBP>180 or DBP>105
Levetiracetam 750 mg 09/29/24 20:00 10/01/24 08:12
Levetiracetam (100 Mg/Ml) 500 Mg/5 Ml Vial IV 10/27/24 19:59 750 mg
Q12 LIZZETTE Administration
Lorazepam 2 mg 09/30/24 23:21 09/30/24 23:23
Lorazepam 2 Mg/Ml Vial IV 10/26/24 12:34 2 mg
Q4HPRN PRN Administration
seizures/anxiety/agitation
Ondansetron HCl 4 mg 09/28/24 11:58
Ondansetron 4 Mg/2 Ml Vial IV 10/26/24 11:57
Q8HPRN PRN
nausea and vomiting
Pantoprazole Sodium 40 mg 09/29/24 12:00 10/01/24 08:11
Pantoprazole Sodium 40 Mg/10 Ml Vial IV 10/27/24 11:59 40 mg
DAILY LIZZETTE Administration
Phenytoin Sodium 100 mg 09/29/24 10:00 10/01/24 08:12
Phenytoin (50 Mg/ Ml) 100 Mg/2 Ml Vial IV 10/27/24 09:59 100 mg
TID LIZZETTE Administration
Polyethylene Glycol 17 grams 09/28/24 11:58
Polyethylene Glycol Powder 17 Grams Packet PO 10/26/24 11:57
DAILYPRN PRN
constipation
Polyethylene Glycol 17 grams 09/29/24 08:00 10/01/24 08:11
Polyethylene Glycol Powder 17 Grams Packet TUBE 10/27/24 07:59 17 grams
DAILY LIZZETTE Administration
Senna/Docusate Sodium 1 tablet 09/28/24 11:58
Docusate W/Senna (Aurea-Colace) Tablet PO 10/26/24 11:57
BIDPRN PRN
constipation
Sodium Chloride 0 flush 09/28/24 13:00
Sodium Chloride 0.9% (Flush) Syringe IV 10/26/24 12:59
PER PROTOCOL LIZZETTE
Sodium Chloride 0 ml 09/28/24 13:00
Sodium Chloride 0.9% (Preservative Free) 10 Ml Vial IV 10/26/24 12:59
PRN PRN
IV Lorazepam dilution
Protocol
Sodium Chloride 10 ml 09/29/24 12:00 10/01/24 08:11
Sodium Chloride 0.9% (Preservative Free) 10 Ml Vial IV 10/27/24 11:59 10 ml
DAILY LIZZETTE Administration
Sodium Chloride 1 ml 09/30/24 23:25
Nss (Pf) 10 Ml Vial For Ativan 2 Mg Dose IV 10/28/24 23:24
Q4HPRN PRN
IV LORAZEPAM DILUTION
Home Medications
-
Home Medications
acetaminophen 325 mg tablet 325 mg PO BIDPRN PRN mild pain 09/28/24
amlodipine 10 mg tablet (Norvasc) 10 mg PO HS Blood Pressure 09/28/24
aripiprazole 300 mg suspension, extended rel. intramuscular syringe (Maria Elena Cano) 300 mg IM QMONTH Mental Health/Anxiety 09/28/24
benztropine 0.5 mg tablet 0.5 mg PO HS Neurological Condition 09/28/24
lisinopril 40 mg tablet 40 mg PO HS Blood Pressure 09/28/24
quetiapine 100 mg tablet (Seroquel) 100 mg PO HS Mental Health/Anxiety 09/28/24
therapeutic multivitamin 1 tab PO HS Supplement 09/28/24
--- NOTE | 2024-10-01 12:09 | PTCARENOTE ---
Pt tolerating SBT. Remains lethargic. Opens eyes but not following other simple commands. Off Propofol and levophed since about 0820. Tolerating tube feeds. Longoria draining blood tinged with clots. BP via a-line. All other assessments
unchanged. Guards at bedside.
--- NOTE | 2024-10-01 13:34 | CM ---
CM following re: discharge planning.
Reviewed pt's chart, met wit pt. Two guards at bedside.
Per Rounds meeting, pt remains intubated, continue supportive care.
Pt is from [facility] and a plan is to return back to [facility] when medically stable.
[facility] nursing report: [phone]
Discharge instructions fax: [phone]
D/C plan: return back to [facility] when medically stable.
[2024-10-01 14:57] LABS: Blood Urea Nitrogen 22 mg/dl (9-20); Calcium 7.6 mg/dl (8.4-10.2); Carbon Dioxide 29 mmol/L (22-30); Chloride 99 mmol/L (98-107); Estimated Creatinine Clearance 64 ml/min; Glucose 100 mg/dl (70-99); Potassium 4.6 mmol/L (3.5-5.1); Sodium 132 mmol/L (135-145); eGFR > 60.00
--- NOTE | 2024-10-01 15:48 | W.PN.HOSP.TC ---
Today's Communication/Plan
-
Assessment / Plan
Assessment / Plan
Gen-intubated and sedated
HEENT-NC, AT, anicteric, pupils equal
Neck-supple
CV-reg, no M, +S1/S2
Lungs-mechanical breath sounds B/L
Abd-soft, NT, ND
Musculoskeletal-mild edema bilateral upper and lower extremities, no deformity
Skin-warm and dry
Neuro-sedated, no tremor
Psych-unable to assess
59yo M with HTN, psychiatric d/o, incarcerated in [facility] brought 2/2 significant sedation, poor responsiveness and seizures with tongue biting. Found severe hyponatremia.
A/P
#Hyponatremia, severe with seizures
-most likely 2/2 psychiatric meds which are being held
-Serum sodium levels improving, currently off IV fluids
-Nephrology follow up, cont frequent BMP
-Keppra loaded in ED - will continue
-seizure precautions
#Acute hypoxic respiratory failure
-2/2 significant lethargy with hyponatremia
-Intubated on 09/28/24
-Transmissions Systems Operator for vent mgmt and sedation mgmt
#Acute metabolic encephalopathy
-most likely post-ictal abd severe hyponatremia
-Tolerated sedation vacation yesterday, will attempt again today noted to better assess mentation
-CT head without acute hemorrhage or stroke
-MRI brain when able
-Keppra/dilantin
-EEG with generalized slowness
-Ativan PRN, Propofol drip while intubated for seizures
-UDS Neg
-B12, folate WNL
#Hypothermia:
- concern for brain stem damage with hyponatremia
-Warming blanket
-TSH and cortisol WNL
#Aspiration pneumonia:
-Continue antibiotic treatment with Unasyn
#mild thrombocytopenia
-unclear reason, might be reactive. No heparin product given on admission
#Mild R to L mediastinal shift
-without signs of pneumothorax on XR
#Psychiatric d/o
-hold meds
-Evaluated by psych, recommend holding off on Seroquel at this point, will reassess when patient more awake
#Essential HTN with HTN emergency on admission
-Blood pressure labile, requiring vasopressors
-labetalol PRN
DVT ppx SCDs (with stroke w//U)
Full code
I have spent at least 58min of critical care time reviewing chart, test results, communication with cosnultants and direct patient care
Anticipated Discharge: > 48 hours
Subjective/Interval History
-
Date of Service: October 01, 2024
Mr. Zamorano was seen and examined at bedside this morning. Tolerated weaning trial yesterday well.
Objective Data
-
Labs:
Laboratory Results
10/01/24 10/01/24 10/01/24
04:44 06:17 08:00
WBC 5.9
Hgb 10.9 L
Hct 31.6 L
Plt Count 94 L
HCO3 26.5
Sodium 130 L Cancelled
Potassium 3.9 Cancelled
Chloride 99 Cancelled
Carbon Dioxide 27 Cancelled
BUN 21 H Cancelled
Creatinine 1.2 Cancelled
Glucose 124 H Cancelled
Calcium 7.9 L Cancelled
10/01/24 10/01/24 10/01/24
12:00 14:19 16:00
WBC
Hgb
Hct
Plt Count
HCO3
Sodium Cancelled 132 L Cancelled
Potassium Cancelled 4.6
Chloride Cancelled 99
Carbon Dioxide Cancelled 29
BUN Cancelled 22 H
Creatinine Cancelled 1.1
Glucose Cancelled 100 H
Calcium Cancelled 7.6 L
10/01/24 10/01/24 10/01/24
16:00 16:00 16:00
WBC
Hgb
Hct
Plt Count
HCO3
Sodium Cancelled
Potassium Cancelled Cancelled
Chloride Cancelled Cancelled
Carbon Dioxide Cancelled
BUN
Creatinine
Glucose
Calcium
10/01/24 10/01/24 10/01/24
16:00 16:00 16:00
WBC
Hgb
Hct
Plt Count
HCO3
Sodium
Potassium
Chloride
Carbon Dioxide Cancelled
BUN Cancelled Cancelled
Creatinine Cancelled Cancelled
Glucose Cancelled
Calcium
10/01/24 10/01/24 10/01/24
16:00 16:00 20:00
WBC
Hgb
Hct
Plt Count
HCO3
Sodium Cancelled
Potassium Cancelled
Chloride Cancelled
Carbon Dioxide Cancelled
BUN Cancelled
Creatinine Cancelled
Glucose Cancelled Cancelled
Calcium Cancelled Cancelled Cancelled
Vital Signs:
Vital Signs
Temp Pulse Resp BP Pulse Ox
99.6 F 70 14 133/94 100
10/01/24 14:29 10/01/24 12:00 10/01/24 12:00 10/01/24 12:00 10/01/24 15:06
I&O
09/30/24 10/01/24 10/02/24
06:59 06:59 06:59
Intake Total 4120.3 / 4212.3 887.05 / 964.65 875.2 / 875.2
Output Total 6585 / 6685 3785 / 3785 1205 / 1205
Balance -2464.7 / -2472.7 -2897.95 / -2820.35 -329.8 / -329.8
Review of Systems
-
Unable to obtain full review of systems at this time due to: Acuity
[2024-10-01] MEDS: ATIVAN 2 MG IV (16:38)
--- NOTE | 2024-10-01 18:42 | PTCARENOTE ---
Received pt at 1500, complete assessment done and documented in worklist. Propofol remains off. Pt was sl restless, ativan PRN given. Pt intubated, received on PS 8, peep 5, 35% fio2. Suctions for mod amt of thick white potter secretions. O2 pet=425%.
Updated Dr Dobbins and discussed plan for vent. Pt to rest overnight on AC vent settings and possible extubation tomorrow. Pt changed to AC 14, TV 450, peep 5, 35% at 1800. Dobhoff in place with pt receiving osmolite at 60 ml/hr ( goal rate) with no
hourly flushes. +BSs. Longoria cath draining sm to mod dark yellow urine. Core temp= 99.3. L rad tod intact with + cuff aryan. Pt turned and make comfortable.
--- NOTE | 2024-10-01 20:00 | PTCARENOTE ---
Received pt resting in bed, intubated. Responds to tactile stimuli, fluttered eyes but no sustained opening and no tracking. Does not follow commands. + cough, corneals. SIMEON. Pupils 2-3mm, sluggish B/L. Currently on no sedation, last received ativan
on dayshift. SR with BBB and PACs on tele. HR 70s-80s. L radial A line in place- transduced and zeroed. Correlating with cuff. BP 110s-130s/60s-70s. Trace LE edema. SCDs maintained. Temp 99.8 core. #8 ETT moved to center at 23cm. Tolerating A/C
14/450/+5/35%. Spo2 100%. Lungs coarse. Suctioned multiple times for mod. amt thin white/potter secretions via ETT. Mod. amt oral secretions. Mouth care provided. Dobhoff tube in place with osmo 1.2 at 60ml/hr, no h20 flush. Hypoactive bowel sounds.
Temp sensing albarran draining blood tinged urine with scant sediment/clots. R DL PICC in place. Turning q2.
[2024-10-02] VITALS (8 sets, daily range): BP systolic 94–169; BP diastolic 58–93; BMI 27.4
[2024-10-02] MEDS: UNASYN IV ×5 (00:06→23:33)
[2024-10-02] MEDS: HEPARIN 5000 UNITS SC ×4 (00:06→23:33)
[2024-10-02 00:41] LABS: Blood Urea Nitrogen 24 mg/dl (9-20); Calcium 7.7 mg/dl (8.4-10.2); Carbon Dioxide 29 mmol/L (22-30); Chloride 100 mmol/L (98-107); Estimated Creatinine Clearance 59 ml/min; Glucose 101 mg/dl (70-99); Potassium 4.6 mmol/L (3.5-5.1); Sodium 134 mmol/L (135-145); eGFR > 60.00
--- NOTE | 2024-10-02 00:42 | PTCARENOTE ---
Pt. reassessed. Received fentanyl IVP at 2130 for CPOT 5, BP dropped to 80s/40s for about 10 minutes but recovered. TEACHER VOCATIONAL TRAINING aware, no interventions. Bathed with CHG, albarran care provided. Repeat BMP drawn.
[2024-10-02] MEDS: SUBLIMAZE 50 MCG IV ×2 (04:23→06:20)
--- NOTE | 2024-10-02 04:42 | PTCARENOTE ---
Pt. reassessed. CPOT = 6 - PRN fentanyl IVP given. Repositioning PRN. ETT moved to left side. Tolerating vent settings. Large amt. oral secretions suctioned. AM labs drawn. Longoria continues with hematuria, which appears increased. DRIVER'S LICENSE REVIEWING OFFICER notified.
[2024-10-02 05:11] LABS: % Basophils 0.2 % (0-2); % Eosinophils 0.2 % (0-6); % Immature Granulocytes 0.4 % (0-0.5); % Lymphocytes 28.1 % (20.5-51.1); % Monocytes 10.5 % (1.7-9.3); % Neutrophils 60.6 % (42.2-75.2); Absolute Lymphocytes 1.3 10^3/uL (1.2-3.4); Absolute Monocytes 0.5 10^3/uL (0.1-0.6); Absolute Neutrophils 2.8 10^3/uL (1.4-6.5); Hematocrit 30.3 % (39.0-52.0); Hemoglobin 10.4 g/dL (13.0-18.0); Mean Corp Hgb Conc. 34.3 g/dL (33.0-37.0); Mean Corpuscular Hgb 29.5 pg (27.0-31.0); Mean Corpuscular Volume 86.1 fL (80.0-94.0); Mean Platelet Volume 10.7 fL (7.4-10.4); Nucleated Red Blood Cells % 0 % (-); Platelet Count 104 10^3/uL (130-400); Red Blood Cell Count 3.52 10^6/uL (4.70-6.10); White Blood Cell Count 4.7 10^3/uL (4.8-10.8)
[2024-10-02 05:26] LABS: Blood Urea Nitrogen 24 mg/dl (9-20); Calcium 7.5 mg/dl (8.4-10.2); Carbon Dioxide 30 mmol/L (22-30); Chloride 100 mmol/L (98-107); Estimated Creatinine Clearance 59 ml/min; Glucose 97 mg/dl (70-99); Magnesium 2.4 mg/dl (1.6-2.3); Potassium 4.6 mmol/L (3.5-5.1); Sodium 135 mmol/L (135-145); eGFR > 60.00
--- NOTE | 2024-10-02 06:48 | PTCARENOTE ---
When turning to reposition and change linen, pt. opened eyes but still not tracking or following commands. Appeared to be having purposeful movement as he was reaching up towards ETT/NGT. Grimacing, resistant to movement. Required fentanyl IVP for
CPOT. TVs on vent reading [id number], pt in no distress, spo2 remained 100. RT to bedside and changed flow sensor.
--- NOTE | 2024-10-02 07:43 | W.PN.INTV ---
Today's Communication / Plan
Recommendations
Finite course of antibiotics
Spontaneous breathing trial-Hope to extubate
Follow ABG
Eventual MRI brain
Slowly correct hyponatremia
Assessment
-
59-year-old non-smoking incarcerated male with a history of hypertension and psychiatric disorder presented after seizure with mental status changes found to have severe hyponatremia given 3% saline-extracorporeal technician consulted for severe hyponatremia,
seizures, critical care management 09/28/2024.
Severe hyponatremia with subsequent seizures on psychiatric medications-serum sodium 109
Status post seizure-provoked from hyponatremia
Ventilator dependent respiratory failure
Intubated 09/28/2024
Extubated
Metabolic encephalopathy
Hypothermia
Aspiration-possible pneumonia related to it-CT chest with mild secretions right side of the trachea layering dependent portion right mainstem bronchus and moderate secretions bronchus intermedius
Hypertensive emergency-blood pressure 220/133
Lactic acidosis
Right hemidiaphragm elevation-mild
Conditions present prior to admission:
Hypertension.
Psychiatric [id number] Abilify, Seroquel
Polysubstance abuse
Incarcerated.
Plan
Critically ill sedated on a ventilator
Patient intubated-ventilator settings reviewed
Pulmonary airway pressures reviewed
Attempt spontaneous breathing trial again today
Follow ABG
Hope to extubate soon
VAP prevention continues per protocol
Nebulizers if needed-currently not bronchospastic
Chest x-ray 09/29/2024-no obvious infiltrates yet
Chest x-ray 09/30/2024-no pneumothorax, no new abnormalities
Chest x-ray 10/01/2024-interval increase in the left mid to lower lung field opacifications likely from atelectasis
Follow serum sodium level closely-currently 134-slowly corrected
3% saline-cautious administration
Goal correction 4-6 mEq/liter in the first 24 hours with subsequent slow reversal
Desmopressin provided 09/29/2024-monitor hourly urine output
Monitor neurologic status closely-rapid correction can rarely leads to osmotic demyelination syndrome
Nephrology evaluation ongoing-correspondence reviewed
TSH-normal 2.85
Cortisol-random 52.8
Urine osmolarity and sodium noted-low urine osmolarity consistent with polydipsia
Neurology evaluation-correspondence reviewed
Thiamine initiated
Brain MRI with gadolinium pending-unable to obtain at this point-if extubated we will pursue
EEG 09/28/2024 without obvious seizure activity
Repeat EEG 09/29/2024 without obvious seizure activity
Repeat CT head 09/29/2024-no acute intracranial abnormalities
Keppra continues
Ativan as needed
Cultures reviewed
Sputum/tracheal aspirate 09/29/2024-Citrobacter and Pseudomonas
Empiric antibiotics-Unasyn initiated
Monitor blood pressure closely
Antihypertensives per nephrology
Nicardipine if needed
Now requiring pressors-wean norepinephrine as needed
Monitor hemoglobin-currently 10.3
Transfuse if needed
PPI
DVT prophylaxis recommended-on heparin subcu
GI prophylaxis-hypotensive on the ventilator-on pantoprazole
Nutrition-nasogastric feedings to begin 09/29/2024
Bedside range of motion
Critical care statement: A total of 40 minutes of critical care time was provided for this patient today. This includes management of unstable vital signs, evaluation of the patient at bedside, reviewing the patient's pertinent medical records
including radiographs, ventilator management, sepsis management, pressor management, microbiology, laboratory evaluations, and discussion with primary team, consultants, pharmacy, charge nurse, critical care nursing, and respiratory therapy.
Diagnostic data:
Chest x-ray 09/28/2024-mild right to left mediastinal shift, moderate elevation right hemidiaphragm
CT head 09/28/2024-no acute intracranial hemorrhage or transcortical infarct, moderate white matter leukoaraiosis in the right parietal lobe
CT head neck angiogram 09/28/2024-acute airway aspiration, no evidence for vertebral artery occlusion or dissection, no evidence for large vessel intracranial stenosis or occlusion
Subjective Dataa
Subjective Data
Date of Service:
Date of Service: October 02, 2024
Chief Complaint: Manufacturing Supervisor Follow Up, Pulmonary Follow Up and Vent Management Follow Up
Subjective:
Sedated on ventilator, no increase secretions, not overbreathing the vent
Review of Systems
General: Unobtainable - Sedation
Objective Data
Data Reviewed
Vital Signs / I&O / Oxygen:
Vital Signs
Temp Pulse Resp BP Pulse Ox
98.8 F 63 14 124/76 100
10/02/24 07:37 10/02/24 06:30 10/02/24 06:30 10/02/24 04:00 10/02/24 06:30
Intake and Output
10/01/24 10/02/24 10/03/24
06:59 06:59 06:59
Intake Total 887.05 / 964.65 1920.2 / 1920.2
Output Total 3785 / 3785 1909 / 1909
Balance -2897.95 / -2820.35 10.2 / 10.2
SaO2 [CPAP/PSV] 100
SaO2 [A/C] 100
SaO2 100
Nasal Cannula flow liters per 6
minute
Physical Exam
General: Respiratory Distress (n), Comfortable and Other (Patient sedated, and on tube feedings)
HEENT: Normocephalic, Anicteric and Other (Tongue bite wound)
Cardiovascular: Regular Rhythm
Respiratory: Non-Labored Respirations, ET Tube and Other (mechanical breath sounds)
GI: Soft, Non Distended and Normal Bowel Sounds
Neurology: No Motor Deficits and Lethargic (Sedated on the ventilator)
Skin: Warm, Good Color, Cyanosis (n), Jaundice (n) and Rash (n)
Labs/Micro/Reports
Lab Data
10/02/24 04:13
Microbiology
09/29/24 08:10 Tracheal Aspirate Respiratory Culture - Preliminary
Citrobacter youngae
Pseudomonas aeruginosa
09/29/24 08:10 Tracheal Aspirate Gram Stain - Preliminary
09/28/24 09:10 Blood/Venous Blood Culture - Preliminary
No Growth in 72 hours- Final report to follow
09/28/24 09:10 Blood/Venous Blood Culture - Preliminary
No Growth in 72 hours- Final report to follow
09/28/24 16:24 Nose MRSA Screen - Final
No Methicillin Resistant Staphylococcus aureus isolated.
--- NOTE | 2024-10-02 08:00 | PTCARENOTE ---
Addendum entered by Sara Ruff RN 10/02/24 15:47:
+ bl nystagmus noted
Original Note:
Received pt with eyes closed.Eyes open briefly to voice.Followed simple command to stick out his tongue.+ 4/5 SIMEON noted.No seizure activity noted.SR with 1st degree AVB,BBB and occasional PAC noted.Left A Line intact.Right PICC intact.# 8 ETT to
vent.Coarse breath sounds throughout.Suctioned for large amount thick potter secretions.POX 97%Dobbhoff intact with tube feeds as ordered.No BM.Longoria draining punch colored urine.Skin integrity as documented.RT attempted to SBT x 2 with subsequent
apnea noted. made aware.
[2024-10-02] MEDS: DILANTIN 100 MG IV ×3 (09:17→21:28)
[2024-10-02] MEDS: KEPPRA 750 MG IV ×2 (09:18→19:37)
[2024-10-02] MEDS: PROTONIX IV 40 MG IV (09:19)
[2024-10-02] MEDS: NSS (PRESERVATIVE FREE) 10 ML IV (09:19)
[2024-10-02] MEDS: MIRALAX 17 GRAMS TUBE (09:19)
--- NOTE | 2024-10-02 09:54 | W.PN.UPDATE ---
Update Note
Progress Note Update
patient remains intubated and unable to engage in talking. psych will sign off for now . please call us when we would be able to assess for psych sx and need to restart psychotropic medication.
--- NOTE | 2024-10-02 10:18 | W.PN.NEURO.1 ---
Today's Communication / Plan
-
.
Subjective/Objective
Subjective Data
Date of Service: October 02, 2024
Neurology follow-up note.
24-hour events: Transient hypotension down to 91/65 on 10/01/2024 at 17:34.
MAR: Lorazepam 2 mg administered on 10/01/24 at 16:38.
Labs: Na-134.
No recurrent seizures
PMH: polysubstance addiction, HTN, psychotic DO, NOS
PSH: unknown
SH: active inmate at [facility]
FH: Unknown
All: Haloperidol
ROS: unable
General: Intubated, restrained
Cardio: Regular rate and rhythm. Extremities are without cyanosis or edema.
Neuro:
Mental Status: Opens eyes to tactile stimuli. Does not attend. Follows complex requests on the left
Cranial Nerves: Orthophoric primary gaze, pupils 2 mm, nonreactive. Positive gag, corneals.
Motor: Moves left arm and both legs antigravity, some movements within bed plane in the right upper extremity.
Reflexes: Limited exam due to restraints. No clonus.
Sensory: Grimaces to noxious stimuli.
Coordination: No tremors myoclonic movements
Gait: deferred
Assessment and Plan:
I. Likely provoked seizures from severe hyponatremia
II. Multifactorial encephalopathy (metabolic, toxic), significantly improved.
III. Severe hyponatremia resolved
-Aspiration and seizure precautions.
-Continue Keppra 750 mg every 12 hours and reduce phenytoin to 100 mg every 12 hours
-Continue thiamine
-Brain MRI wo iraida
-DVT prophylaxis.
I personally reviewed all radiology and labs along with past medical records pertinent to current medical problems. Total time spent in patient care is 35 minutes.
Thank you for allowing us to participate in the care of this patient. We will continue to follow. Please do not hesitate to contact us with any questions or concerns
Objective Data
Vital Signs
Temp Pulse Resp BP Pulse Ox
35.6 C L 66 15 130/81 100
10/01/24 08:57 10/01/24 10:15 10/01/24 10:15 10/01/24 08:00 10/01/24 10:59
Lab Results
10/01/24 04:44
10/01/24 20:00
PT 14.3 Sec (11.4-14.6) 09/28/24 07:57
INR 1.08 09/28/24 07:57
APTT 29.3 Sec (23.4-35.0) 09/28/24 07:57
Sodium Cancelled 10/01/24 20:00
Potassium Cancelled 10/01/24 20:00
BUN Cancelled 10/01/24 20:00
Glucose Cancelled 10/01/24 20:00
Calcium Cancelled 10/01/24 20:00
Phosphorus 3.2 mg/dl (2.5-4.5) 09/30/24 03:05
Phosphorus Cancelled 09/30/24 03:05
Whole Bld Vitamin B1 104 nmol/L (70-180) 09/28/24 10:53
Vitamin B12 556 pg/ml (239-931) 09/28/24 07:57
Ur Buprenorphine Cancelled 09/28/24 13:22
Ur Buprenorphine Negative (Negative) 09/28/24 13:22
Patient Allergies
haloperidol [From Haldol] Allergy (Verified 09/28/24 07:45)
Unknown
Vital Signs and Labs
-
Vital Signs and Labs:
Vital Signs
Temp Pulse Resp BP Pulse Ox
35.6 C L 66 15 130/81 100
10/01/24 08:57 10/01/24 10:15 10/01/24 10:15 10/01/24 08:00 10/01/24 10:59
Lab Results
10/01/24 04:44
10/01/24 20:00
PT 14.3 Sec (11.4-14.6) 09/28/24 07:57
INR 1.08 09/28/24 07:57
APTT 29.3 Sec (23.4-35.0) 09/28/24 07:57
Sodium Cancelled 10/01/24 20:00
Potassium Cancelled 10/01/24 20:00
BUN Cancelled 10/01/24 20:00
Glucose Cancelled 10/01/24 20:00
Calcium Cancelled 10/01/24 20:00
Phosphorus 3.2 mg/dl (2.5-4.5) 09/30/24 03:05
Phosphorus Cancelled 09/30/24 03:05
Whole Bld Vitamin B1 104 nmol/L (70-180) 09/28/24 10:53
Vitamin B12 556 pg/ml (239-931) 09/28/24 07:57
Ur Buprenorphine Cancelled 09/28/24 13:22
Ur Buprenorphine Negative (Negative) 09/28/24 13:22
Medications
-
Medications:
Generic Name Dose Route Start Last Admin
Trade Name Freq PRN Reason Stop Dose Admin
Acetaminophen 650 mg 09/28/24 11:58
Acetaminophen 325 Mg Tablet PO 10/26/24 11:57
Q4HPRN PRN
mild pain/OLIVEROS/temp> 100.4F
Atropine Sulfate 0 drop 09/28/24 17:08 09/30/24 09:20
Atropine Sulfate 1% (Ophthalmic Drops) Droptainer SL 10/26/24 17:07 2 drop
Q4HPRN PRN Administration
excess oral secretions
Bisacodyl 10 mg 09/28/24 11:58
Bisacodyl 10 Mg Rectal Suppository RECTAL 10/26/24 11:57
[id number] PRN
constipation
Dextrose 12.5 grams 09/29/24 19:36
Dextrose 50% (0.5 Grams/Ml) 50 Ml Syringe IV 10/27/24 19:35
[id number] PRN
hypoglycemia
Protocol
Fentanyl Citrate 50 mcg 09/28/24 15:57 10/01/24 05:01
Fentanyl (50 Mcg/Ml) 100 Mcg/2 Ml Ampul IV 10/12/24 15:56 50 mcg
[id number] PRN Administration
see protocol
Protocol
Glucagon 1 mg 09/29/24 19:36
Glucagon 1 Mg Vial IM 10/27/24 19:35
PRN PRN
hypoglycemia
Protocol
Heparin Sodium 5,000 units 09/29/24 16:00 10/01/24 08:11
Heparin 5,000 Units/Ml 1 Ml Vial SC 10/27/24 15:59 5,000 units
Q8 LIZZETTE Administration
Ampicillin Sodium/Sulbactam 120 mls @ 240 mls/hr 09/28/24 12:00 10/01/24 05:18
Sodium 3 gm/ Sodium Chloride IV 10/03/24 06:29 120 mls
Q6H LIZZETTE Administration
Propofol 1,000,000 mcg in 100 mls @ 0 mls/hr 09/28/24 16:00 09/30/24 23:24
Diprivan IV 100 mls
PER PROTOCOL LIZZETTE Administration
Protocol
Per Protocol
Norepinephrine Bitartrate 4 mg in 250 mls @ 0 mls/hr 09/30/24 04:15 09/30/24 23:42
Levophed IV 250 mls
PER PROTOCOL LIZZETTE Administration
Protocol
Per Protocol
Labetalol HCl 10 mg 09/28/24 10:19
Labetalol Hcl 5 Mg/1 Ml (20 Mg/4 Ml) Injection IV 10/26/24 10:18
Q6HPRN PRN
SBP>180 or DBP>105
Levetiracetam 750 mg 09/29/24 20:00 10/01/24 08:12
Levetiracetam (100 Mg/Ml) 500 Mg/5 Ml Vial IV 10/27/24 19:59 750 mg
Q12 LIZZETTE Administration
Lorazepam 2 mg 09/30/24 23:21 09/30/24 23:23
Lorazepam 2 Mg/Ml Vial IV 10/26/24 12:34 2 mg
Q4HPRN PRN Administration
seizures/anxiety/agitation
Ondansetron HCl 4 mg 09/28/24 11:58
Ondansetron 4 Mg/2 Ml Vial IV 10/26/24 11:57
Q8HPRN PRN
nausea and vomiting
Pantoprazole Sodium 40 mg 09/29/24 12:00 10/01/24 08:11
Pantoprazole Sodium 40 Mg/10 Ml Vial IV 10/27/24 11:59 40 mg
DAILY LIZZETTE Administration
Phenytoin Sodium 100 mg 09/29/24 10:00 10/01/24 08:12
Phenytoin (50 Mg/ Ml) 100 Mg/2 Ml Vial IV 10/27/24 09:59 100 mg
TID LIZZETTE Administration
Polyethylene Glycol 17 grams 09/28/24 11:58
Polyethylene Glycol Powder 17 Grams Packet PO 10/26/24 11:57
DAILYPRN PRN
constipation
Polyethylene Glycol 17 grams 09/29/24 08:00 10/01/24 08:11
Polyethylene Glycol Powder 17 Grams Packet TUBE 10/27/24 07:59 17 grams
DAILY LIZZETTE Administration
Senna/Docusate Sodium 1 tablet 09/28/24 11:58
Docusate W/Senna (Aurea-Colace) Tablet PO 10/26/24 11:57
BIDPRN PRN
constipation
Sodium Chloride 0 flush 09/28/24 13:00
Sodium Chloride 0.9% (Flush) Syringe IV 10/26/24 12:59
PER PROTOCOL LIZZETTE
Sodium Chloride 0 ml 09/28/24 13:00
Sodium Chloride 0.9% (Preservative Free) 10 Ml Vial IV 10/26/24 12:59
PRN PRN
IV Lorazepam dilution
Protocol
Sodium Chloride 10 ml 09/29/24 12:00 10/01/24 08:11
Sodium Chloride 0.9% (Preservative Free) 10 Ml Vial IV 10/27/24 11:59 10 ml
DAILY LIZZETTE Administration
Sodium Chloride 1 ml 09/30/24 23:25
Nss (Pf) 10 Ml Vial For Ativan 2 Mg Dose IV 10/28/24 23:24
Q4HPRN PRN
IV LORAZEPAM DILUTION
Home Medications
-
Home Medications
acetaminophen 325 mg tablet 325 mg PO BIDPRN PRN mild pain 09/28/24
amlodipine 10 mg tablet (Norvasc) 10 mg PO HS Blood Pressure 09/28/24
aripiprazole 300 mg suspension, extended rel. intramuscular syringe (Abiliderek Maintena) 300 mg IM QMONTH Mental Health/Anxiety 09/28/24
benztropine 0.5 mg tablet 0.5 mg PO HS Neurological Condition 09/28/24
lisinopril 40 mg tablet 40 mg PO HS Blood Pressure 09/28/24
quetiapine 100 mg tablet (Seroquel) 100 mg PO HS Mental Health/Anxiety 09/28/24
therapeutic multivitamin 1 tab PO HS Supplement 09/28/24
Dictated By: Monique Rice MD
Dictated Date & Time: 10/01/241141
Co-Signer:
Co-Sign Date & Time:
Signed By: Monique Rice MD
Signed Date & Time: 10/01/24 1146
<<Signature on File>>
Dictation Date/Time: 10/01/241141
Granulator Machine Operator Date/Time: 10/01/241141
Transcribed By: GONZALO
cc:
Objective Data
Vital Signs
Temp Pulse Resp BP Pulse Ox
37.1 C 63 14 124/76 100
10/02/24 07:37 10/02/24 06:30 10/02/24 06:30 10/02/24 04:00 10/02/24 07:49
Lab Results
10/02/24 04:13
PT 14.3 Sec (11.4-14.6) 09/28/24 07:57
INR 1.08 09/28/24 07:57
APTT 29.3 Sec (23.4-35.0) 09/28/24 07:57
Sodium 135 mmol/L (135-145) 10/02/24 04:13
Potassium 4.6 mmol/L (3.5-5.1) 10/02/24 04:13
BUN 24 mg/dl (9-20) H 10/02/24 04:13
Glucose 97 mg/dl (70-99) 10/02/24 04:13
Calcium 7.5 mg/dl (8.4-10.2) L 10/02/24 04:13
Phosphorus 3.2 mg/dl (2.5-4.5) 09/30/24 03:05
Phosphorus Cancelled 09/30/24 03:05
Whole Bld Vitamin B1 104 nmol/L (70-180) 09/28/24 10:53
Vitamin B12 556 pg/ml (239-931) 09/28/24 07:57
Ur Buprenorphine Cancelled 09/28/24 13:22
Ur Buprenorphine Negative (Negative) 09/28/24 13:22
Patient Allergies
haloperidol [From Haldol] Allergy (Verified 09/28/24 07:45)
Unknown
Vital Signs and Labs
-
Vital Signs and Labs:
Vital Signs
Temp Pulse Resp BP Pulse Ox
37.1 C 63 14 124/76 100
10/02/24 07:37 10/02/24 06:30 10/02/24 06:30 10/02/24 04:00 10/02/24 07:49
Lab Results
10/02/24 04:13
PT 14.3 Sec (11.4-14.6) 09/28/24 07:57
INR 1.08 09/28/24 07:57
APTT 29.3 Sec (23.4-35.0) 09/28/24 07:57
Sodium 135 mmol/L (135-145) 10/02/24 04:13
Potassium 4.6 mmol/L (3.5-5.1) 10/02/24 04:13
BUN 24 mg/dl (9-20) H 10/02/24 04:13
Glucose 97 mg/dl (70-99) 10/02/24 04:13
Calcium 7.5 mg/dl (8.4-10.2) L 10/02/24 04:13
Phosphorus 3.2 mg/dl (2.5-4.5) 09/30/24 03:05
Phosphorus Cancelled 09/30/24 03:05
Whole Bld Vitamin B1 104 nmol/L (70-180) 09/28/24 10:53
Vitamin B12 556 pg/ml (239-931) 09/28/24 07:57
Ur Buprenorphine Cancelled 09/28/24 13:22
Ur Buprenorphine Negative (Negative) 09/28/24 13:22
Medications
-
Medications:
Generic Name Dose Route Start Last Admin
Trade Name Freq PRN Reason Stop Dose Admin
Acetaminophen 650 mg 09/28/24 11:58
Acetaminophen 325 Mg Tablet PO 10/26/24 11:57
Q4HPRN PRN
mild pain/OLIVEROS/temp> 100.4F
Atropine Sulfate 0 drop 09/28/24 17:08 09/30/24 09:20
Atropine Sulfate 1% (Ophthalmic Drops) Droptainer SL 10/26/24 17:07 2 drop
Q4HPRN PRN Administration
excess oral secretions
Bisacodyl 10 mg 09/28/24 11:58
Bisacodyl 10 Mg Rectal Suppository RECTAL 10/26/24 11:57
[id number] PRN
constipation
Dextrose 12.5 grams 09/29/24 19:36
Dextrose 50% (0.5 Grams/Ml) 50 Ml Syringe IV 10/27/24 19:35
[id number] PRN
hypoglycemia
Protocol
Fentanyl Citrate 50 mcg 09/28/24 15:57 10/02/24 06:20
Fentanyl (50 Mcg/Ml) 100 Mcg/2 Ml Ampul IV 10/12/24 15:56 50 mcg
[id number] PRN Administration
see protocol
Protocol
Glucagon 1 mg 09/29/24 19:36
Glucagon 1 Mg Vial IM 10/27/24 19:35
PRN PRN
hypoglycemia
Protocol
Heparin Sodium 5,000 units 09/29/24 16:00 10/02/24 09:18
Heparin 5,000 Units/Ml 1 Ml Vial SC 10/27/24 15:59 5,000 units
Q8 LIZZETTE Administration
Ampicillin Sodium/Sulbactam 120 mls @ 240 mls/hr 09/28/24 12:00 10/02/24 06:25
Sodium 3 gm/ Sodium Chloride IV 10/03/24 06:29 120 mls
Q6H LIZZETTE Administration
Labetalol HCl 10 mg 09/28/24 10:19
Labetalol Hcl 5 Mg/1 Ml (20 Mg/4 Ml) Injection IV 10/26/24 10:18
Q6HPRN PRN
SBP>180 or DBP>105
Levetiracetam 750 mg 09/29/24 20:00 10/02/24 09:18
Levetiracetam (100 Mg/Ml) 500 Mg/5 Ml Vial IV 10/27/24 19:59 750 mg
Q12 LIZZETTE Administration
Lorazepam 2 mg 09/30/24 23:21 10/01/24 16:38
Lorazepam 2 Mg/Ml Vial IV 10/26/24 12:34 2 mg
Q4HPRN PRN Administration
seizures/anxiety/agitation
Ondansetron HCl 4 mg 09/28/24 11:58
Ondansetron 4 Mg/2 Ml Vial IV 10/26/24 11:57
Q8HPRN PRN
nausea and vomiting
Pantoprazole Sodium 40 mg 09/29/24 12:00 10/02/24 09:19
Pantoprazole Sodium 40 Mg/10 Ml Vial IV 10/27/24 11:59 40 mg
DAILY LIZZETTE Administration
Phenytoin Sodium 100 mg 09/29/24 10:00 10/02/24 09:17
Phenytoin (50 Mg/ Ml) 100 Mg/2 Ml Vial IV 10/27/24 09:59 100 mg
TID LIZZETTE Administration
Polyethylene Glycol 17 grams 09/28/24 11:58
Polyethylene Glycol Powder 17 Grams Packet PO 10/26/24 11:57
DAILYPRN PRN
constipation
Polyethylene Glycol 17 grams 09/29/24 08:00 10/02/24 09:19
Polyethylene Glycol Powder 17 Grams Packet TUBE 10/27/24 07:59 17 grams
DAILY LIZZETTE Administration
Senna/Docusate Sodium 1 tablet 09/28/24 11:58
Docusate W/Senna (Aurea-Colace) Tablet PO 10/26/24 11:57
BIDPRN PRN
constipation
Sodium Chloride 0 flush 09/28/24 13:00
Sodium Chloride 0.9% (Flush) Syringe IV 10/26/24 12:59
PER PROTOCOL LIZZETTE
Sodium Chloride 0 ml 09/28/24 13:00
Sodium Chloride 0.9% (Preservative Free) 10 Ml Vial IV 10/26/24 12:59
PRN PRN
IV Lorazepam dilution
Protocol
Sodium Chloride 10 ml 09/29/24 12:00 10/02/24 09:19
Sodium Chloride 0.9% (Preservative Free) 10 Ml Vial IV 10/27/24 11:59 10 ml
DAILY LIZZETTE Administration
Sodium Chloride 1 ml 09/30/24 23:25
Nss (Pf) 10 Ml Vial For Ativan 2 Mg Dose IV 10/28/24 23:24
Q4HPRN PRN
IV LORAZEPAM DILUTION
Home Medications
-
Home Medications
acetaminophen 325 mg tablet 325 mg PO BIDPRN PRN mild pain 09/28/24
amlodipine 10 mg tablet (Norvasc) 10 mg PO HS Blood Pressure 09/28/24
aripiprazole 300 mg suspension, extended rel. intramuscular syringe (Maria Elena Cano) 300 mg IM QMONTH Mental Health/Anxiety 09/28/24
benztropine 0.5 mg tablet 0.5 mg PO HS Neurological Condition 09/28/24
lisinopril 40 mg tablet 40 mg PO HS Blood Pressure 09/28/24
quetiapine 100 mg tablet (Seroquel) 100 mg PO HS Mental Health/Anxiety 09/28/24
therapeutic multivitamin 1 tab PO HS Supplement 09/28/24
--- NOTE | 2024-10-02 10:30 | PTCARENOTE ---
AC decreased to 10 as per MD order.
--- NOTE | 2024-10-02 10:56 | W.PN.INTV ---
Documented by User: Karel Henderson MD, Resident 10/02/24 11:35
Today's Communication / Plan
Recommendations
Goal for today is to wean off ventilator
Monitor sodium levels
Monitor temperature
Observe for any further hematuria episodes
Assessment
-
Impression
Patient is a 59-year-old male coming from detention,with past medical history of polysubstance use disorder, essential hypertension, and psychiatric disorder who was brought to the emergency after seizures associated with tongue bite and change in
mental status.
Requiring ICU for symptomatic hyponatremia,hypothermia and vent needs.
Suspicion of Arginine vasopressin deficiency given patient's response to desmopressin.
Brainstem damage??
Assessment
Hyponatremia
Hypothermia
Arginine vasopressor deficiency?
Multifactorial encephalopathy sec to sepsis/brainstem damage?/Hyponatremia
Aspiration event -CT chest with mild secretions right side of the trachea layering dependent portion right mainstem bronchus and moderate secretions bronchus intermedius
Hypertensive emergency with evident endorgan damage
Plan
Severe symptomatic hyponatremia-Improving/Arginine vasopressor deficiency?
Patient's sodium levels were 109 on admission,corrected appropirately by 4-6meq in first 24 hrs
Started to rise more aggressively t0 121 and then 125 next day
Nephrology consult appreciated-Shifted from 0.9% NS to half normal saline and is now on 5% dextrose water to help with stabilizing sodium levels
[id number]
Workup showed,Dec serum osm(275),dec urine osm (95), dec urinary sodium suggesting water intoxication,continue to follow-up with Nephrology
Urine output stabilized now
No further vasopressin was needed
Following serum sodium levels closely
Oa=803 today
BMP every 8 hours
Mechanical ventilation
Patient is on ventilator
Results from tracheal aspirate show Pseudomonas-based on clinical correlation-will hold on starting antibiotics for Pseudomonas at this time
Give sedation breaks and work way towards Spontaneous breathing trials
on SBT,episodes of apnea-decreased respiratory rate and wean off ventilator
Required Lorazepam 2 mg 10/01/24 at 16:38 but is off sedation and vasopressors
Hypothermia
Maintaining core temperature in-----off bear hugger-continue temperature charting
TSH and serum cortisol within normal limits
Total leukocyte count within normal limits
Hypothermia with hyponatremia and fluctuating blood pressures,altered mental status-brainstem damage?
Empiric Unasyn started-5th day today,stop after the 5th dose
Blood cultures shows no growth
Multifactorial encephalopathy sec to sepsis/brainstem damage?/Hyponatremia
No prior history of seizures
Hyponatremia,hypothermia,polyuria responsive to vasopressin,pinpoint pupils----brainstem involvement?
CT scan of head-mild white matter leukoaraiosis
CTA neck-bilateral severe tortuousity of internal carotid arteries
Brain MRI with gadolinium pending-Will do when able
EEG 09/28-an abnormal EEG recorded in altered mental status due to a moderate-to severe generalized slowing. This finding indicates diffuse cerebral dysfunction, nonspecific in terms of etiology.�
09/29-generalized slowing, excessive beta activity and intermittent attenuation with no epileptiform abnormalities.
CK2 298, sodium�114,B12, folate WNL,UDS Neg
Neuro consult apprec-Aspiration and seizure precautions.Continue keppra,phenytin and thiamine
Hypertensive emergency
Blood pressure was running high with a peak of 225/113 on admission
On labetalol PRN
Patient required vasopressors in ICU,off vasopressors now
EKG shows poor progression of R-wave and fulfills LVH criteria,Non urgent echocardiography
Echo10/01/2024-Normal LVEF,Normal RVSF,Pleural effusion present
Other medical conditions
Essential hypertension.
Unknown psychiatric disorder-on Abilify and Seroquel
Polysubstance abuse
Incarcerated.
Nutrition consult appreciated-On tube feeds 60ml/hr(osmolite1.2)
No prior history of cardiac disease, EKG done in ER shows QT interval of 448 ms
On Ventilator,with vent settings,rate 10,Vt 450,peep5,Fio2 35
Full code
DVT prophylaxis sequential compression devices and heparin 8 hourly
Subjective Dataa
Subjective Data
Date of Service:
Date of Service: October 02, 2024
Chief Complaint: Medical Records Coordinator Follow Up, Pulmonary Follow Up and Vent Management Follow Up
Subjective:
Patient grimacing and minimally responsive,and having apnea spells on SBT trial, patient had a hematuria episode, continue to monitor
Review of Systems
General: Other (Reviewed and negative)
Objective Data
Data Reviewed
Vital Signs / I&O / Oxygen:
Vital Signs
Temp Pulse Resp BP Pulse Ox
98.8 F 63 14 124/76 100
10/02/24 07:37 10/02/24 06:30 10/02/24 06:30 10/02/24 04:00 10/02/24 10:36
Intake and Output
10/01/24 10/02/24 10/03/24
06:59 06:59 06:59
Intake Total 887.05 / 964.65 1920.2 / 1920.2
Output Total 3785 / 3785 1909 / 1909
Balance -2897.95 / -2820.35 10.2 / 10.2
SaO2 [CPAP/PSV] 100
SaO2 [A/C] 100
SaO2 100
Nasal Cannula flow liters per 6
minute
Physical Exam
General: Comfortable and Other (Patient minimally responsive, and on tube feedings)
HEENT: Normocephalic, Anicteric and Other (Tongue bite wound)
Cardiovascular: S1-S2, Regular Rhythm and Other (No rubs or murmurs)
Respiratory: Clear, Non-Labored Respirations, ET Tube and Other (mechanical breath sounds bilaterally)
GI: Soft, Non Distended and Normal Bowel Sounds
Neurology: Awake, Alert, No Motor Deficits and Lethargic (On mechanical ventilation)
Skin: Warm and Good Color
Labs/Micro/Reports
Lab Data
10/02/24 04:13
Microbiology
09/28/24 09:10 Blood/Venous Blood Culture - Preliminary
No Growth in 4 days- Final report to follow
09/28/24 09:10 Blood/Venous Blood Culture - Preliminary
No Growth in 4 days- Final report to follow
09/29/24 08:10 Tracheal Aspirate Respiratory Culture - Final
Citrobacter youngae
Pseudomonas aeruginosa
09/29/24 08:10 Tracheal Aspirate Gram Stain - Final
09/28/24 16:24 Nose MRSA Screen - Final
No Methicillin Resistant Staphylococcus aureus isolated.

Documented by User: Alin Dobbins MD 10/02/24 13:21
Assessment
-
Impression
Patient is a 59-year-old male coming from detention,with past medical history of polysubstance use disorder, essential hypertension, and psychiatric disorder who was brought to the emergency after seizures associated with tongue bite and change in
mental status.
Requiring ICU for symptomatic hyponatremia,hypothermia and vent needs.
Suspicion of Arginine vasopressin deficiency given patient's response to desmopressin.
Brainstem damage??
Assessment
Hyponatremia
Hypothermia
Arginine vasopressor deficiency?
Multifactorial encephalopathy sec to sepsis/brainstem damage?/Hyponatremia
Aspiration event -CT chest with mild secretions right side of the trachea layering dependent portion right mainstem bronchus and moderate secretions bronchus intermedius
Hypertensive emergency with evident endorgan damage
Plan
Severe symptomatic hyponatremia-Improving/Arginine vasopressor deficiency?
Patient's sodium levels were 109 on admission,corrected appropirately by 4-6meq in first 24 hrs
Started to rise more aggressively t0 121 and then 125 next day
Nephrology consult appreciated-Shifted from 0.9% NS to half normal saline and is now on 5% dextrose water to help with stabilizing sodium levels
[id number]
Workup showed,Dec serum osm(275),dec urine osm (95), dec urinary sodium suggesting water intoxication,continue to follow-up with Nephrology
Urine output stabilized now
No further vasopressin was needed
Following serum sodium levels closely
Gn=861 today
BMP every 8 hours
Mechanical ventilation
Patient is on ventilator
Results from tracheal aspirate show Pseudomonas-based on clinical correlation-will hold on starting antibiotics for Pseudomonas at this time
Give sedation breaks and work way towards Spontaneous breathing trials
on SBT,episodes of apnea-decreased respiratory rate and wean off ventilator
Required Lorazepam 2 mg 10/01/24 at 16:38 but is off sedation and vasopressors
Hypothermia
Maintaining core temperature in-----off bear hugger-continue temperature charting
TSH and serum cortisol within normal limits
Total leukocyte count within normal limits
Hypothermia with hyponatremia and fluctuating blood pressures,altered mental status-brainstem damage?
Empiric Unasyn started-5th day today,stop after the 5th dose
Blood cultures shows no growth
Multifactorial encephalopathy sec to sepsis/brainstem damage?/Hyponatremia
No prior history of seizures
Hyponatremia,hypothermia,polyuria responsive to vasopressin,pinpoint pupils----brainstem involvement?
CT scan of head-mild white matter leukoaraiosis
CTA neck-bilateral severe tortuousity of internal carotid arteries
Brain MRI with gadolinium pending-Will do when able
EEG 09/28-an abnormal EEG recorded in altered mental status due to a moderate-to severe generalized slowing. This finding indicates diffuse cerebral dysfunction, nonspecific in terms of etiology.�
09/29-generalized slowing, excessive beta activity and intermittent attenuation with no epileptiform abnormalities.
CK2 298, sodium�114,B12, folate WNL,UDS Neg
Neuro consult apprec-Aspiration and seizure precautions.Continue keppra,phenytin and thiamine
Hypertensive emergency
Blood pressure was running high with a peak of 225/113 on admission
On labetalol PRN
Patient required vasopressors in ICU,off vasopressors now
EKG shows poor progression of R-wave and fulfills LVH criteria,Non urgent echocardiography
Echo10/01/2024-Normal LVEF,Normal RVSF,Pleural effusion present
Other medical conditions
Essential hypertension.
Unknown psychiatric disorder-on Abilify and Seroquel
Polysubstance abuse
Incarcerated.
Nutrition consult appreciated-On tube feeds 60ml/hr(osmolite1.2)
No prior history of cardiac disease, EKG done in ER shows QT interval of 448 ms
On Ventilator,with vent settings,rate 10,Vt 450,peep5,Fio2 35
Full code
DVT prophylaxis sequential compression devices and heparin 8 hourly
I reviewed this patients case independently and in conjunction with the resident. I personally examined the patient. Patient's complex medical history, laboratory evaluations, events over the last 24 hours, radiographs, microbiological data were
all personally reviewed.
Agree with documented assessment and plan
Alin Dobbins MD, FCCP, OREN
--- NOTE | 2024-10-02 12:00 | PTCARENOTE ---
Pt assessed.No change in assessment noted.
--- NOTE | 2024-10-02 12:10 | W.PN.NEPH.PH ---
Today's Communication / Plan
-
Signed off
Assessment/Plan
-
59-year-old male presents emergency department due to altered mental status. He was last seen last night. Upon arrival he had a seizure In the emergency room. [facility]. Patient is verbally unresponsive does respond to
tactile stimuli as he is likely postictal. Unable to get history secondary to patient's mental status although he is on multiple antipsychotic medications including Seroquel and Abilify
Found to have a sodium of 115 renal consult for sodium of 115
Impression:
Hyponatremia 115 decreased down to 109 on admission
Status post seizure
Psychiatric history
Hypothermic
Plan:
Longoria catheter. ~3500cc
Now on tube feeds no free water flush
Every 8hr BMP
Strict monitoring of urine output to avoid overcorrection greater than 4-6 mill equivalents in first 24 hours.
Following serum sodium levels closely
Low urine osmolality of 95 consistent with polydipsia
Patient critically ill with rapid fluctuating serum sodium levelsm hemodynamic instability and remains intubated
Electrolytes within normal limits I will sign off
-
-
Date of Service: October 02, 2024
CC / HPI / ROS
-
Chief Complaint:
Altered mental status and hypotension presenting with
History of Present Illness:
Electrolytes normalized
Review of Systems:
Nonoliguric >3.5 liters
Unobtainable
Intubated
Labs
-
Labs:
WBC 4.7 10^3/uL (4.8-10.8) L 10/02/24 04:13
RBC 3.52 10^6/uL (4.70-6.10) L 10/02/24 04:13
Hgb 10.4 g/dL (13.0-18.0) L 10/02/24 04:13
Hct 30.3 % (39.0-52.0) L 10/02/24 04:13
Plt Count 104 10^3/uL (130-400) L 10/02/24 04:13
eGFR > 60.00 10/02/24 04:13
Phosphorus 3.2 mg/dl (2.5-4.5) 09/30/24 03:05
Phosphorus Cancelled 09/30/24 03:05
Albumin 3.1 g/dl (3.5-5.0) L 09/29/24 04:23
Physical Exam
-
Vital Signs:
Vital Signs
Temp Pulse Resp BP Pulse Ox
98.8 F 63 14 124/76 100
10/02/24 11:21 10/02/24 06:30 10/02/24 06:30 10/02/24 04:00 10/02/24 10:36
Cardiovascular:: Regular rate and rhythm
Respiratory:: Bilateral: Coarse
Abdomen:: Soft
Bowel Sounds:: Normal
Extremity Edema:: None: Bilateral:
Longoria Catheter: Yes
Other Findings::
General intubated ,sedated
--- NOTE | 2024-10-02 13:40 | CM ---
CM following re: discharge planning.
Reviewed pt's chart, met wit pt. Two guards at bedside.
Per Rounds meeting, pt remains intubated, continue supportive care.
Pt is from [facility] and a plan is to return back to [facility] when medically stable.
[facility] nursing report: [phone]
Discharge instructions fax: [phone]
D/C plan: return back to [facility] when medically stable.
--- NOTE | 2024-10-02 15:45 | W.PN.HOSP.TC ---
Today's Communication/Plan
-
Assessment / Plan
Assessment / Plan
Gen-intubated and somnolent
HEENT-NC, AT, anicteric, pupils equal
Neck-supple
CV-reg, no M, +S1/S2
Lungs-mechanical breath sounds B/L
Abd-soft, NT, ND
Musculoskeletal-mild edema bilateral upper and lower extremities, no deformity
Skin-warm and dry
Neuro-somnolent, responds to noxious stimuli, no tremor
Psych-unable to assess
59yo M with HTN, psychiatric d/o, incarcerated in [facility] brought 2/2 significant sedation, poor responsiveness and seizures with tongue biting. Found severe hyponatremia.
A/P
#Hyponatremia, severe with seizures
-most likely 2/2 psychiatric meds which are being held
-Serum sodium levels improving, currently 135, off IV fluids
-Nephrology signed off
-Keppra loaded in ED - will continue
-seizure precautions
#Acute hypoxic respiratory failure
-2/2 significant lethargy with hyponatremia
-Intubated on 09/28/24, respiratory status appears to be improving, will continue weaning trials
-Circuit Board Assembler for vent mgmt and sedation mgmt
#Acute metabolic encephalopathy
-most likely due to post-ictal state and severe hyponatremia
-Now off sedation and following simple commands
-CT head without acute hemorrhage or stroke
-MRI brain when able
-Keppra/dilantin
-EEG with generalized slowness
-Ativan PRN
-UDS Neg
-B12, folate WNL
#Hypothermia:
- concern for brain stem damage with hyponatremia
-Improving, discontinued warming blanket
-TSH and cortisol WNL
#Aspiration pneumonia:
-Continue antibiotic treatment with Unasyn
#mild thrombocytopenia
-unclear reason, might be reactive. No heparin product given on admission
#Mild R to L mediastinal shift
-without signs of pneumothorax on XR
#Psychiatric d/o
-hold meds
-Evaluated by psych, recommend holding off on Seroquel at this point, will reassess when patient more awake
#Essential HTN with HTN emergency on admission
-Blood pressure improving, now off vasopressors
DVT ppx SCDs (with stroke w//U)
Full code
I have spent at least 58min of critical care time reviewing chart, test results, communication with cosnultants and direct patient care
Anticipated Discharge: > 48 hours
Subjective/Interval History
-
Date of Service: October 02, 2024
Mr. Zamorano was seen and examined at bedside this morning. He is off vasopressors. He is still mechanically ventilated but off sedation. He has been opening his eyes and following simple commands.
Objective Data
-
Labs:
Laboratory Results
10/02/24 10/02/24
04:13 15:39
WBC 4.7 L
Hgb 10.4 L
Hct 30.3 L
Plt Count 104 L
HCO3 Pending
Sodium 135
Potassium 4.6
Chloride 100
Carbon Dioxide 30
BUN 24 H
Creatinine 1.2
Glucose 97
Calcium 7.5 L
Vital Signs:
Vital Signs
Temp Pulse Resp BP Pulse Ox
98.7 F 58 11 126/78 100
10/02/24 15:35 10/02/24 13:30 10/02/24 13:30 10/02/24 12:00 10/02/24 13:40
I&O
10/01/24 10/02/24 10/03/24
06:59 06:59 06:59
Intake Total 887.05 / 964.65 1920.2 / 1980.2 540 / 540
Output Total 3785 / 3785 191 / 1970 395 / 395
Balance -2897.95 / -2820.35 10.. 145 / 145
Review of Systems
-
Unable to obtain full review of systems at this time due to: Acuity and Patient Intubation
Physical Exam
-
General: Intubated
[2024-10-02 15:49] LABS: B.E. 4.2 mmol/L; HCO3 29.7 mmol/L (21-28); PCO2 48 mmHg (35-48); PO2 165 mmHg (83-108)
--- NOTE | 2024-10-02 16:10 | PTCARENOTE ---
Pt assessed.Pt was able to nod yes when asked if he wanted ETT out.SBT completed.ABG results to Dr Gonzalez.Pt extubated as ordered at 1610.
--- NOTE | 2024-10-02 16:10 | RESPNOTE ---
Respiratory: patient extubated per Dr Dobbins. No stridor noted. SpO2 99% on room air. RSBI in the 20s to 30s during wean with pH 7.40.
--- NOTE | 2024-10-02 17:08 | PTCARENOTE ---
Pt continues to open eyes to voice,intermittently follow commands,and answer questions with nod/shake .Pt encouraged to speak and say his name,but just said 'ahh'.Spontaneous cough noted.Pt is expectorating on his chest.
[2024-10-02] MEDS: TRANDATE 10 MG IV (19:37)
--- NOTE | 2024-10-02 20:00 | PTCARENOTE ---
Received patient at 1900. Pt. is lethargic. Responds to voice. Follows simple commands. Denies pain/discomfort. Afebrile. Heart rhythm sinus. Currently on room air. Lungs sound coarse. Tube feeds running via dobhoff tube. Longoria catheter in place,
draining without issue. Skin as documented. Discussed plan of care with patient. Vital signs stable at this time.
[2024-10-02] MEDS: ATIVAN 2 MG IV (23:07)
[2024-10-03] VITALS (10 sets, daily range): BP systolic 118–155; BP diastolic 74–97; BMI 25.9
[2024-10-03] MEDS: CARDENE 200 IV ×3 (00:30→22:00)
--- NOTE | 2024-10-03 00:30 | PTCARENOTE ---
Pt. experiencing hypertension. PRN labetalol given but SBP remains 180s to 190s. Nurse practitioner notified. Cardene gtt ordered and started.
[2024-10-03] MEDS: ATIVAN 2 MG IV (03:08)
[2024-10-03 03:55] LABS: B.E. 6.1 mmol/L; HCO3 31.8 mmol/L (21-28); O2 Saturation % 95.5 % (94-98); PCO2 49 mmHg (35-48); PO2 67 mmHg (83-108); pH 7.42 (7.35-7.45)
[2024-10-03 03:56] LABS: O2 Therapy >90
[2024-10-03 04:34] LABS: % Basophils 0.1 % (0-2); % Eosinophils 0.3 % (0-6); % Immature Granulocytes 0.3 % (0-0.5); % Lymphocytes 11.4 % (20.5-51.1); % Monocytes 8.3 % (1.7-9.3); % Neutrophils 79.6 % (42.2-75.2); Absolute Lymphocytes 0.8 10^3/uL (1.2-3.4); Absolute Monocytes 0.6 10^3/uL (0.1-0.6); Absolute Neutrophils 5.6 10^3/uL (1.4-6.5); Hematocrit 37.9 % (39.0-52.0); Hemoglobin 12.7 g/dL (13.0-18.0); Mean Corp Hgb Conc. 33.5 g/dL (33.0-37.0); Mean Corpuscular Hgb 29.3 pg (27.0-31.0); Mean Corpuscular Volume 87.5 fL (80.0-94.0); Mean Platelet Volume 10.8 fL (7.4-10.4); Nucleated Red Blood Cells % 0 % (-); Platelet Count 126 10^3/uL (130-400); Red Blood Cell Count 4.33 10^6/uL (4.70-6.10); Red Cell Dist. Width 14.1 % (11.5-14.5)
[2024-10-03 05:02] LABS: Blood Urea Nitrogen 21 mg/dl (9-20); Calcium 8.3 mg/dl (8.4-10.2); Carbon Dioxide 30 mmol/L (22-30); Chloride 99 mmol/L (98-107); Estimated Creatinine Clearance 71 ml/min; Glucose 113 mg/dl (70-99); Magnesium 2.4 mg/dl (1.6-2.3); Potassium 4.6 mmol/L (3.5-5.1); Sodium 136 mmol/L (135-145); eGFR > 60.00
[2024-10-03] MEDS: UNASYN IV (06:10)
[2024-10-03] MEDS: DILANTIN 100 MG IV ×2 (08:12→19:34)
[2024-10-03] MEDS: PROTONIX IV 40 MG IV (08:14)
[2024-10-03] MEDS: MIRALAX 17 GRAMS TUBE (08:14)
[2024-10-03] MEDS: NSS (PRESERVATIVE FREE) 10 ML IV (08:14)
[2024-10-03] MEDS: KEPPRA 750 MG IV ×2 (08:15→19:34)
[2024-10-03] MEDS: HEPARIN 5000 UNITS SC ×3 (08:15→23:59)
[2024-10-03] MEDS: FLUSH (NSS) 2 FLUSH IV ×2 (08:16→16:10)
--- NOTE | 2024-10-03 08:27 | W.PN.INTV ---
Today's Communication / Plan
Recommendations
Trend sNa
AEDs per neuro
MRI brain pending
Continue aspiration precautions
Monitor his temperature
Continue with ICU level of care; if patient remains stable by tomorrow with no change in clinical status, then will likely downgrade to IMU. Ideally, want to get a brain MRI first before transfer is done
Assessment
-
59-year-old non-smoking incarcerated male with a history of hypertension and psychiatric disorder presented after seizure with mental status changes found to have severe hyponatremia given 3% saline-straight cutter consulted for severe hyponatremia,
seizures, critical care management 09/28/2024.
Severe hyponatremia with subsequent seizures on psychiatric medications-serum sodium 109, now normal at 136
Status post seizure-provoked from hyponatremia
Ventilator dependent respiratory failure - now extubated and on minimal O2
Metabolic encephalopathy
Hypothermia � resolved since 10/01/2024
Aspiration-possible pneumonia related to it-CT chest with mild secretions right side of the trachea layering dependent portion right mainstem bronchus and moderate secretions bronchus intermedius
Hypertensive emergency-blood pressure 220/133
Lactic acidosis � resolved since 09/28/2024
Right hemidiaphragm elevation-mild
Conditions present prior to admission:
Hypertension.
Psychiatric shyyiect-TVO-sa Abilify, Seroquel
Polysubstance abuse
Incarcerated.
Plan
Patient is no longer intubated however he is lethargic
Hold any narcotics if possible given this will only worsen his mental status
Per neurology, continue with Keppra 750 mg every 12 hours and reduce phenytoin to 100 mg every 12, check Dilantin level and check brain MRI without gadolinium
Nebulizers as needed
Continue aspiration precautions
Follow serum sodium level closely-currently 136-slowly corrected
s/p 3% saline
Desmopressin provided 09/29/2024-monitor hourly urine output
Monitor neurologic status closely-rapid correction can rarely leads to osmotic demyelination syndrome
Nephrology evaluation ongoing-correspondence reviewed
TSH-normal 2.85
Cortisol-random 52.8
Urine osmolarity and sodium noted-low urine osmolarity consistent with polydipsia
Neurology evaluation-correspondence reviewed
s/p Thiamine
Brain MRI with gadolinium pending-unable to obtain at this point until screening is completed - the [facility] will be assisting to see if the pt has any metal in his body, he cannot answer given his AMS
EEG 09/28/2024 without obvious seizure activity
Repeat EEG 09/29/2024 without obvious seizure activity
Repeat CT head 09/29/2024-no acute intracranial abnormalities
Continue AEDs as above
Ativan as needed but try to minimally administer
Cultures reviewed
Sputum/tracheal aspirate 09/29/2024-Citrobacter and Pseudomonas
Empiric antibiotics-Unasyn initiated
Monitor blood pressure closely
Antihypertensives per nephrology
Nicardipine if needed
Now requiring pressors-wean norepinephrine as needed
Monitor hemoglobin- transfuse PRBC to keep Hb>7
No need for PPI now that he is extubated
DVT prophylaxis recommended-on heparin subcu
GI prophylaxis-N/A
Nutrition-nasogastric feedings begun 09/29/2024 - continue with this until he awakens and STRAP MACHINE OPERATOR AUTOMATIC eval can be done
Bedside range of motion
Given his altered mental status with risk for aspiration, continue with ICU level of care for continuous monitoring and neurochecks.
Critical care statement: A total of 41 minutes of critical care time was provided for this patient today. This includes management of unstable vital signs, evaluation of the patient at bedside, reviewing the patient's pertinent medical records
including radiographs, ventilator management, sepsis management, pressor management, microbiology, laboratory evaluations, and discussion with primary team, consultants, pharmacy, charge nurse, critical care nursing, and respiratory therapy.
Diagnostic data:
Chest x-ray 09/28/2024-mild right to left mediastinal shift, moderate elevation right hemidiaphragm
CT head 09/28/2024-no acute intracranial hemorrhage or transcortical infarct, moderate white matter leukoaraiosis in the right parietal lobe
CT head neck angiogram 09/28/2024-acute airway aspiration, no evidence for vertebral artery occlusion or dissection, no evidence for large vessel intracranial stenosis or occlusion
Subjective Dataa
Subjective Data
Date of Service:
Date of Service: October 03, 2024
Chief Complaint: Hockey Instructor Follow Up, Pulmonary Follow Up and Vent Management Follow Up
Subjective:
Patient seen this morning. Remains lethargic. Arousable by tactile stimulation but then goes back to sleep. Officer in the room. Currently, heart rate 97, BP 139/73 via A-line, and saturating 97% on 0.5 L/min. BP 121/81 via NIBP. Currently on
tube feeds at 60 cc an hour.
Review of Systems
General: Other (Unable to obtain given patient's clinical status/lethargic)
Objective Data
Data Reviewed
Vital Signs / I&O / Oxygen:
Vital Signs
Temp Pulse Resp BP Pulse Ox
98.5 F 83 17 138/87 100
10/03/24 03:30 10/03/24 06:30 10/03/24 06:30 10/03/24 04:00 10/03/24 06:15
Intake and Output
10/02/24 10/03/24 10/04/24
06:59 06:59 06:59
Intake Total 1919.2 / 1979.2 1735.0 / 1735.0
Output Total 1909 3710 / 3710
Balance 10.2 / 10.2 -1975.0 / -1975.0
SaO2 [CPAP/PSV] 100
SaO2 [A/C] 97
SaO2 100
Nasal Cannula flow liters per 6
minute
Physical Exam
General: Comfortable and Other (Patient minimally responsive, and on tube feedings)
HEENT: Normocephalic and Anicteric
Cardiovascular: S1-S2, Murmur (negative) and Peripheral Edema (negative)
Respiratory: Clear, Wheeze (negative), Crackles (negative), Rhonchi (negative), Non-Labored Respirations and Accessory Resp Muscle Use (negative)
GI: Soft, Non Distended and Normal Bowel Sounds
Neurology: Tremors (negative) and Lethargic (Responds to tactile stimuli but then quickly falls back asleep)
Skin: Warm, Dry, Cyanosis (negative) and Jaundice (negative)
Labs/Micro/Reports
Lab Data
10/03/24 03:48
10/03/24 03:48
Laboratory Results
10/02/24 10/03/24
15:39 03:48
pH 7.40 7.42
pCO2 48 49 H
pO2 165 H 67 L
HCO3 29.7 H 31.8 H
O2 Delivery Level >90
Microbiology
09/28/24 09:10 Blood/Venous Blood Culture - Final
No Growth - Final Report
09/28/24 09:10 Blood/Venous Blood Culture - Final
No Growth - Final Report
09/29/24 08:10 Tracheal Aspirate Respiratory Culture - Final
Citrobacter youngae
Pseudomonas aeruginosa
09/29/24 08:10 Tracheal Aspirate Gram Stain - Final
09/28/24 16:24 Nose MRSA Screen - Final
No Methicillin Resistant Staphylococcus aureus isolated.
--- NOTE | 2024-10-03 09:00 | PTCARENOTE ---
Rec'd pt at 0800 resting in bed. Moves around in bed- somewhat restlessly on his own but not to command. Occasionally will open eyes, pupil are sluggish at 2mm. No focus or tracking. Follows no commands. No withdrawal to nailbed pressure on his
hands but will withdrawal to plantar stroke. No tremors or seizure activity noted. Will not nod yes or no. Weak gag. Dr. Almaguerug in and did not do anything for him as well. Skin is dk wm and dry. Tongue with lacreation. Respirs are sl shallow
but non-labored. Rec'd pt on 5L nc with sats of 99-100%- decreased at 0800 to 3l with sats of 97%. BS are decreased but clear. Coughs an intermittent moist cough. Monitor SR. VS as documented. L radial a line site wnl. Zeroed and recalibrated. Tends
to run about 15 mm/hr higher than the cuff. Waveform as documented. Rec'd pt on IV Cardene at 7.5 mg via R arm DL picc- Pt site wnl. Goal BP 140-160. Tr LE edema. ABd is soft with + BS. Tolerating Osmolite 1.2 tube feeds at 60 ml/hr- no flush.
THermistor albarran intact for mckeon colored urine. Capped ints intact L arm. Skin and mouth care given. Bilat soft wrist restraints in place for pt safety. Pt with shakel on his R ankle and correctional officers in with pt. Plan of care reviewed.
--- NOTE | 2024-10-03 10:40 | PTCARENOTE ---
Not any more wakeful- will intermittently open eyes to tactile stimuli but follows no commands and still no focus or tracking. Will not nod head or speak. Complete CHG bath given. Longoria care given. Pt turned and repositioned. Cardene gtt decreased
to 5 mg as Bp have been running less than 140.
[2024-10-03] MEDS: DULCOLAX 10 MG RECTAL (12:03)
--- NOTE | 2024-10-03 12:05 | PTCARENOTE ---
Pt has not moved his bowels. Dulcolax supp given.
--- NOTE | 2024-10-03 12:20 | PTCARENOTE ---
Assessment overall is unchanged. Did open his eyes when I called his name and looked at me. Tried to mouth a few words but no sound came out. Followed no other commands. While he does not follow commands he moves all over the bed- mostly down in the
bed despite repositioning. Currently on 2l with sats of 99%. VS as documented. Overall BP's have been in the 130-140's. Cardene gtt turned off at 1213. Tolerating tube feeds. Urine remains pink tinged. Outputs as documented.
--- NOTE | 2024-10-03 13:45 | W.PN.NEURO.1 ---
Today's Communication / Plan
-
.
Subjective/Objective
Subjective Data
Date of Service: October 03, 2024
Neurology follow-up note.
24-hour events: extubated yesterday, normothermic, saturating well on room air.
MAR: reviewed.
MAR: Lorazepam 2 mg administered on 10/01/24 at 16:38.
Labs: Normal sodium, glucose�113, platelets�126,
No recurrent seizures
PMH: polysubstance addiction, HTN, psychotic DO, NOS
PSH: unknown
SH: active inmate at [facility]
FH: Unknown
All: Haloperidol
ROS: unable
General: Restrained
Cardio: Regular rate and rhythm. Extremities are without cyanosis or edema.
Neuro:
Mental Status: Grimaces to sternal rub. No verbal output. Does not follow requests
Cranial Nerves: Orthophoric primary gaze, pupils 2 mm, nonreactive. Positive gag, corneals.
Motor: Flaccid quadriplegia
Reflexes: No clonus at the ankles.
Sensory: Grimaces to noxious stimuli.
Coordination: No tremors myoclonic movements
Gait: deferred
Assessment and Plan:
I. Symptomatic seizure
II. Multifactorial encephalopathy (metabolic, toxic), clinical course
III. Severe hyponatremia, resolved
-Aspiration and seizure precautions.
-Continue Keppra 750 mg every 12 hours and reduce phenytoin to 100 mg every 12 hours
-Please check Dilantin level
-Brain MRI wo iraida
-DVT prophylaxis.
I personally reviewed all radiology and labs along with past medical records pertinent to current medical problems. Total time spent in patient care is 35 minutes.
Thank you for allowing us to participate in the care of this patient. We will continue to follow. Please do not hesitate to contact us with any questions or concerns
Objective Data
Vital Signs
Temp Pulse Resp BP Pulse Ox
37.3 C 80 20 139/83 100
10/03/24 08:00 10/03/24 10:30 10/03/24 10:30 10/03/24 08:01 10/03/24 10:00
Lab Results
10/03/24 03:48
10/03/24 03:48
PT 14.3 Sec (11.4-14.6) 09/28/24 07:57
INR 1.08 09/28/24 07:57
APTT 29.3 Sec (23.4-35.0) 09/28/24 07:57
Sodium 136 mmol/L (135-145) 10/03/24 03:48
Potassium 4.6 mmol/L (3.5-5.1) 10/03/24 03:48
BUN 21 mg/dl (9-20) H 10/03/24 03:48
Glucose 113 mg/dl (70-99) H 10/03/24 03:48
Calcium 8.3 mg/dl (8.4-10.2) L 10/03/24 03:48
Phosphorus 3.2 mg/dl (2.5-4.5) 09/30/24 03:05
Phosphorus Cancelled 09/30/24 03:05
Whole Bld Vitamin B1 104 nmol/L (70-180) 09/28/24 10:53
Vitamin B12 556 pg/ml (239-931) 09/28/24 07:57
Ur Buprenorphine Cancelled 09/28/24 13:22
Ur Buprenorphine Negative (Negative) 09/28/24 13:22
Patient Allergies
haloperidol [From Haldol] Allergy (Verified 09/28/24 07:45)
Unknown
Vital Signs and Labs
-
Vital Signs and Labs:
Vital Signs
Temp Pulse Resp BP Pulse Ox
37.3 C 80 20 139/83 100
10/03/24 08:00 10/03/24 10:30 10/03/24 10:30 10/03/24 08:01 10/03/24 10:00
Lab Results
10/03/24 03:48
10/03/24 03:48
PT 14.3 Sec (11.4-14.6) 09/28/24 07:57
INR 1.08 09/28/24 07:57
APTT 29.3 Sec (23.4-35.0) 09/28/24 07:57
Sodium 136 mmol/L (135-145) 10/03/24 03:48
Potassium 4.6 mmol/L (3.5-5.1) 10/03/24 03:48
BUN 21 mg/dl (9-20) H 10/03/24 03:48
Glucose 113 mg/dl (70-99) H 10/03/24 03:48
Calcium 8.3 mg/dl (8.4-10.2) L 10/03/24 03:48
Phosphorus 3.2 mg/dl (2.5-4.5) 09/30/24 03:05
Phosphorus Cancelled 09/30/24 03:05
Whole Bld Vitamin B1 104 nmol/L (70-180) 09/28/24 10:53
Vitamin B12 556 pg/ml (239-931) 09/28/24 07:57
Ur Buprenorphine Cancelled 09/28/24 13:22
Ur Buprenorphine Negative (Negative) 09/28/24 13:22
Medications
-
Medications:
Generic Name Dose Route Start Last Admin
Trade Name Freq PRN Reason Stop Dose Admin
Acetaminophen 650 mg 09/28/24 11:58
Acetaminophen 325 Mg Tablet PO 10/26/24 11:57
Q4HPRN PRN
mild pain/OLIVEROS/temp> 100.4F
Atropine Sulfate 0 drop 09/28/24 17:08 09/30/24 09:20
Atropine Sulfate 1% (Ophthalmic Drops) Droptainer SL 10/26/24 17:07 2 drop
Q4HPRN PRN Administration
excess oral secretions
Bisacodyl 10 mg 09/28/24 11:58 10/03/24 12:03
Bisacodyl 10 Mg Rectal Suppository RECTAL 10/26/24 11:57 10 mg
[id number] PRN Administration
constipation
Dextrose 12.5 grams 09/29/24 19:36
Dextrose 50% (0.5 Grams/Ml) 50 Ml Syringe IV 10/27/24 19:35
[id number] PRN
hypoglycemia
Protocol
Fentanyl Citrate 50 mcg 09/28/24 15:57 10/02/24 06:20
Fentanyl (50 Mcg/Ml) 100 Mcg/2 Ml Ampul IV 10/12/24 15:56 50 mcg
[id number] PRN Administration
see protocol
Protocol
Glucagon 1 mg 09/29/24 19:36
Glucagon 1 Mg Vial IM 10/27/24 19:35
PRN PRN
hypoglycemia
Protocol
Heparin Sodium 5,000 units 09/29/24 16:00 10/03/24 08:15
Heparin 5,000 Units/Ml 1 Ml Vial SC 10/27/24 15:59 5,000 units
Q8 LIZZETTE Administration
Nicardipine/Sodium Chloride 40 mg in 200 mls @ 0 mls/hr 10/02/24 23:45 10/03/24 06:11
Cardene IV 200 mls
PER PROTOCOL LIZZETTE Administration
Protocol
Per Protocol
Labetalol HCl 10 mg 09/28/24 10:19 10/02/24 19:37
Labetalol Hcl 5 Mg/1 Ml (20 Mg/4 Ml) Injection IV 10/26/24 10:18 10 mg
Q6HPRN PRN Administration
SBP>180 or DBP>105
Levetiracetam 750 mg 09/29/24 20:00 10/03/24 08:15
Levetiracetam (100 Mg/Ml) 500 Mg/5 Ml Vial IV 10/27/24 19:59 750 mg
Q12 LIZZETTE Administration
Lorazepam 2 mg 09/30/24 23:21 10/03/24 03:08
Lorazepam 2 Mg/Ml Vial IV 10/26/24 12:34 2 mg
Q4HPRN PRN Administration
seizures/anxiety/agitation
Ondansetron HCl 4 mg 09/28/24 11:58
Ondansetron 4 Mg/2 Ml Vial IV 10/26/24 11:57
Q8HPRN PRN
nausea and vomiting
Pantoprazole Sodium 40 mg 09/29/24 12:00 10/03/24 08:14
Pantoprazole Sodium 40 Mg/10 Ml Vial IV 10/27/24 11:59 40 mg
DAILY LIZZETTE Administration
Phenytoin Sodium 100 mg 09/29/24 10:00 10/03/24 08:12
Phenytoin (50 Mg/ Ml) 100 Mg/2 Ml Vial IV 10/27/24 09:59 100 mg
TID LIZZETTE Administration
Polyethylene Glycol 17 grams 09/28/24 11:58
Polyethylene Glycol Powder 17 Grams Packet PO 10/26/24 11:57
DAILYPRN PRN
constipation
Polyethylene Glycol 17 grams 09/29/24 08:00 10/03/24 08:14
Polyethylene Glycol Powder 17 Grams Packet TUBE 10/27/24 07:59 17 grams
DAILY LIZZETTE Administration
Senna/Docusate Sodium 1 tablet 09/28/24 11:58
Docusate W/Senna (Aurea-Colace) Tablet PO 10/26/24 11:57
BIDPRN PRN
constipation
Sodium Chloride 0 flush 09/28/24 13:00 10/03/24 08:16
Sodium Chloride 0.9% (Flush) Syringe IV 10/26/24 12:59 2 flush
PER PROTOCOL LIZZETTE Administration
Sodium Chloride 0 ml 09/28/24 13:00
Sodium Chloride 0.9% (Preservative Free) 10 Ml Vial IV 10/26/24 12:59
PRN PRN
IV Lorazepam dilution
Protocol
Sodium Chloride 10 ml 09/29/24 12:00 10/03/24 08:14
Sodium Chloride 0.9% (Preservative Free) 10 Ml Vial IV 10/27/24 11:59 10 ml
DAILY LIZZETTE Administration
Sodium Chloride 1 ml 09/30/24 23:25
Nss (Pf) 10 Ml Vial For Ativan 2 Mg Dose IV 10/28/24 23:24
Q4HPRN PRN
IV LORAZEPAM DILUTION
Home Medications
-
Home Medications
acetaminophen 325 mg tablet 325 mg PO BIDPRN PRN mild pain 09/28/24
amlodipine 10 mg tablet (Norvasc) 10 mg PO HS Blood Pressure 09/28/24
aripiprazole 300 mg suspension, extended rel. intramuscular syringe (Maria Elena Cano) 300 mg IM QMONTH Mental Health/Anxiety 09/28/24
benztropine 0.5 mg tablet 0.5 mg PO HS Neurological Condition 09/28/24
lisinopril 40 mg tablet 40 mg PO HS Blood Pressure 09/28/24
quetiapine 100 mg tablet (Seroquel) 100 mg PO HS Mental Health/Anxiety 09/28/24
therapeutic multivitamin 1 tab PO HS Supplement 09/28/24
--- NOTE | 2024-10-03 14:22 | PTCARENOTE ---
Pt has had an MRI on hold for several days- I spoke with MRI today and they needed screening clearance for him. [facility] who is going to get back to me.
--- NOTE | 2024-10-03 16:30 | PTCARENOTE ---
Assessment- does wake up a little more to verbal stimuli and did say some words but not understandable. Was able to squeeze my hands and move his toes to command- otherwise then closes his eyes. Does move in bed on his own. Coughs an intermittent
moist cough- orally suctioned for small amt of whitish secretions. VS as documented. Funmilayo tubing changed. A line still runs about 10-15 mm/hg higher then the cuff. Per Pastor wanted to keep a line in today. Cardene gtt remains off. Tube feed
rate increased to 80 ml/hr per Foot Orthopedist recommendation. Urine- less bloody tinged. Turned and repositioned. Soft wrist restraints maintained. [employer]al officers at the bedside.
--- NOTE | 2024-10-03 16:42 | W.PN.HOSP.TC ---
Addendum entered and electronically signed by Eddie Tillman DO 10/04/24 08:53:
Off vasopressors, but started on cardene gtt for uncontrolled HTN
Original Note:
Today's Communication/Plan
-
Assessment / Plan
Assessment / Plan
Gen-critically ill-appearing, encephalopathic
HEENT-NC, AT, anicteric, pupils equal, Dobbhoff in place
Neck-supple
CV-reg, no M, +S1/S2
Lungs-clear to auscultation B/L
Abd-soft, NT, ND
Musculoskeletal-mild edema bilateral upper and lower extremities, no deformity
Skin-warm and dry
Neuro-somnolent, responds to noxious stimuli, no tremor
Psych-unable to assess
59yo M with HTN, psychiatric d/o, incarcerated in [facility] brought 2/2 significant sedation, poor responsiveness and seizures with tongue biting. Found severe hyponatremia.
A/P
#Hyponatremia, severe with seizures
-most likely 2/2 psychiatric meds which are being held
-Serum sodium levels improving, currently 136, off IV fluids
-Nephrology signed off
-Keppra loaded in ED - will continue
-seizure precautions
#Acute hypoxic respiratory failure
-2/2 significant lethargy with hyponatremia
-Intubated on 09/28, extubated 10/02
#Acute metabolic encephalopathy
-most likely due to post-ictal state and severe hyponatremia
-Now off sedation but mental status remains poor
-CT head without acute hemorrhage or stroke
-MRI brain when able
-Keppra/dilantin
-EEG with generalized slowness
-Ativan PRN
-UDS Neg
-B12, folate WNL
#Hypothermia:
-concern for brain stem damage with hyponatremia
-Improving, discontinued warming blanket
-TSH and cortisol WNL
#Aspiration pneumonia:
-Continue antibiotic treatment with Unasyn
#mild thrombocytopenia
-unclear reason, might be reactive. No heparin product given on admission
#Mild R to L mediastinal shift
-without signs of pneumothorax on XR
#Psychiatric d/o
-hold meds
-Evaluated by psych, recommend holding off on Seroquel at this point, will reassess when patient more awake
#Essential HTN with HTN emergency on admission
-Blood pressure improving, now off vasopressors
DVT ppx SCDs (with stroke w//U)
Full code
I have spent at least 58min of critical care time reviewing chart, test results, communication with cosnultants and direct patient care
Anticipated Discharge: > 48 hours
Subjective/Interval History
-
Date of Service: October 03, 2024
Mr. Zamorano was seen and examined in the ICU this morning. He has been extubated. Dobbhoff tube remains in place for feeding and medications. He developed hematuria from Longoria overnight. He is off sedation although mental status remains poor.
Objective Data
-
Labs:
Laboratory Results
10/03/24
03:48
Sodium 136
Potassium 4.6
Chloride 99
Carbon Dioxide 30
BUN 21 H
Creatinine 1.0
Glucose 113 H
Calcium 8.3 L
Vital Signs:
Vital Signs
Temp Pulse Resp BP Pulse Ox
99.6 F 80 20 139/83 97
10/03/24 13:00 10/03/24 10:30 10/03/24 10:30 10/03/24 08:01 10/03/24 13:00
I&O
10/02/24 10/03/24 10/04/24
06:59 06:59 06:59
Intake Total 0.2 / 1979.2 1735.0 / 1832.5 707.5 / 707.5
Output Total 1909 3710 / 3710 780 / 780
Balance 10.2 / 10.2 -1975.0 / -1877.5 -72.5 / -72.5
Review of Systems
-
Unable to obtain full review of systems at this time due to: Acuity
Physical Exam
-
General: Other (Critically ill-appearing)
[2024-10-03 16:58] LABS: Dilantin 16.5 ug/ml (10-20)
--- NOTE | 2024-10-03 17:30 | PTCARENOTE ---
Starr back from [facility]- Pt does not have any contact information but is ex . They do not have any records that describel any metal/devices but [facility]. They did say he has a hx of
Sickle Cell disease, DM, Schiztophrenia and an allegy to Depakote but they did not have any info as to what the allergy was.
[2024-10-03] MEDS: TRANDATE 10 MG IV (19:35)
--- NOTE | 2024-10-03 20:00 | PTCARENOTE ---
Received patient at 1900. Pt. currently in bed. Lethargic. Responds to voice. Opening eyes, follows simple commands. Heart rhythm sinus. Currently on room air. Tube feeds running at goal via dobhoff tube. Longoria catheter in place, draining without
issue. Skin as documented. Discussed plan of care with patient. Vital signs stable at this time.
[2024-10-03] MEDS: ZESTRIL 40 MG PO (21:06)
[2024-10-03] MEDS: NORVASC 10 MG PO (21:06)
[2024-10-04] VITALS (13 sets, daily range): BP systolic 121–178; BP diastolic 74–99; BMI 25.8
--- NOTE | 2024-10-04 00:05 | PTCARENOTE ---
Pt. experiencing hypertension during shift. PRN IV Trandate given. Home BP meds (Norvasc and Lisinopril) restarted and administered. Remains hypertensive SBP 180s. Cardene gtt restarted. Vital signs stable at this time.
--- NOTE | 2024-10-04 03:40 | PTCARENOTE ---
Pt. SBP reading 110s to 120s at this time. Cardene gtt is off. AM labs drawn. Vital signs stable at this time.
[2024-10-04 04:09] LABS: Hematocrit 37.9 % (39.0-52.0); Hemoglobin 12.6 g/dL (13.0-18.0); Mean Corp Hgb Conc. 33.2 g/dL (33.0-37.0); Mean Corpuscular Hgb 29.2 pg (27.0-31.0); Mean Corpuscular Volume 87.9 fL (80.0-94.0); Mean Platelet Volume 9.9 fL (7.4-10.4); Platelet Count 138 10^3/uL (130-400); Red Blood Cell Count 4.31 10^6/uL (4.70-6.10); Red Cell Dist. Width 13.6 % (11.5-14.5); White Blood Cell Count 6.7 10^3/uL (4.8-10.8)
[2024-10-04 04:10] LABS: Blood Urea Nitrogen 25 mg/dl (9-20); Calcium 8.4 mg/dl (8.4-10.2); Carbon Dioxide 30 mmol/L (22-30); Chloride 98 mmol/L (98-107); Estimated Creatinine Clearance 64 ml/min; Glucose 107 mg/dl (70-99); Magnesium 2.3 mg/dl (1.6-2.3); Potassium 4.8 mmol/L (3.5-5.1); Sodium 135 mmol/L (135-145); Triglycerides 59 mg/dl (10-149); eGFR > 60.00
[2024-10-04] MEDS: DILANTIN 100 MG IV ×2 (08:21→20:13)
--- NOTE | 2024-10-04 08:22 | W.PN.INTV ---
Today's Communication / Plan
Recommendations
Trend sNa
AEDs per neuro
MRI brain pending, awaiting MRI clearance
Continue aspiration precautions
Monitor his temperature
If blood pressure remains stable for the remainder of this afternoon then I will downgrade out of ICU to telemetry vs IMU. Once downgraded then Java Developer With Security Clearance/Pulmonary service will sign off. Please call pulmonary with any questions or concerns.
Assessment
-
59-year-old non-smoking incarcerated male with a history of hypertension and psychiatric disorder presented after seizure with mental status changes found to have severe hyponatremia given 3% saline-assembly press operator consulted for severe hyponatremia,
seizures, critical care management 09/28/2024.
Impression:
Severe hyponatremia with subsequent seizures on psychiatric medications-serum sodium 109, now normal at 135
Status post seizure-provoked from hyponatremia
Ventilator dependent respiratory failure - now extubated and on minimal O2
Metabolic encephalopathy - markedly improved as of 10/04/2024
Hypothermia � resolved since 10/01/2024
Aspiration-possible pneumonia related to it-CT chest with mild secretions right side of the trachea layering dependent portion right mainstem bronchus and moderate secretions bronchus intermedius
Hypertensive emergency-blood pressure 220/133 --> resolved s/p reinitiation of his home PO meds; off cardene gtt since 10/03/2024
Lactic acidosis � resolved since 09/28/2024
Right hemidiaphragm elevation-mild
Conditions present prior to admission:
Hypertension.
Psychiatric [id number] Abilify, Seroquel
Polysubstance abuse
Incarcerated.
Plan
Patient is no longer intubated and was lethargic yesterday
As of today, he is awake, alert, and speaking; AAOx3
Hold any narcotics if possible given this will worsen his mental status
Per neurology, continue with Keppra 750 mg IV q12 hours and reduced phenytoin to 100 mg IV q12, Dilantin level is 16.5 this AM (therapeutic is 10-20); and check brain MRI without gadolinium
Nebulizers as needed - not currently bronchospastic
Continue aspiration precautions
Follow serum sodium level closely-currently 135-slowly corrected
s/p 3% saline
Desmopressin provided 09/29/2024-monitor urine output
Monitor neurologic status-rapid correction can rarely leads to osmotic demyelination syndrome --> we are out of this window now as serum sodium was corrected slowly
Nephrology evaluation ongoing-correspondence reviewed
TSH-normal 2.85
Cortisol-random 52.8
Urine osmolarity and sodium noted-low urine osmolarity consistent with polydipsia
Neurology evaluation-correspondence reviewed
s/p Thiamine
Brain MRI with gadolinium pending-unable to obtain at this point until screening is completed - the snf will be assisting to see if the pt has any metal in his body as pt is unable to tell us given AMS
EEG 09/28/2024 without obvious seizure activity
Repeat EEG 09/29/2024 without obvious seizure activity
Repeat CT head 09/29/2024-no acute intracranial abnormalities
Continue AEDs as above
Ativan as needed but try to minimally administer
Cultures reviewed
Sputum/tracheal aspirate 09/29/2024-Citrobacter and Pseudomonas
s/p course of Unasyn (last dose this AM on 10/03/2024; started on 09/28/2024)
Monitor blood pressure with goal <140/90
Home p.o. meds restarted
Off nicardipine drip since yesterday (10/03)
Antihypertensives per nephrology
Monitor hemoglobin- transfuse PRBC to keep Hb>7
No need for PPI now that he is extubated
DVT prophylaxis: HSQ
GI prophylaxis-N/A
Nutrition-nasogastric feedings begun 09/29/2024 - consult STEMMING MACHINE OPERATOR now that he is awake
Bedside range of motion
If blood pressure remains stable for the remainder of this afternoon then I will downgrade out of ICU to telemetry vs IMU. Once downgraded then Java Developer With Security Clearance/Pulmonary service will sign off. Please call pulmonary with any questions or concerns.
Diagnostic data:
Chest x-ray 09/28/2024-mild right to left mediastinal shift, moderate elevation right hemidiaphragm
CT head 09/28/2024-no acute intracranial hemorrhage or transcortical infarct, moderate white matter leukoaraiosis in the right parietal lobe
CT head neck angiogram 09/28/2024-acute airway aspiration, no evidence for vertebral artery occlusion or dissection, no evidence for large vessel intracranial stenosis or occlusion
Total time spent today was 56 minutes for this encounter. Time includes reviewing laboratory test/imaging results, reviewing pertinent medical records, obtaining and reviewing medical history, performing an appropriate exam, ordering medications,
tests and procedures. Time also includes documentation of this encounter, coordinating patient care and communicating with other healthcare professionals. Total time does not include separately billed tests performed on this date of service.
Subjective Dataa
Subjective Data
Date of Service:
Date of Service: October 04, 2024
Chief Complaint: Java Developer With Security Clearance Follow Up, Pulmonary Follow Up and Vent Management Follow Up
Subjective:
Patient seen and evaluated this morning. He is fully awake and answering questions. Difficult to understand his words. BP 170/90 and heart rate 80. Saturating 100% on room air. His lisinopril and Norvasc were started last night (home meds). He
is currently not in any distress. Remains on tube feeds at 80 cc/h. Been off Cardene drip since yesterday. Placement x 2 are in the patient's room.
Review of Systems
General: Other (Unable to obtain given patient's AMS/unable to understand his speech)
Objective Data
Data Reviewed
Vital Signs / I&O / Oxygen:
Vital Signs
Temp Pulse Resp BP Pulse Ox
99.6 F 79 22 131/94 94
10/04/24 08:18 10/04/24 06:00 10/04/24 06:00 10/04/24 04:00 10/04/24 04:30
Intake and Output
0110/04/24 10/05/24
06:59 06:59 06:59
Intake Total 1735.0 / 1832.5 2057.5 / 2057.5
Output Total 3710 / 3710 2290 / 2290
Balance -1975.0 / -1877.5 -232.5 / -232.5
SaO2 [CPAP/PSV] 100
SaO2 [A/C] 97
SaO2 94
Nasal Cannula flow liters per 2
minute
Physical Exam
General: Respiratory Distress (negative), Comfortable, Chills (negative) and Sweats (negative)
HEENT: Normocephalic and Anicteric
Cardiovascular: S1-S2, Murmur (negative) and Peripheral Edema (negative)
Respiratory: Clear, Wheeze (negative), Crackles (negative), Rhonchi (negative), Non-Labored Respirations and Accessory Resp Muscle Use (negative)
GI: Soft, Non Distended and Normal Bowel Sounds
Neurology: Awake, Alert and Tremors (negative)
Skin: Warm, Dry, Cyanosis (negative) and Jaundice (negative)
Labs/Micro/Reports
Lab Data
10/04/24 03:26
10/04/24 03:26
Microbiology
09/28/24 09:10 Blood/Venous Blood Culture - Final
No Growth - Final Report
09/28/24 09:10 Blood/Venous Blood Culture - Final
No Growth - Final Report
09/29/24 08:10 Tracheal Aspirate Respiratory Culture - Final
Citrobacter youngae
Pseudomonas aeruginosa
09/29/24 08:10 Tracheal Aspirate Gram Stain - Final
[2024-10-04] MEDS: HEPARIN 5000 UNITS SC ×3 (08:23→23:23)
[2024-10-04] MEDS: KEPPRA 750 MG IV ×2 (08:30→20:14)
[2024-10-04] MEDS: MIRALAX TUBE (08:35)
[2024-10-04] MEDS: NSS (PRESERVATIVE FREE) 10 ML IV (08:35)
[2024-10-04] MEDS: PROTONIX IV 40 MG IV (08:36)
--- NOTE | 2024-10-04 10:00 | PTCARENOTE ---
Complete assessment done and documented in worklist. Pt will open eyes to name, he is oriented today to name, place, and year (not month). Pt is restless, able to SIMEON bilat. Bilat wrist restraints on for FT and IV protection. Pt is SR, L rad intact,
BP 148/93. Pt on R/A, lobes sl diminished at bases, O2 iuf=145%. Dr Jenkins in to see pt and updated. Cardene remains off. Dr Jenkins aware that MRI will not do scan of brain until they have a metal clearance, which the [facility] police dept
did not know the history. Pt is a vet. Pt with dobhoff intact, receiving Osmolite 1.2 at 80 ml/hr. Pt was cleaned for loose soft incontinence BM. Longoria cath intact, draining mod amt of yellow urine. Pt boosted and turned.
--- NOTE | 2024-10-04 12:48 | W.PN.NEURO.1 ---
Today's Communication / Plan
-
.
Subjective/Objective
Subjective Data
Date of Service: October 04, 2024
Neurology follow-up note.
24-hour events: Mr. Ko reports no complaints.
VS: mildly hypertensive, normothermic.
MAR: reviewed.
MAR: Lorazepam 2 mg administered on 10/01/24 at 16:38.
Labs: Normal sodium, glucose�113, platelets�126,
No recurrent seizures
PMH: polysubstance addiction, HTN, psychotic DO, NOS
SH: active inmate at [facility] retirement
All: Haloperidol
ROS: Negative for headache, diplopia, motor, sensory coordination deficits.
General: Restrained
Cardio: Regular rate and rhythm. Extremities are without cyanosis or edema.
Neuro:
Mental Status: Awakens to verbal stimuli. Oriented to self, month, year, day, date. Mildly impaired attention. Preserved comprehension. Follows simple requests consistently.
Cranial Nerves: Orthophoric primary gaze, pupils 2.5 mm, reactive. No facial weakness. Hearing is preserved. Minimal dysarthria.
Motor: All limbs are antigravity symmetrically purposefully.
Reflexes: No clonus at the ankles.
Sensory: Localizes noxious stimuli.
Coordination: No tremors myoclonic movements
Gait: deferred
Assessment and Plan:
I. Symptomatic seizure
II. Encephalopathy, significantly improved.
III. Severe hyponatremia, resolved
-Aspiration and seizure precautions.
-Continue Keppra 750 mg every BID with plan to wean off as OP
-D/c phenytoin. Wean off Keppra as OP
-Brain MRI without iraida if difficulties with ambulation
-DVT prophylaxis.
-Please recall neurology services any questions or concerns.
I personally reviewed all radiology and labs along with past medical records pertinent to current medical problems. Total time spent in patient care is 35 minutes.
Thank you for allowing us to participate in the care of this patient. Please do not hesitate to contact us with any questions or concerns
Objective Data
Vital Signs
Temp Pulse Resp BP Pulse Ox
37.1 C 79 22 131/94 94
10/04/24 12:15 10/04/24 06:00 10/04/24 06:00 10/04/24 04:00 10/04/24 04:30
Lab Results
10/04/24 03:26
10/04/24 03:26
PT 14.3 Sec (11.4-14.6) 09/28/24 07:57
INR 1.08 09/28/24 07:57
APTT 29.3 Sec (23.4-35.0) 09/28/24 07:57
Sodium 135 mmol/L (135-145) 10/04/24 03:26
Potassium 4.8 mmol/L (3.5-5.1) 10/04/24 03:26
BUN 25 mg/dl (9-20) H 10/04/24 03:26
Glucose 107 mg/dl (70-99) H 10/04/24 03:26
Calcium 8.4 mg/dl (8.4-10.2) 10/04/24 03:26
Phosphorus 3.2 mg/dl (2.5-4.5) 09/30/24 03:05
Phosphorus Cancelled 09/30/24 03:05
Whole Bld Vitamin B1 104 nmol/L (70-180) 09/28/24 10:53
Vitamin B12 556 pg/ml (239-931) 09/28/24 07:57
Ur Buprenorphine Cancelled 09/28/24 13:22
Ur Buprenorphine Negative (Negative) 09/28/24 13:22
Patient Allergies
haloperidol [From Haldol] Allergy (Verified 09/28/24 07:45)
Unknown
valproic acid [From Depakene] Allergy (Unverified 10/03/24 17:21)
Unknown
Vital Signs and Labs
-
Vital Signs and Labs:
Vital Signs
Temp Pulse Resp BP Pulse Ox
37.1 C 79 22 131/94 94
10/04/24 12:15 10/04/24 06:00 10/04/24 06:00 10/04/24 04:00 10/04/24 04:30
Lab Results
10/04/24 03:26
10/04/24 03:26
PT 14.3 Sec (11.4-14.6) 09/28/24 07:57
INR 1.08 09/28/24 07:57
APTT 29.3 Sec (23.4-35.0) 09/28/24 07:57
Sodium 135 mmol/L (135-145) 10/04/24 03:26
Potassium 4.8 mmol/L (3.5-5.1) 10/04/24 03:26
BUN 25 mg/dl (9-20) H 10/04/24 03:26
Glucose 107 mg/dl (70-99) H 10/04/24 03:26
Calcium 8.4 mg/dl (8.4-10.2) 10/04/24 03:26
Phosphorus 3.2 mg/dl (2.5-4.5) 09/30/24 03:05
Phosphorus Cancelled 09/30/24 03:05
Whole Bld Vitamin B1 104 nmol/L (70-180) 09/28/24 10:53
Vitamin B12 556 pg/ml (239-931) 09/28/24 07:57
Ur Buprenorphine Cancelled 09/28/24 13:22
Ur Buprenorphine Negative (Negative) 09/28/24 13:22
Medications
-
Medications:
Generic Name Dose Route Start Last Admin
Trade Name Freq PRN Reason Stop Dose Admin
Acetaminophen 650 mg 09/28/24 11:58
Acetaminophen 325 Mg Tablet PO 10/26/24 11:57
Q4HPRN PRN
mild pain/OLIVEROS/temp> 100.4F
Amlodipine Besylate 10 mg 10/03/24 22:00 10/03/24 21:06
Amlodipine 10 Mg Tablet PO 10/31/24 21:59 10 mg
HS LIZZETTE Administration
Atropine Sulfate 0 drop 09/28/24 17:08 09/30/24 09:20
Atropine Sulfate 1% (Ophthalmic Drops) Droptainer SL 10/26/24 17:07 2 drop
Q4HPRN PRN Administration
excess oral secretions
Bisacodyl 10 mg 09/28/24 11:58 10/03/24 12:03
Bisacodyl 10 Mg Rectal Suppository RECTAL 10/26/24 11:57 10 mg
[id number] PRN Administration
constipation
Dextrose 12.5 grams 09/29/24 19:36
Dextrose 50% (0.5 Grams/Ml) 50 Ml Syringe IV 10/27/24 19:35
[id number] PRN
hypoglycemia
Protocol
Fentanyl Citrate 50 mcg 09/28/24 15:57 10/02/24 06:20
Fentanyl (50 Mcg/Ml) 100 Mcg/2 Ml Ampul IV 10/12/24 15:56 50 mcg
[id number] PRN Administration
see protocol
Protocol
Glucagon 1 mg 09/29/24 19:36
Glucagon 1 Mg Vial IM 10/27/24 19:35
PRN PRN
hypoglycemia
Protocol
Heparin Sodium 5,000 units 09/29/24 16:00 10/04/24 08:23
Heparin 5,000 Units/Ml 1 Ml Vial SC 10/27/24 15:59 5,000 units
Q8 LIZZETTE Administration
Nicardipine/Sodium Chloride 40 mg in 200 mls @ 0 mls/hr 10/02/24 23:45 10/03/24 22:00
Cardene IV 200 mls
PER PROTOCOL LIZZETTE Administration
Protocol
Per Protocol
Labetalol HCl 10 mg 09/28/24 10:19 10/03/24 19:35
Labetalol Hcl 5 Mg/1 Ml (20 Mg/4 Ml) Injection IV 10/26/24 10:18 10 mg
Q6HPRN PRN Administration
SBP>180 or DBP>105
Levetiracetam 750 mg 09/29/24 20:00 10/04/24 08:30
Levetiracetam (100 Mg/Ml) 500 Mg/5 Ml Vial IV 10/27/24 19:59 750 mg
Q12 LIZZETTE Administration
Lisinopril 40 mg 10/03/24 22:00 10/03/24 21:06
Lisinopril 20 Mg Tablet PO 10/31/24 21:59 40 mg
HS LIZZETTE Administration
Lorazepam 2 mg 09/30/24 23:21 10/03/24 03:08
Lorazepam 2 Mg/Ml Vial IV 10/26/24 12:34 2 mg
Q4HPRN PRN Administration
seizures/anxiety/agitation
Ondansetron HCl 4 mg 09/28/24 11:58
Ondansetron 4 Mg/2 Ml Vial IV 10/26/24 11:57
Q8HPRN PRN
nausea and vomiting
Pantoprazole Sodium 40 mg 09/29/24 12:00 10/04/24 08:36
Pantoprazole Sodium 40 Mg/10 Ml Vial IV 10/27/24 11:59 40 mg
DAILY LIZZETTE Administration
Phenytoin Sodium 100 mg 10/03/24 20:00 10/04/24 08:21
Phenytoin (50 Mg/ Ml) 100 Mg/2 Ml Vial IV 10/31/24 19:59 100 mg
BID LIZZETTE Administration
Polyethylene Glycol 17 grams 09/28/24 11:58
Polyethylene Glycol Powder 17 Grams Packet PO 10/26/24 11:57
DAILYPRN PRN
constipation
Polyethylene Glycol 17 grams 09/29/24 08:00 10/04/24 08:35
Polyethylene Glycol Powder 17 Grams Packet TUBE 10/27/24 07:59 Not Given
DAILY LIZZETTE
Senna/Docusate Sodium 1 tablet 09/28/24 11:58
Docusate W/Senna (Aurea-Colace) Tablet PO 10/26/24 11:57
BIDPRN PRN
constipation
Sodium Chloride 0 flush 09/28/24 13:00 10/03/24 16:10
Sodium Chloride 0.9% (Flush) Syringe IV 10/26/24 12:59 2 flush
PER PROTOCOL LIZZETTE Administration
Sodium Chloride 0 ml 09/28/24 13:00
Sodium Chloride 0.9% (Preservative Free) 10 Ml Vial IV 10/26/24 12:59
PRN PRN
IV Lorazepam dilution
Protocol
Sodium Chloride 10 ml 09/29/24 12:00 10/04/24 08:35
Sodium Chloride 0.9% (Preservative Free) 10 Ml Vial IV 10/27/24 11:59 10 ml
DAILY LIZZETTE Administration
Sodium Chloride 1 ml 09/30/24 23:25
Nss (Pf) 10 Ml Vial For Ativan 2 Mg Dose IV 10/28/24 23:24
Q4HPRN PRN
IV LORAZEPAM DILUTION
Home Medications
-
Home Medications
acetaminophen 325 mg tablet 325 mg PO BIDPRN PRN mild pain 09/28/24
amlodipine 10 mg tablet (Norvasc) 10 mg PO HS Blood Pressure 09/28/24
aripiprazole 300 mg suspension, extended rel. intramuscular syringe (Maria Elena Maintena) 300 mg IM QMONTH Mental Health/Anxiety 09/28/24
benztropine 0.5 mg tablet 0.5 mg PO HS Neurological Condition 09/28/24
lisinopril 40 mg tablet 40 mg PO HS Blood Pressure 09/28/24
quetiapine 100 mg tablet (Seroquel) 100 mg PO HS Mental Health/Anxiety 09/28/24
therapeutic multivitamin 1 tab PO HS Supplement 09/28/24
--- NOTE | 2024-10-04 14:16 | W.PN.HOSP.TC ---
Today's Communication/Plan
-
Would like to obtain MRI, although patient is unreliable historian and unclear if he has any implants not compatible with MRI
Assessment / Plan
Assessment / Plan
Gen-awake and alert, interactive
HEENT-NC, AT, anicteric, pupils equal, Dobbhoff in place
Neck-supple
CV-reg, no M, +S1/S2
Lungs-clear to auscultation B/L
Abd-soft, NT, ND
Musculoskeletal-mild edema bilateral upper and lower extremities, no deformity
Skin-warm and dry
Neuro-awake and alert, dysarthric
Psych-unable to assess
59yo M with HTN, psychiatric d/o, incarcerated in [facility] brought 2/2 significant sedation, poor responsiveness and seizures with tongue biting. Found severe hyponatremia.
A/P
#Hyponatremia, severe with seizures
-most likely 2/2 psychiatric meds which are being held
-Serum sodium levels improving, currently 135, off IV fluids
-Nephrology signed off
-Keppra loaded in ED - will continue
-seizure precautions
#Acute hypoxic respiratory failure
-2/2 significant lethargy with hyponatremia
-Intubated on 09/28, extubated 10/02
-Now saturating properly on room air
#Acute metabolic encephalopathy
-most likely due to post-ictal state and severe hyponatremia
-Now off sedation, status significantly improved and he is now alert and interactive
-CT head without acute hemorrhage or stroke
-MRI brain pending although patient history unclear regarding possible metal implants
-Keppra/dilantin
-EEG with generalized slowness
-Ativan PRN
-UDS Neg
-B12, folate WNL
#Hypothermia:
-concern for brain stem damage with hyponatremia
-Resolved, discontinued warming blanket
-TSH and cortisol WNL
#Aspiration pneumonia:
-Continue antibiotic treatment with Unasyn
#mild thrombocytopenia
-unclear reason, might be reactive. No heparin product given on admission
#Mild R to L mediastinal shift
-without signs of pneumothorax on XR
#Psychiatric d/o
-hold meds
-Evaluated by psych, recommend holding off on Seroquel at this point, will reassess when patient more awake
#Essential HTN with HTN emergency on admission
-Blood pressure improving, now off vasopressors
DVT ppx SCDs (with stroke w//U)
Full code
I have spent at least 58min of critical care time reviewing chart, test results, communication with cosnultants and direct patient care
Anticipated Discharge: > 48 hours
Subjective/Interval History
-
Date of Service: October 04, 2024
Mr. Zamorano was seen and examined in the ICU this morning. Cardene drip was discontinued. His mentation has dramatically improved and he is now alert and interactive.
Objective Data
-
Labs:
Laboratory Results
10/04/24
03:26
WBC 6.7
Hgb 12.6 L
Hct 37.9 L
Plt Count 138
Sodium 135
Potassium 4.8
Chloride 98
Carbon Dioxide 30
BUN 25 H
Creatinine 1.1
Glucose 107 H
Calcium 8.4
Vital Signs:
Vital Signs
Temp Pulse Resp BP Pulse Ox
98.8 F 77 17 121/82 98
10/04/24 12:15 10/04/24 13:30 10/04/24 13:30 10/04/24 13:00 10/04/24 13:51
I&O
10/03/24 10/04/24 10/05/24
06:59 06:59 06:59
Intake Total 1735.0 / 1832.5 2057.5 / 2137.5 560 / 560
Output Total 3710 / 3710 2290 / 2390 405 / 405
Balance -1975.0 / -1877.5 -232.5 / -252.5 155 / 155
Review of Systems
-
History Source: Patient
All other systems: Reviewed and negative
Physical Exam
-
General: No Apparent Distress
--- NOTE | 2024-10-04 14:20 | PTCARENOTE ---
Dr Delong in to see pt and updated. Pt has been off of cardene since am, for possible downgrade to IMU later today as per Dr Delong. Pt much more awake today. Mouth care and albarran care done. Pt boosted frequently, and turned q 2hrs.
--- NOTE | 2024-10-04 17:56 | PTCARENOTE ---
Pt cleaned for incontinent mod amt soft brown BM. All linen changed. Pt much more awake. [place] d/bonifacio. Pt for swallowing study tomorrow. TFs to remain infusing tonight. Pt cleared to go to private tele room when available.
--- NOTE | 2024-10-04 19:44 | PTCARENOTE ---
Pt had pulled out his dobhoff although he had bilat wrist restraints on. Tatyana, WAREHOUSE SORTER made aware. Nursing swallowing eval done, and pt able to swallow water without any coughing. Pt may have clear liqs as directed by WAREHOUSE SORTER, and take his po meds. PT now has
a tele private room.
--- NOTE | 2024-10-04 20:43 | PTCARENOTE ---
Day shift RN did bedside swallow eval on pt. Pt then tx to rm [id number]. Report was given via telephone. Guards at bedside during tx. Pt remained on tele. No s/s of distress assessed.
[2024-10-04] MEDS: ZESTRIL 40 MG PO (21:34)
[2024-10-04] MEDS: NORVASC 10 MG PO (21:35)
[2024-10-05] VITALS (8 sets, daily range): BP systolic 120–158; BP diastolic 69–106; PULSE 65
[2024-10-05 05:29] LABS: Hematocrit 36.4 % (39.0-52.0); Hemoglobin 12.5 g/dL (13.0-18.0); Mean Corp Hgb Conc. 34.3 g/dL (33.0-37.0); Mean Corpuscular Hgb 29.6 pg (27.0-31.0); Mean Corpuscular Volume 86.3 fL (80.0-94.0); Platelet Count 156 10^3/uL (130-400); Red Blood Cell Count 4.22 10^6/uL (4.70-6.10); Red Cell Dist. Width 13.3 % (11.5-14.5); White Blood Cell Count 8.8 10^3/uL (4.8-10.8)
[2024-10-05 05:51] LABS: Blood Urea Nitrogen 34 mg/dl (9-20); Calcium 8.4 mg/dl (8.4-10.2); Carbon Dioxide 27 mmol/L (22-30); Chloride 100 mmol/L (98-107); Estimated Creatinine Clearance 59 ml/min; Glucose 76 mg/dl (70-99); Magnesium 2.2 mg/dl (1.6-2.3); Phosphorus 2.2 mg/dl (2.5-4.5); Potassium 4.6 mmol/L (3.5-5.1); Sodium 134 mmol/L (135-145); eGFR > 60.00
--- NOTE | 2024-10-05 06:04 | PTCARENOTE ---
Report received from LOCKSTITCH POCKET SETTER at around 1999 on 10/04. Patient transferred to new bed and oriented to room. Guards remain at bedside. Call [facility] within reach.
--- NOTE | 2024-10-05 08:35 | PTOTSP ---
Speech Language Pathology
Pt seen for clinical bedside swallow evaluation. P.O. trials of puree, regular solids, and thin liquids provided. Adequate mastication, bolus formation, and A-P transit noted with no oral residue. No overt signs of aspiration.
Recommend:
(1) Regular solids/thin liquids
(2) General aspiration precautions
(3) Meds as tolerated
(4) CORRECTIONAL MAINTENANCE TECHNICIAN to sign off. Please reconsult as indicated
[2024-10-05] MEDS: KEPPRA 750 MG IV (09:43)
[2024-10-05] MEDS: NSS (PRESERVATIVE FREE) 10 ML IV (09:43)
[2024-10-05] MEDS: DILANTIN 100 MG IV (09:43)
[2024-10-05] MEDS: PROTONIX IV 40 MG IV (09:43)
[2024-10-05] MEDS: HEPARIN 5000 UNITS SC ×2 (09:44→17:47)
[2024-10-05] MEDS: MIRALAX 17 GRAMS TUBE (10:19)
--- NOTE | 2024-10-05 10:23 | W.PN.HOSP.TC ---
Today's Communication/Plan
-
resume psych medications
Ok for regular diet
replace Phos
Fluid restriction
Assessment / Plan
Assessment / Plan
PE:
Gen-awake and alert, interactive
HEENT-NC, AT, anicteric, pupils equal, Dobbhoff in place
Neck-supple
CV-reg, no M, +S1/S2
Lungs-clear to auscultation B/L
Abd-soft, NT, ND
Musculoskeletal-mild edema bilateral upper and lower extremities, no deformity
Skin-warm and dry
Neuro-awake and alert, dysarthric
Psych-unable to assess
59yo M with HTN, psychiatric d/o, incarcerated in [facility] brought 2/2 significant sedation, poor responsiveness and seizures with tongue biting. Found severe hyponatremia.
A/P
#Hyponatremia, severe with seizures
Resolved
-most likely 2/2 psychiatric meds which were held
-Serum sodium levels improving
- will continue with salt tablets and fluid restriction
- Patient will have to go on some of his psych medicine to avoid relapse
- seizure precautions, no recurrent seizure
#Acute hypoxic respiratory failure
-2/2 significant lethargy with hyponatremia
-Intubated on 09/28, extubated 10/02
-Now saturating properly on room air
#Acute metabolic encephalopathy
-most likely due to post-ictal state and severe hyponatremia
Now improved, AAOX3
-very alert, talkative and interactive
-CT head without acute hemorrhage or stroke
-d/ w neurologist, no need for MRI. Consulted PT/OT
-Keppra/Dilantin, will d/w neurologist schedule to wean off.
-EEG with generalized slowness
-Ativan PRN
-UDS Neg
-B12, folate WNL
# Hypophosphatasemia
#Hypothermia:
-concern for brain stem damage with hyponatremia
-Resolved, discontinued warming blanket
-TSH and cortisol WNL
#Aspiration pneumonia:
Treated.
-Continue antibiotic treatment with Unasyn
#mild thrombocytopenia
-, might be reactive. No heparin product given on admission
#Mild R to L mediastinal shift
-without signs of pneumothorax on XR
#Psychiatric d/o
- will resume meds
-Will reach out to psych, appreciate help
#Essential HTN with HTN emergency on admission
-Back on his medications
Off vasopressors
DVT ppx SCDs (with stroke w//U)
Full code
Total time spent to see the patient, examine the patient, review data and lab results, discuss treatment plan with patient and nursing staff around 55 minutes
Anticipated Discharge: 24 - 48 hours
Subjective/Interval History
-
Date of Service: October 05, 2024
He wants to eat real food
No pain issues
Lucid and orienetd X3
Objective Data
-
Labs:
Laboratory Results
10/05/24
04:59
WBC 8.8
Hgb 12.5 L
Hct 36.4 L
Plt Count 156
Sodium 134 L
Potassium 4.6
Chloride 100
Carbon Dioxide 27
BUN 34 H
Creatinine 1.2
Glucose 76
Calcium 8.4
Vital Signs:
Vital Signs
Temp Pulse Resp BP Pulse Ox
98.4 F 64 18 158/106 98
10/05/24 07:36 10/05/24 07:36 10/05/24 07:36 10/05/24 07:36 10/05/24 07:36
I&O
10/04/24 10/05/24 10/06/24
06:59 06:59 06:59
Intake Total 7.5 / 2136.5 1919
Output Total 2290 / 2390 176 / 176
Balance -232.5 / -252.5 155 / 155
--- NOTE | 2024-10-05 11:21 | VATNOTE ---
10/05 Requested order to D/C PICC.
--- NOTE | 2024-10-05 12:33 | W.PN.NEURO.1 ---
Today's Communication / Plan
-
Decrease levetiracetam from 750 mg BID to dosing of 500 mg twice a day for 24 hours, then 250 mg twice a day for 24 hours then discontinue
Goal of Normonatremia, normothermia
Neuro Assessment/Plan
Assessment
I. Symptomatic seizure
II. Encephalopathy, significantly improved.
III. Severe hyponatremia, and hypothermia, resolved
Plan
Decrease levetiracetam from 750 mg BID to dosing of 500 mg twice a day for 24 hours, then 250 mg twice a day for 24 hours then discontinue
Goal of Normonatremia, normothermia
Will follow as needed
Subjective/Objective
Subjective Data
Date of Service: October 05, 2024
Objective Data
Vital Signs
Temp Pulse Resp BP Pulse Ox
36.8 C 70 19 140/86 94
10/05/24 11:02 10/05/24 11:02 10/05/24 11:02 10/05/24 11:02 10/05/24 11:02
Lab Results
10/05/24 04:59
10/05/24 04:59
PT 14.3 Sec (11.4-14.6) 09/28/24 07:57
INR 1.08 09/28/24 07:57
APTT 29.3 Sec (23.4-35.0) 09/28/24 07:57
Sodium 134 mmol/L (135-145) L 10/05/24 04:59
Potassium 4.6 mmol/L (3.5-5.1) 10/05/24 04:59
BUN 34 mg/dl (9-20) H 10/05/24 04:59
Glucose 76 mg/dl (70-99) 10/05/24 04:59
Calcium 8.4 mg/dl (8.4-10.2) 10/05/24 04:59
Phosphorus 2.2 mg/dl (2.5-4.5) L 10/05/24 04:59
Whole Bld Vitamin B1 104 nmol/L (70-180) 09/28/24 10:53
Vitamin B12 556 pg/ml (239-931) 09/28/24 07:57
Ur Buprenorphine Cancelled 09/28/24 13:22
Ur Buprenorphine Negative (Negative) 09/28/24 13:22
Patient Allergies
haloperidol [From Haldol] Allergy (Verified 09/28/24 07:45)
Unknown
valproic acid [From Depakene] Allergy (Unverified 10/03/24 17:21)
Unknown
Data Reviewed
-
CT Head: Report Reviewed and Image Reviewed
Labs: Report Reviewed
Reviewed with: Physician
Old Records: Summarized
--- NOTE | 2024-10-05 14:02 | W.PN.UPDATE ---
Update Note
Progress Note Update
Pt seen, resting in bed with guards present. Pt from [facility], states he is not sure of his legal status, noted arrested for trespassing. Pt states he is from [facility], has been going to mental health treatment there for most of his life, states he came to
[place] to get , was homeless. Pt alert, calm, mostly cooperative, with no EPS evident, asking for his lunch tray.
Imp: Schizoaffective d/o, stable on Abilify Maintena GILL, noted last monthly injection on 09/20/24
Rec: Pt appears psychiatrically stable for discharge to [facility] when medically cleared
Would continue Seroquel 100 mg HS
[2024-10-05] MEDS: NEUTRA-PHOS POWDER PACKET 250 MG PO (15:01)
--- NOTE | 2024-10-05 15:25 | CM ---
Chart reviewed and plan is for patient to [facility] when stable, guards are at bedside.
[facility]
Report: [phone]
Discharge instructions
[2024-10-05] MEDS: ZESTRIL 40 MG PO (21:33)
[2024-10-05] MEDS: SODIUM CHLORIDE 1 GRAM PO (21:33)
[2024-10-05] MEDS: NORVASC 10 MG PO (21:33)
[2024-10-05] MEDS: SEROQUEL 100 MG PO (21:33)
[2024-10-05] MEDS: KEPPRA 500 MG PO (21:33)
[2024-10-05] MEDS: HEPARIN SC (23:33)
[2024-10-06 03:25] VITALS: BP 152/84
[2024-10-06 07:58] VITALS: BP 129/81
[2024-10-06] MEDS: KEPPRA 250 MG PO ×2 (09:09→20:33)
[2024-10-06] MEDS: PROTONIX IV 40 MG IV (09:09)
[2024-10-06] MEDS: HEPARIN 5000 UNITS SC ×3 (09:11→23:09)
[2024-10-06] MEDS: NSS (PRESERVATIVE FREE) 10 ML IV (09:11)
[2024-10-06] MEDS: MIRALAX 17 GRAMS PO (09:14)
[2024-10-06] MEDS: FLUSH (NSS) 1 FLUSH IV (09:17)
[2024-10-06] MEDS: SODIUM CHLORIDE 1 GRAM PO ×2 (09:17→20:32)
[2024-10-06 09:32] LABS: Blood Urea Nitrogen 35 mg/dl (9-20); Carbon Dioxide 25 mmol/L (22-30); Chloride 100 mmol/L (98-107); Estimated Creatinine Clearance 55 ml/min; Glucose 85 mg/dl (70-99); Potassium 4.5 mmol/L (3.5-5.1); Sodium 134 mmol/L (135-145); eGFR > 60.00
--- NOTE | 2024-10-06 10:29 | W.PN.HOSP.TC ---
Today's Communication/Plan
-
Discharge in AM
Last day of
Assessment / Plan
Assessment / Plan
PE:
Gen-awake and alert, interactive
HEENT-NC, AT, anicteric, pupils equal,
Neck-supple
CV-reg, no M, +S1/S2
Lungs-clear to auscultation B/L
Abd-soft, NT, ND
Musculoskeletal-no edema, no joint swelling.
Skin-warm and dry
Neuro-awake and alert, dysarthric
Psych-calm, cooperative.
59yo M with HTN, psychiatric d/o, incarcerated in [facility] brought 2/2 significant sedation, poor responsiveness and seizures with tongue biting. Found severe hyponatremia.
A/P
#Hyponatremia, severe with seizures
Resolved
-most likely 2/2 psychiatric meds which were held
-Serum sodium levels improved.
- continue with salt tablets and fluid restriction
- Patient will have to go on some of his psych medicine to avoid relapse
d/w psych. Appreciate help, resume Seroquel.
- seizure precautions, no recurrent seizure
d/w neurologist, last day of [facility] today
#Acute hypoxic respiratory failure
-2/2 significant lethargy with hyponatremia
-Intubated on 09/28, extubated 10/02
-Now saturating properly on room air
#Acute metabolic encephalopathy
-most likely due to post-ictal state and severe hyponatremia
Now improved, AAOX3
-very alert, talkative and interactive
-CT head without acute hemorrhage or stroke
-d/ w neurologist, no need for MRI. Consulted PT/OT
-Kera to wean off.
-EEG with generalized slowness
-Ativan PRN
-UDS Neg
-B12, folate WNL
# Hypophosphatasemia
#Hypothermia:
-Resolved, discontinued warming blanket
-TSH and cortisol WNL
#Aspiration pneumonia:
Treated.
- Finished treatment with Unasyn
#mild thrombocytopenia
-, might be reactive. No heparin product given on admission
#Mild R to L mediastinal shift
-without signs of pneumothorax on XR
#Psychiatric d/o
- resumed meds
-Followed by psych.
#Essential HTN with HTN emergency on admission
-Back on his medications
Off vasopressors, BP stable.
DVT ppx SCDs (with stroke w//U)
Full code
Total time spent to see the patient, examine the patient, review data and lab results, discuss treatment plan with patient, neurologist, psych and nursing staff around 55 minutes
Anticipated Discharge: Within 24 hours
Subjective/Interval History
-
Date of Service: October 06, 2024
No complaints
eating well
Objective Data
-
Labs:
Laboratory Results
10/06/24
07:03
Sodium 134 L
Potassium 4.5
Chloride 100
Carbon Dioxide 25
BUN 35 H
Creatinine 1.3
Glucose 85
Calcium 8.0 L
Vital Signs:
Vital Signs
Temp Pulse Resp BP Pulse Ox
98.0 F 73 18 129/81 100
10/06/24 07:58 10/06/24 07:58 10/06/24 07:58 10/06/24 07:58 10/06/24 07:58
I&O
10/05/24 10/06/24 10/07/24
06:59 06:59 06:59
Intake Total 1919
Output Total 1765 / 1765 900 / 900
Balance 155 / 155 1020 / 1020
--- NOTE | 2024-10-06 10:31 | W.PN.UPDATE ---
Update Note
Progress Note Update
Patient seen at bedside, chart reviewed discussed with staff. No acute events or concerns overnight. Patient awake and alert. No overt psychosis noted. Seroquel was resumed. Na remains 134. Plan to return to [facility] when medically cleared.
Impression/Recommendation: Schizoaffective disorder - Abilify Maintena GILL to be continued, last monthly injection on 09/20/24. Continue Seroquel 100mg HS. Psychiatrically stable for discharge to [facility] when medically cleared.
[2024-10-06 11:20] VITALS: BP 142/76
--- NOTE | 2024-10-06 13:56 | CM ---
Guards at bedside, plan to return to [facility] when stable.
[facility]
Report: [phone]
Discharge instructions
[2024-10-06 15:41] VITALS: BP 122/87
[2024-10-06 19:45] VITALS: BP 154/103
[2024-10-06] MEDS: ZESTRIL 40 MG PO (20:32)
[2024-10-06] MEDS: SEROQUEL 100 MG PO (20:32)
[2024-10-06] MEDS: NORVASC 10 MG PO (20:33)
[2024-10-06 23:33] VITALS: BP 149/90
--- NOTE | 2024-10-07 02:32 | DOWNTIME ---
There was a [employer] Client Gas Pit Worker Downtime on 10/07/2024 from 0100 to 10/07/2023 at 0205 . Downtime documentation of patient's care, including medication administrations, has been reconciled in the electronic record per guidelines. Refer to the
patient's paper chart under the miscellaneous tab to see printed paper medication records and downtime forms.
[2024-10-07 03:02] VITALS: BP 134/92
[2024-10-07 07:10] VITALS: BP 137/84
[2024-10-07] MEDS: HEPARIN 5000 UNITS SC (08:45)
[2024-10-07] MEDS: SODIUM CHLORIDE 1 GRAM PO (08:45)
[2024-10-07] MEDS: MIRALAX 17 GRAMS PO (08:49)
--- NOTE | 2024-10-07 09:03 | W.PN.HOSP.TC ---
Today's Communication/Plan
-
dc
Assessment / Plan
Assessment / Plan
PE:
Gen-awake and alert, interactive
HEENT-NC, AT, anicteric, pupils equal,
Neck-supple
CV-reg, no M, +S1/S2
Lungs-clear to auscultation B/L
Abd-soft, NT, ND
Musculoskeletal-no edema, no joint swelling.
Skin-warm and dry
Neuro-awake and alert, dysarthric
Psych-calm, cooperative.
59yo M with HTN, psychiatric d/o, incarcerated in [facility] brought 2/2 significant sedation, poor responsiveness and seizures with tongue biting. Found severe hyponatremia.
A/P
#Hyponatremia, severe with seizures
Resolved
-most likely 2/2 psychiatric meds which were held
-Serum sodium levels improved.
- continue with regular diet and fluid restriction
- Patient will have to go on some of his psych medicine to avoid relapse
d/w psych. Appreciate help, resumed home medications.
- No recurrent seizure
d/w neurologist, last day of [facility] 10/06.
#Acute hypoxic respiratory failure
-2/2 significant lethargy with hyponatremia
-Intubated on 09/28, extubated 10/02
-Now saturating properly on room air
#Acute metabolic encephalopathy
-most likely due to post-ictal state and severe hyponatremia
Now improved, AAOX3
-very alert, talkative and interactive
-CT head without acute hemorrhage or stroke
-d/ w neurologist, no need for MRI. Consulted PT/OT
-Keppra to wean off.
-EEG with generalized slowness
-UDS Neg
-B12, folate WNL
# Hypophosphatasemia, replaced.
#Hypothermia:
-Resolved, discontinued warming blanket
-TSH and cortisol WNL
#Aspiration pneumonia:
Treated.
- Finished treatment with Unasyn
#mild thrombocytopenia
-, might be reactive. No heparin product given on admission
#Mild R to L mediastinal shift
-without signs of pneumothorax on XR
#Psychiatric d/o
- resumed meds
-Followed by psych.
#Essential HTN with HTN emergency on admission
-Back on his medications
Off vasopressors, BP stable.
DVT ppx SCDs (with stroke w//U)
Full code
Total discharged time spent to see the patient, examine the patient, review data and lab results, discuss discharged plan with patient and nursing staff around 55 minutes
Anticipated Discharge: Today
Subjective/Interval History
-
Date of Service: October 07, 2024
Doing well
Tolerating diet
No seizures
Objective Data
-
Vital Signs:
Vital Signs
Temp Pulse Resp BP Pulse Ox
98.0 F 74 18 137/84 100
10/07/24 07:10 10/07/24 07:10 10/07/24 07:10 10/07/24 07:10 10/07/24 07:10
I&O
10/06/24 10/07/24 10/08/24
06:59 06:59 06:59
Intake Total 1920 / 1920 480 / 480
Output Total 900 / 900 1250 / 1250 475 / 475
Balance 1020 / 1020 -770 / -770 -475 / -475
--- NOTE | 2024-10-07 09:12 | CM ---
Chart reviewed and patient to transfer to [facility] today guards to provide transport.
[facility]
Report: [phone]
Discharge instructions
[2024-10-07 11:10] VITALS: BP 127/72
--- NOTE | 2024-10-07 11:34 | W.DCSUMMARY ---
Discharge Summary
Discharge Data
Date of Admission: 09/28/24
Date of Discharge: 10/07/24
-
Pending Results: No
Hospital Course
59 years old male with history of hypertension psychiatry disorder presented with altered mental status and seizure from correction. Patient was found to have severe hyponatremia and developed subsequent seizures. Patient was admitted to the intensive
care unit. He was intubated for airway protection and was diagnosed with metabolic encephalopathy. Possibility of aspiration pneumonia was not present. Patient was also found to have elevated blood pressure was diagnosed with hypertensive
emergency. Patient was followed by brewmaster. He received intravenous blood pressure medication and sedation. He was followed by flame hardener and received hypertonic saline solution. His sodium started to improve. He was extubated and
subsequently did not need oxygen supplementation. Imaging studies of the chest showed improving pneumonia/pneumonitis. Encephalopathy started to improve and patient returned back to his baseline. Patient was followed by psychiatrist and
neurologist. Seroquel was resumed with stabilizing of sodium level. He was maintained on fluid restriction and to continue with regular diet. Blood pressure stabilized and he tolerated oral blood pressure medications. Patient tolerated diet and
was seen by speech therapist and physical therapist. Patient was found to be stable to go back to correction and to continue with his antipsychotic medication for schizoaffective disorder. Patient remained hemodynamically stable and was discharged in
a stable condition.
Discharge Plan
-
Patient Disposition: Residential
Discharge Diagnosis/Procedures: -Symptomatic seizure, finsihed treatment.
-Metabolic encephalopathy
- Severe hyponatremia, and hypothermia, resolved
Schizoaffective disorder - Abilify Maintena GILL to be continued, last monthly injection on 09/20/24. Continue Seroquel 100mg HS. Psychiatrically stable for discharge to [facility]
Diet: Regular and Restrict fluids to 64 oz
Referrals:
[facility] [Family Provider] -
Prescriptions:
Continued
Abilify Maintena 300 mg Suspension,Extended Rel Syring
300 mg IM QMONTH
Rx Instructions:
NEXT FOSE 10/21/2024 AND 11/18/2024
benztropine 0.5 mg Tablet
0.5 mg PO HS
therapeutic multivitamin Tablet
1 tab PO HS
quetiapine [Seroquel] 100 mg Tablet
100 mg PO HS
amlodipine [Norvasc] 10 mg Tablet
10 mg PO HS
lisinopril 40 mg Tablet
40 mg PO HS
Changed
acetaminophen 325 mg Tablet
625 mg PO BIDPRN PRN (Reason: mild pain) Qty: 0 0RF
Discharge Orders:
Discharge Patient (As Directed); Ordered 10/07/24
Ordered By: Ean Ace
Discharge Date and Time
Discharge Date/Time: 10/07/24 12:38
Print Language: CHINESE
== END 2024-10-07 12:38 | DRG 643 ==
LOC: 4 WEST ACU 10:34
PROVIDERS: Internal Medicine Critical Care Medicine; Nurse Practitioner Family; Nurse Practitioner Primary Care; Radiology Diagnostic Radiology; Specialist; ADMITTING PHYSICIAN Internal Medicine; ATTENDING PHYSICIAN Internal Medicine; CONSULT PHYSICIAN Internal Medicine Critical Care Medicine; CONSULT PHYSICIAN Internal Medicine Nephrology; CONSULT PHYSICIAN Psychiatry & Neurology Neurology; CONSULT PHYSICIAN Psychiatry & Neurology Psychiatry; EMERGENCY PHYSICIAN Emergency Medicine
PROC: 0BH17EZ Insertion of Endotracheal Airway into Trachea, Via Natural or Artificial Opening (ICD-10-PCS; 2024-09-28)
PROC: 02HV33Z Insertion of Infusion Device into Superior Vena Cava, Percutaneous Approach (ICD-10-PCS; 2024-09-28)
PROC: 0T9B70Z Drainage of Bladder with Drainage Device, Via Natural or Artificial Opening (ICD-10-PCS; 2024-09-28)
PROC: 5A1945Z Respiratory Ventilation, 24-96 Consecutive Hours (ICD-10-PCS; 2024-09-28)
PROC: 0D9670Z Drainage of Stomach with Drainage Device, Via Natural or Artificial Opening (ICD-10-PCS; 2024-09-30)
PROC: 0BP1XDZ Removal of Intraluminal Device from Trachea, External Approach (ICD-10-PCS; 2024-10-02)
DX: E22.2 Syndrome of inappropriate secretion of antidiuretic hormone (principal); G93.41 Metabolic encephalopathy; J96.01 Acute respiratory failure with hypoxia; J69.0 Pneumonitis due to inhalation of food and vomit; I16.1 Hypertensive emergency; N17.9 Acute kidney failure, unspecified; F19.20 Other psychoactive substance dependence, uncomplicated; E87.20 Acidosis, unspecified; J90 Pleural effusion, not elsewhere classified; Z59.00 Homelessness unspecified; D69.6 Thrombocytopenia, unspecified; R56.9 Unspecified convulsions; I95.9 Hypotension, unspecified; E16.2 Hypoglycemia, unspecified; I11.9 Hypertensive heart disease without heart failure; B96.5 Pseudomonas (aeruginosa) (mallei) (pseudomallei) as the cause of diseases classified elsewhere; F25.9 Schizoaffective disorder, unspecified; F99 Mental disorder, not otherwise specified; R68.0 Hypothermia, not associated with low environmental temperature; R31.9 Hematuria, unspecified; Z60.8 Other problems related to social environment; T43.95XA Adverse effect of unspecified psychotropic drug, initial encounter; Y92.149 Unspecified place in prison as the place of occurrence of the external cause; Z88.8 Allergy status to other drugs, medicaments and biological substances; Z11.52 Encounter for screening for COVID-19
CPT/HCPCS: 70450; 70496; 70498; 71045; 74018; 80048; 80053; 80185; 80306; 81003; 81015; 82077; 82533; 82550; 82570; 82607; 82746; 82805; 82962; 83605; 83735; 83930; 83935; 84100; 84145; 84146; 84300; 84425; 84443; 84478; 84484; 84550; 85025; 85027; 85610; 85730; 87040; 87070; 87071; 87077; 87186; 87205; 87502; 87811; 92610; 93005; 93306; 94002; 94003; 95816; 96374; 96375; 97162; 99291; J2597; Q9967